=== PATIENT | male | born 1980 | race Caucasian/White ===

== ENCOUNTER 2017-04-06 06:04 | Emergency (ER) | payer SELFPAY ==
[2017-04-06] MEDS ORDERED: ALBUTEROL SULFATE 0.083% NEB 2.5 MG/3 ML AMPUL NEB ONE (07:54)
[2017-04-06] MEDS ORDERED: GUAIFENESIN/D-METHORPHAN (200-20 MG) SYRUP 10 ML PO ONE (07:54)
--- NOTE | 2017-04-06 08:30 | RADIOLOGY REPORT (SQ) ---
EXAM DESCRIPTION: CHEST PA/LAT COMPLETED DATE/TIME: 04/06/2017 8:21 am REASON FOR STUDY: vomiting "dust" cp, lung pain COMPARISON: Chest films 12/01/2010, 04/26/2012 EXAM PARAMETERS: NUMBER OF VIEWS: two views TECHNIQUE: Digital Frontal and Lateral radiographic views of the chest acquired. RADIATION DOSE: NA LIMITATIONS: none FINDINGS: LUNGS AND PLEURA: No opacities, masses or pneumothorax. No pleural effusion. MEDIASTINUM AND HILAR STRUCTURES: No masses or contour abnormalities. HEART AND VASCULAR STRUCTURES: Heart normal size. No evidence for failure. BONES: No acute findings. HARDWARE: None in the chest. OTHER: No other significant finding. IMPRESSION: NO SIGNIFICANT RADIOGRAPHIC FINDING IN THE CHEST. TECHNICAL DOCUMENTATION: JOB ID: [id number] [employer]- All Rights Reserved
--- NOTE | 2017-04-06 08:54 | ER Document Report ---
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 He states when he vomits it is white and "foamy" and looks like white dust. He denies nausea with vomiting, stating that he only vomits because he coughs so much. He denies fevers or chills but states that he has night sweats. He states that the cough is much worse in the morning and then pretty much subsided for the rest of the day but he does have some chest pressure for the rest of the day, shortness of breath. He denies any wheezing, history of asthma or COPD. He does smoke. TRAVEL OUTSIDE OF THE [place] IN LAST 30 DAYS: No - Related Data Allergies/Adverse Reactions: No Known Drug Allergies Allergy (Verified 04/01/14 07:41) Past Medical History - General Information source: Patient - Social History Smoking Status: Current Every Day Smoker Family History: Reviewed & Not Pertinent, Other - does not know family history Past Surgical History: Reports: Hx Oral Surgery - Immunizations Hx Diphtheria, Pertussis, Tetanus Vaccination: Yes - March 2013 Review of Systems - Review of Systems Constitutional: See HPI EENT: No symptoms reported Cardiovascular: No symptoms reported Respiratory: See HPI Gastrointestinal: No symptoms reported Genitourinary: No symptoms reported Male Genitourinary: No symptoms reported Musculoskeletal: No symptoms reported Skin: No symptoms reported Hematologic/Lymphatic: No symptoms reported Neurological/Psychological: No symptoms reported Physical Exam - Notes Notes: PHYSICAL EXAMINATION: GENERAL: Mildly ill-appearing, but in no acute distress. HEAD: Atraumatic, normocephalic. EYES: Pupils equal round and reactive to light, extraocular movements intact, sclera anicteric, conjunctiva are normal. NECK: Normal range of motion, supple without lymphadenopathy LUNGS: CTAB and equal. No wheezes rales or rhonchi. HEART: Regular rate and rhythm without murmurs ABDOMEN: Soft, no tenderness. No guarding, no rebound BACK: no vertebral tenderness, normal ROM GI/: no CVA tenderness EXTREMITIES: Normal range of motion, no pitting edema. No cyanosis. NEUROLOGICAL: Cranial nerves grossly intact. Normal sensory/motor exams. PSYCH: Normal mood, normal affect. SKIN: Warm, Dry, normal turgor, no rashes or lesions noted Course - Re-evaluation Re-evalutation: 04/06/17 08:54 chest x ray negative, pt's vitals are all normal, pulse ox 99-100% on room air with normal respirations. No productive cough here or vomiting. Will place him on azithromycin for 1 month of cough and have him follow up with pulmonology for "white dust/foam" coming up with cough. Discharge - Discharge Clinical Impression: Bronchitis Condition: Stable Disposition: HOME, SELF-CARE Additional Instructions: Return immediately for any new or worsening symptoms. Follow up with primary care provider/time study observer, call tomorrow to make followup appointment. Prescriptions: Azithromycin [Zithromax 250 mg Tablet] 250 mg PO ASDIR PRN #6 tablet PRN Reason: D-Methorphan Hb/Prometh HCl [Promethazine-Dm Syrup] 5 ml PO Q8 PRN #120 ml PRN Reason: Referrals: LESLIE HARVEY MD [ACTIVE STAFF] - Follow up as needed
[2017-04-06] MEDS ORDERED: ALBUTEROL SULFATE HFA (90 MCG/PUFF) 8 GM MDI (1 MDI/ER DISP) IH PRN (08:57)
[2017-04-06 09:08] LABS: ABSOLUTE BASOPHILS # (AUTO) 0.1 10^3/uL (0.0-0.2); ABSOLUTE EOSINOPHILS # (AUTO) 0.2 10^3/uL (0.0-0.6); ABSOLUTE LYMPHOCYTES (AUTO) 3.2 10^3/uL (0.5-4.7); ABSOLUTE MONOCYTES (AUTO) 0.6 10^3/uL (0.1-1.4); ABSOLUTE NEUT (AUTO) 2.1 10^3/uL (1.7-8.2); BASOPHILS % (AUTO) 0.8 % (0-2); EOSINOPHILS % (AUTO) 3.5 % (0-6); HEMATOCRIT 43.2 % (37.9-51.0); HEMOGLOBIN 14.8 g/dL (13.5-17.0); HGB HCT DIFFERENCE 1.2; LYMPHOCYTES % (AUTO) 52.6 % (13-45); MEAN CORPUSCULAR HEMOGLOBIN 32.2 pg (27.0-33.4); MEAN CORPUSCULAR HGB CONC 34.2 g/dL (32.0-36.0); MEAN CORPUSCULAR VOLUME 94 fl (80-97); MONOCYTES % (AUTO) 9.6 % (3-13); RED BLOOD COUNT 4.59 10^6/uL (4.35-5.55); RED CELL DISTRIBUTION WIDTH 13.8 % (11.5-14.0); SEGMENTED NEUTROPHILS % (AUTO) 33.5 % (42-78); WHITE BLOOD COUNT 6.1 10^3/uL (4.0-10.5)
[2017-04-06 09:28] LABS: ANION GAP 14 (5-19); BLOOD UREA NITROGEN 13 mg/dL (7-20); CALCIUM 9.8 mg/dL (8.4-10.2); CARBON DIOXIDE 22 mmol/L (22-30); CHLORIDE 109 mmol/L (98-107); GLUCOSE 87 mg/dL (75-110); POTASSIUM 4.1 mmol/L (3.6-5.0); SODIUM 145.2 mmol/L (137-145)
[2017-04-06 09:35] VITALS: BP 141/97
[2017-04-06 09:37] LABS: ALANINE AMINOTRANSFERASE 25 U/L (21-72); ALBUMIN 4.5 g/dL (3.5-5.0); ALKALINE PHOSPHATASE 69 U/L (38-126); ASPARTATE AMINO TRANSFERASE 18 U/L (17-59); BILIRUBIN,DIRECT 0.4 mg/dL (0.0-0.4); BILIRUBIN,TOTAL 0.5 mg/dL (0.2-1.3); LIPASE 314.1 U/L (23-300); TOTAL PROTEIN 7.4 g/dL (6.3-8.2)
[2017-04-06 11:35] LABS: PROTHROMBIN TIME 11.9 SEC (11.4-15.4)
--- NOTE | 2017-04-06 13:45 | EKG REPORT ---
SEVERITY:- ABNORMAL ECG - SINUS RHYTHM ABNRM R PROG, CONSIDER ASMI OR LEAD PLACEMENT V1 AND V2 FLIPPED. : Confirmed by: Cristofer Pacheco MD 06-Apr-2017 13:44:38
== END 2017-04-06 09:42 | disposition home or self-care (01) ==
LOC: ER 06:04
DX: J40 Bronchitis, not specified as acute or chronic (principal); R05 Cough; R61 Generalized hyperhidrosis; R07.89 Other chest pain; R06.02 Shortness of breath; F17.200 Nicotine dependence, unspecified, uncomplicated
CPT/HCPCS: 36415; 71020; 80053; 83690; 85025; 85610; 93005; 93010; 99284

== ENCOUNTER 2018-02-02 16:58 | Emergency (ER) | payer SELFPAY ==
[2018-02-02 17:04] VITALS: BP 166/105
--- NOTE | 2018-02-02 17:22 | ER Document Report ---
HPI - HPI Pain Level: 2 Notes: Patient is a 37-year-old male with no significant past medical history who presents to the ED complaining of posterior rib pain to his mid to lower ribs status post injury 2-3 days ago. Patient states that he slipped getting out of the bathtub and hit his ribs against the toilet. Patient states that he does have some bruising noted in that area and occasional pain with a deep breath on that posterior rib side. Patient states that he is otherwise eating and drinking without difficulties. He is able to ambulate without any difficulties as well or dyspnea on exertion. He denies any drug allergies or being on any blood thinners. Patient states that he just wants his ribs checked out and would like an x-ray. Denies any drug allergies. Patient does admit to smoking but denies IV drug use. Denies any loss of consciousness. Denies any headache , fever, head injury, neck pain, changes in vision/speech/mentation/hearing, URI , sore throat, chest pain, palpitations, syncope, cough, shortness of breath, wheeze, dyspnea, abdominal pain, nausea/vomiting/diarrhea, urinary retention, dysuria, hematuria, loss of control of bowel or bladder, numbness/tingling, saddle anesthesia, muscle paralysis/weakness, or rash. - ROS Systems Reviewed and Negative: Yes All other systems reviewed and negative Past Medical History - Social History Smoking Status: Current Every Day Smoker Family History: Reviewed & Not Pertinent, Other - does not know family history Past Surgical History: Reports: Hx Oral Surgery - Immunizations Hx Diphtheria, Pertussis, Tetanus Vaccination: Yes - March 2013 Vertical Provider Document - CONSTITUTIONAL Agree With Documented VS: Yes Notes: PHYSICAL EXAMINATION: GENERAL: Well-appearing, well-nourished and in no acute distress. LUNGS: Breath sounds clear to auscultation bilaterally and equal. No wheezes rales or rhonchi. HEART: Regular rate and rhythm without murmurs, rubs, gallops. ABDOMEN: Soft, nontender, nondistended abdomen. No guarding, no rebound. No masses appreciated. Normal bowel sounds present. No CVA tenderness bilaterally. No pulsatile mass Musculoskeletal: LE's b/l: FROM to passive/active. Strength 5+/5. No deficits noted. No bony tenderness of extremities. Back: FROM to passive/active. Strength 5+/5. No vertebral point tenderness, stepoffs, or deformities. SLR negative b/l. No SI jt tenderness. No foot drop + scant ecchymosis to the rt posterior mid/lower ribs with tenderness to palp, correlates with pain described. No chest wall tenderness. No obvious step- offs. Extremities: No cyanosis, clubbing, or edema b/l. Peripheral pulses 2+. Capillary refill less than 2 seconds. NEUROLOGICAL: Normal speech, normal gait. Normal sensory, motor exams. Reflexes 2+ b/l. PSYCH: Normal mood, normal affect. SKIN: Warm, Dry, normal turgor, no rashes or lesions noted. - INFECTION CONTROL TRAVEL OUTSIDE OF THE [place] IN LAST 30 DAYS: No Course - Re-evaluation Re-evalutation: 02/02/18 17:47 Patient is an afebrile, well-hydrated, 37-year-old male who presents to the ED with right posterior rib pain, suspect contusion. Vitals are acceptable. PE is otherwise unremarkable. X-ray was unremarkable for any acute pathology. He has no significant tachycardia, tachypnea, or hypoxia. Lungs are clear to auscultation bilaterally with breath sounds present throughout. Patient is tolerating p.o. without difficulties. I did visually inspect patient's urine and there is no bre hematuria. No other labs or imaging warranted at this time based on H&P. Low suspicion for any meningitis, fracture, expanding/ ruptured AAA, cauda equina syndrome, epidural mass lesion/abscess, herniated disc causing severe spinal stenosis, or other systemic infection at this time. Patient is aware that his condition can change from initial presentation and that he needs monitor symptoms closely for any acute changes. I will send him home with a prescription for naproxen. Conservative measures otherwise for symptoms. Recheck with your PCM in 3-5 days. Consider consult orthopedics. Return to the ED with any worsening/concerning symptoms otherwise as reviewed discharge. Patient is in agreement. - Vital Signs Vital signs: Temp Pulse Resp BP Pulse Ox 98.6 F 79 18 166/105 H 97 02/02/18 17:03 02/02/18 17:03 02/02/18 17:03 02/02/18 17:03 02/02/18 17:03 Discharge - Discharge Clinical Impression: Rib pain on right side Condition: Stable Disposition: HOME, SELF-CARE Instructions: Rib Contusion ([facility]) Additional Instructions: Rest, Ice, Compression Tylenol/ibuprofen as needed Light stretches daily Strength exercises as able Moist heat and massage may help F/u with your PCP in 3-5 days for a recheck Consider consult(s) with Orthopedics/physical therapy for ongoing/worsening symptoms Return to the ED with any worsening symptoms and/or development of fever, headache, chest pain, palpitations, syncope, shortness of breath, trouble breathing, abdominal pain, n/v/d, blood in stool/urine, loss of control of bowel /bladder, urinary retention, muscle weakness/paralysis, saddle anesthesia, numbness/tingling, or other worsening symptoms that are concerning to you. Prescriptions: Naproxen 500 mg PO BID PRN #30 tablet PRN Reason: Forms: Elevated Blood Pressure, Return to Work Referrals: [facility] [Provider Group] - Follow up as needed
--- NOTE | 2018-02-02 17:36 | RADIOLOGY REPORT (SQ) ---
EXAM DESCRIPTION: RIBS RIGHT W/PA CHEST COMPLETED DATE/TIME: 02/02/2018 5:24 pm REASON FOR STUDY: rib pain s/p fall COMPARISON: None. TECHNIQUE: Frontal view of the chest and additional views of the right ribs acquired. NUMBER OF VIEWS: 4 LIMITATIONS: None. FINDINGS: FRONTAL CXR: No pneumothorax. No pleural effusion. No atelectasis or infiltrates. RIBS: No displaced rib fractures. No lytic or blastic bony lesions. OTHER: No other significant finding. IMPRESSION: NO PNEUMOTHORAX. NO DISPLACED RIB FRACTURES. COMMENT: SITE OF TRAUMA/COMPLAINT MARKED/STAMP COMPLETED: YES. TECHNICAL DOCUMENTATION: JOB ID: [id number] [employer]- All Rights Reserved Reading location - IP/workstation name: [email or web address]
== END 2018-02-02 18:19 | disposition home or self-care (01) ==
LOC: ER 16:58
DX: R07.81 Pleurodynia (principal); W01.198A Fall on same level from slipping, tripping and stumbling with subsequent striking against other object, initial encounter; Y93.E1 Activity, personal bathing and showering; F17.200 Nicotine dependence, unspecified, uncomplicated
CPT/HCPCS: 99283

== ENCOUNTER 2018-07-25 05:52 | Emergency (ER) | payer SELFPAY ==
--- NOTE | 2018-07-25 07:11 | RADIOLOGY REPORT (SQ) ---
EXAM DESCRIPTION: XR HAND 3 OR MORE VIEWS COMPLETED DATE/TME: 07/25/2018 00:00 CLINICAL HISTORY: 37 years Male, punched a wall COMPARISON: None. Findings: 0.2 cm avulsion fracture fragment at the medial base of the right first metacarpus.. 0.3 x 0.1 cm curvilinear calcification associated with the right triquetrum at the medial aspect of the right wrist may indicate triquetral fracture of indeterminate age. Bones, joints, and soft tissues of the RIGHT XR HAND 4VIEWS appear otherwise intact. IMPRESSION: 1. A 0.2 cm avulsion fracture fragment at the base of the right first metacarpus. 2. Tiny triquetral fracture fragment or calcification.
[2018-07-25] MEDS ORDERED: ACETAMINOPHEN 325 MG TABLET ONE (07:31)
[2018-07-25] MEDS ORDERED: ACETAMINOPHEN 325 MG TABLET PO ONE (07:33)
[2018-07-25] MEDS ORDERED: KETOROLAC TROMETHAMINE 60 MG/2 ML SDV IM ONE (07:40)
--- NOTE | 2018-07-25 07:57 | ER Document Report ---
HPI - HPI Time Seen by Provider: 07/25/18 07:12 Pain Level: 3 Notes: Patient is a 37-year-old male who presents with chief complaint of right hand and wrist pain. Patient reports that he punched a wall last night. - MUSCULOSKELETAL Musculoskeletal: REPORTS: Extremity pain - R hand after punching a door Past Medical History - General Information source: Patient - Social History Smoking Status: Current Every Day Smoker Frequency of alcohol use: Social Drug Abuse: None Family History: Reviewed & Not Pertinent, Other - does not know family history Patient has suicidal ideation: No Patient has homicidal ideation: No - Medical History Medical History: Negative Renal/ Medical History: Denies: Hx Peritoneal Dialysis Past Surgical History: Reports: Hx Oral Surgery, Hx Orthopedic Surgery - Immunizations Hx Diphtheria, Pertussis, Tetanus Vaccination: Yes - March 2013 Vertical Provider Document - CONSTITUTIONAL Notes: PHYSICAL EXAMINATION: GENERAL: Well-appearing, well-nourished and in no acute distress. HEAD: Atraumatic, normocephalic. EYES: Pupils equal round extraocular movements intact, conjunctiva are normal. ENT: Nares patent NECK: Normal range of motion LUNGS: No respiratory distress Musculoskeletal: Limited range of motion to right hand, normal sensation distal to injury. Radial and ulnar pulses are present. No open wounds noted. No snuffbox tenderness. NEUROLOGICAL: Normal speech, normal gait. PSYCH: Normal mood, normal affect. SKIN: Warm, Dry, normal turgor, no rashes or lesions noted. - INFECTION CONTROL TRAVEL OUTSIDE OF THE [place] IN LAST 30 DAYS: No Course - Re-evaluation Re-evalutation: 07/25/18 07:52 X-ray reveals a 0.2 cm avulsion fracture fragment at the base of the right first metacarpus, there is also a tiny triquetral fracture fragment or calcification noted. Patient will be placed in a splint and referred to orthopedics. Patient requesting non-opioid analgesics. - Vital Signs Vital signs: Temp Pulse Resp BP Pulse Ox 97.6 F 89 16 152/110 H 96 07/25/18 05:56 07/25/18 05:56 07/25/18 05:56 07/25/18 05:56 07/25/18 05:56 Discharge - Discharge Clinical Impression: Right hand fracture Qualifiers: Encounter type: initial encounter Fracture type: closed Qualified Code(s): S62.91XA - Unspecified fracture of right wrist and hand, initial encounter for closed fracture Condition: Stable Disposition: HOME, SELF-CARE Additional Instructions: Fracture You have a fracture. The typical broken bone requires only protection and sufficient time for healing. "Setting" is necessary only if the bones are crooked or out of position. The physician will re-assess you periodically to make certain that the bone heals without complications. It's important that you follow the instructions given you. The initial treatment is immobilization, elevation of the injury, and cold packs. Not all fractures require a cast. Depending on the location and type of fracture, immobilization may consist of a splint, cast, sling, bulky dressing , or simply rest. The length of time required for healing depends on the location and type of fracture, and on the age of the patient. The treatment plan the physician has outlined for you is customized to your fracture and health condition. Call the doctor or return at once if pain becomes severe, or if severe swelling or numbness develop. Ice & Elevation Apply ice packs frequently against the painful area. Many different schedules are recommended, such as "20 minutes on, 20 minutes off" or "one hour ice, two hours rest." If you need to work, you may need to go longer between ice treatments. You should plan to have the area ice packed AT LEAST one- fourth of the time. The ice should be applied over the wrap, tape, or splint, or over a layer of cloth -- not directly against the skin. Some ice bags have a built-in cloth and can be put directly on the skin. Your injured part should be elevated as much as possible over the next 48 hours. Try to keep the injury above the level of the heart. Avoid use of the injured area. Elevation and rest will decrease the swelling. Ibuprofen Ibuprofen is an excellent, safe drug for pain control. In addition, it has potent antiinflammatory effects which are beneficial, especially in the treatment of injuries, arthritis, or tendonitis. It's best to take ibuprofen with food. Persons with ulcer disease or allergy to aspirin should notify their physician of this before taking ibuprofen. Take the medication exactly as prescribed. Don't take additional doses unless instructed to do so by your doctor. If you develop wheezing, shortness of breath, hives, faintness, stomach pain, vomiting, or dark black stools, return for re-evaluation at once. Please take ibuprofen 800 mg every 8 hours for pain. You can also take Tylenol 650 mg every 4 hours. Ice and elevate as outlined above. Follow-up with orthopedics, call them tomorrow to set up an appointment. Return to the emergency department if you develop extreme pain, severe swelling or numbness. Prescriptions: Ibuprofen [Motrin 800 mg Tablet] 800 mg PO Q8H PRN #30 tab PRN Reason: Forms: Return to Work
[2018-07-25 08:45] VITALS: BP 159/111
== END 2018-07-25 08:43 | disposition home or self-care (01) ==
LOC: ER 05:52
DX: S62.231A Other displaced fracture of base of first metacarpal bone, right hand, initial encounter for closed fracture (principal); W22.8XXA Striking against or struck by other objects, initial encounter; F17.200 Nicotine dependence, unspecified, uncomplicated
CPT/HCPCS: 99283

== ENCOUNTER 2018-08-28 10:39 | Emergency (ER) | payer SELFPAY ==
[2018-08-28 11:02] VITALS: BP 150/101
== END 2018-08-28 15:55 | disposition left against medical advice (07) ==
LOC: ER 10:39
DX: Z53.21 Procedure and treatment not carried out due to patient leaving prior to being seen by health care provider (principal)

== ENCOUNTER 2018-08-30 08:11 | Emergency (ER) | payer SELFPAY ==
--- NOTE | 2018-08-30 09:39 | ER Document Report ---
ED General - General Chief Complaint: Cough Stated Complaint: FLU LIKE SYMPTOMS Time Seen by Provider: 08/30/18 09:20 Notes: Patient is a 37-year-old male that presents to the emergency department for chief complaint of cough and shortness of breath patient states his been having cough is been having body aches and is generally weak, has had nausea and vomiting associated as well. He states he coughed so hard that he vomits. He said associated diarrhea with this as well but denies of any chest pain or abdominal pain. Has had fevers he is unaware of any sick contacts although his, but has not been as sick as him without the GI symptoms. He denies any other complaints at this time. Currently rates his pain as a 4 out of 10 is gener alized aching over the body. Past Medical History: Denies chronic medical conditions Past Surgical History: Hernia repair Social History: Admits to smoking cigarettes daily, denies alcohol or illicit drug use. Family History: Reviewed and noncontributory for presenting illness Allergies: Reviewed, see documented allergy list. REVIEW OF SYSTEMS: Other than noted above, the 12 point review of systems was reviewed with the patient and were negative, all pertinent findings are included in the HPI. PHYSICAL EXAMINATION: Vital signs reviewed, nursing noted reviewed. GENERAL: Ill-appearing male, coughing on exam HEAD: Atraumatic, normocephalic. EYES: Eyes appear normal, extraocular movements intact, sclera anicteric, conjunctiva are normal. ENT: nares patent, oropharynx clear without exudates. Moist mucous membranes. NECK: Normal range of motion, supple without lymphadenopathy LUNGS: Some mild expiratory wheezing noted throughout all lung tolbert, no respiratory distress however HEART: Rate tachycardic, regular rhythm, no audible murmur ABDOMEN: Soft, nontender, normoactive bowel sounds. No rebound, guarding, or rigidity. No masses appreciated. EXTREMITIES: Nontender, good range of motion, no pitting or edema. NEUROLOGICAL: No focal neurological deficits. Moves all extremities spontaneously Motor and sensory grossly intact on exam. PSYCH: Normal mood, normal affect. SKIN: Warm, Dry, normal turgor, no rashes or lesions noted on exposed skin TRAVEL OUTSIDE OF THE [place] IN LAST 30 DAYS: No - Related Data Allergies/Adverse Reactions: No Known Drug Allergies Allergy (Verified 08/30/18 08:14) Past Medical History - Social History Smoking Status: Current Every Day Smoker Family History: Reviewed & Not Pertinent, Other - does not know family history Renal/ Medical History: Denies: Hx Peritoneal Dialysis Past Surgical History: Reports: Hx Oral Surgery, Hx Orthopedic Surgery - Immunizations Hx Diphtheria, Pertussis, Tetanus Vaccination: Yes - March 2013 Physical Exam - Vital signs Vitals: Temp Pulse Resp BP Pulse Ox 98.2 F 124 H 20 130/82 H 96 08/30/18 08:18 08/30/18 08:18 08/30/18 08:18 08/30/18 08:18 08/30/18 08:18 Course - Re-evaluation Re-evalutation: Patient seen and examined vital signs reviewed. Laboratory data and imaging were ordered as appropriate for the patient's presenting symptoms and complaint, with consideration of any critical or life threatening conditions that may be associated with their obtained history and exam as noted above. Patient was treated with IV fluid bolusing times 2 L, given Toradol for his pain as well and his body aches, he is also given a DuoNeb breathing treatment Results were reviewed when available and demonstrated chest x-ray which revealed right upper lobe infiltrate, concerning for pneumonia, which fit clinically with his presentation, there is no leukocytosis, patient did however was noted to have transaminitis, likely secondary to his acute illness, patient did not have any right upper quadrant abdominal pain, denied history of hepatitis, he was nonjaundiced, I advised him as he was feeling better after treatment with IV fluids, and given a dose of IV doxycycline, that he will need to follow-up with a primary care physician to repeat this blood work in 2 weeks to see if it is improving or changing, as he may need acute hepatitis panel he. Patient verbalized agreement to this plan of care, he will be prescribed a prescription for doxycycline and given albuterol inhaler to take at home as well. He is also given a prescription for Tessalon Perles Evaluation was most consistent with community-acquired pneumonia Results were discussed with the patient at this point, after careful consideration I feel that that patient can be discharged from the emergency department, the patient was educated treatments and reasons to return to the emergency department based on their presumed diagnosis as noted above, they were advised to followup with a primary care physician in 2-3 days. Patient was agreeable to plan of care. *Note is created using voice recognition software and may contain spelling, syntax or grammatical errors. Laboratory 08/30/18 08/30/18 08/30/18 09:43 09:43 09:43 WBC 7.1 RBC 4.84 Hgb 15.7 Hct 43.8 MCV 90 MCH 32.4 MCHC 35.8 RDW 13.2 Plt Count 144 L Seg Neutrophils % 82.8 H Lymphocytes % 11.0 L Monocytes % 5.9 Eosinophils % 0.0 Basophils % 0.3 Absolute Neutrophils 5.9 Absolute Lymphocytes 0.8 Absolute Monocytes 0.4 Absolute Eosinophils 0.0 Absolute Basophils 0.0 PT 14.1 INR 1.04 Sodium 134.4 L Potassium 3.3 L Chloride 99 Carbon Dioxide 20 L Anion Gap 15 BUN 18 Creatinine 1.02 Est GFR ( Amer) > 60 Est GFR (Non-Af Amer) > 60 Glucose 105 Calcium 9.4 Total Bilirubin 0.8 Direct Bilirubin 0.5 H Neonat Total Bilirubin Not Reportable Neonat Direct Bilirubin Not Reportable Neonat Indirect Bili Not Reportable AST 549 H ALT 414 H Alkaline Phosphatase 172 H Troponin I Total Protein 6.8 Albumin 4.4 Influenza A (Rapid) Influenza B (Rapid) 08/30/18 08/30/18 09:43 10:02 WBC RBC Hgb Hct MCV MCH MCHC RDW Plt Count Seg Neutrophils % Lymphocytes % Monocytes % Eosinophils % Basophils % Absolute Neutrophils Absolute Lymphocytes Absolute Monocytes Absolute Eosinophils Absolute Basophils PT INR Sodium Potassium Chloride Carbon Dioxide Anion Gap BUN Creatinine Est GFR ( Amer) Est GFR (Non-Af Amer) Glucose Calcium Total Bilirubin Direct Bilirubin Neonat Total Bilirubin Neonat Direct Bilirubin Neonat Indirect Bili AST ALT Alkaline Phosphatase Troponin I < 0.012 Total Protein Albumin Influenza A (Rapid) NEGATIVE Influenza B (Rapid) NEGATIVE Chest X-Ray 08/30/18 09:20 IMPRESSION: New right upper lobe hazy opacification most compatible with pneumonia. - Vital Signs Vital signs: Temp Pulse Resp BP Pulse Ox 98.1 F 124 H 14 135/93 H 93 08/30/18 12:01 08/30/18 08:18 08/30/18 12:01 08/30/18 12:01 08/30/18 12:01 - Laboratory Result Diagrams: 08/30/18 09:43 08/30/18 09:43 Laboratory results interpreted by me: 08/30/18 08/30/18 09:43 09:43 Plt Count 144 L Seg Neutrophils % 82.8 H Lymphocytes % 11.0 L Sodium 134.4 L Potassium 3.3 L Carbon Dioxide 20 L Direct Bilirubin 0.5 H AST 549 H ALT 414 H Alkaline Phosphatase 172 H - EKG Interpretation by Me Additional EKG results interpreted by me: EKG demonstrates sinus rhythm with a ventricular rate of 89 bpm, left axis deviation, normal intervals, no evidence of acute ischemia in this EKG, this is compared with prior EKG from 04/06/2017, without significant change. Discharge - Discharge Clinical Impression: Transaminitis Community acquired pneumonia Qualifiers: Laterality: right Lung location: upper lobe of lung Qualified Code(s): J18.1 - Lobar pneumonia, unspecified organism Condition: Stable Disposition: HOME, SELF-CARE Instructions: Pneumonia ([facility]) Additional Instructions: Please take the prescribed antibiotics twice daily for 10 days, and please follow-up with a primary care physician, you having given 2 phone numbers to call to try to get in contact with 1, use the albuterol inhaler you are given 2 puffs every 4 hours as needed, and take the Tessalon Perles to help with her cough. If your symptoms are not improving in the next 48 hours or worsening over that period of time, do not hesitate to return to the emergency department. Prescriptions: Benzonatate [Tessalon Perle 100 mg Capsule] 100 mg PO Q8HP PRN #30 cap PRN Reason: Cough RX: Doxycycline Hyclate 100 mg PO BID #20 capsule Forms: Return to Work Referrals: [facility] [Provider Group] - Follow up in 3-5 days [facility] [Provider Group] - Follow up in 3-5 days
[2018-08-30] MEDS ORDERED: ONDANSETRON HCL INJ/PF 4 MG/2 ML SDV IV ONE (09:49)
[2018-08-30] MEDS ORDERED: NORMAL SALINE 1000 ML 1,000 ML IV ONE (09:49)
[2018-08-30] MEDS ORDERED: KETOROLAC TROMETHAMINE INJ/PF 30 MG/1 ML SDV IV ONE (09:50)
--- NOTE | 2018-08-30 09:50 | RADIOLOGY REPORT (SQ) ---
EXAM DESCRIPTION: CHEST SINGLE VIEW COMPLETED DATE/TIME: 08/30/2018 9:40 am REASON FOR STUDY: chest pain COMPARISON: 04/06/2017 EXAM PARAMETERS: NUMBER OF VIEWS: One view. TECHNIQUE: Single frontal radiographic view of the chest acquired. RADIATION DOSE: NA LIMITATIONS: None. FINDINGS: LUNGS AND PLEURA: New hazy opacification of the right upper lobe. No pleural effusion or pneumothorax. MEDIASTINUM AND HILAR STRUCTURES: No masses. Contour normal. HEART AND VASCULAR STRUCTURES: Heart normal in size. Normal vasculature. BONES: No acute findings. HARDWARE: None in the chest. OTHER: No other significant finding. IMPRESSION: New right upper lobe hazy opacification most compatible with pneumonia. TECHNICAL DOCUMENTATION: JOB ID: [id number] [employer]- All Rights Reserved Reading location - IP/workstation name: [email or web address]
[2018-08-30 09:56] LABS: ABSOLUTE LYMPHOCYTES (AUTO) 0.8 10^3/uL (0.5-4.7); ABSOLUTE MONOCYTES (AUTO) 0.4 10^3/uL (0.1-1.4); ABSOLUTE NEUT (AUTO) 5.9 10^3/uL (1.7-8.2); BASOPHILS % (AUTO) 0.3 % (0-2); HEMATOCRIT 43.8 % (37.9-51.0); HEMOGLOBIN 15.7 g/dL (13.5-17.0); MEAN CORPUSCULAR HEMOGLOBIN 32.4 pg (27.0-33.4); MEAN CORPUSCULAR HGB CONC 35.8 g/dL (32.0-36.0); MEAN CORPUSCULAR VOLUME 90 fl (80-97); MONOCYTES % (AUTO) 5.9 % (3-13); PLATELET COUNT 144 10^3/uL (150-450); RED BLOOD COUNT 4.84 10^6/uL (4.35-5.55); RED CELL DISTRIBUTION WIDTH 13.2 % (11.5-14.0); SEGMENTED NEUTROPHILS % (AUTO) 82.8 % (42-78); TOTAL CELLS COUNTED % (AUTO) 100 %; WHITE BLOOD COUNT 7.1 10^3/uL (4.0-10.5)
[2018-08-30 10:03] LABS: INTERNATIONAL RATION (INR) 1.04; PROTHROMBIN TIME 14.1 SEC (11.4-15.4)
[2018-08-30] MEDS ORDERED: DOXYCYCLINE HYCLATE INJ 100 MG VIAL IV ONE (10:04)
[2018-08-30] MEDS ORDERED: IPRATROPIUM/ALBUTEROL 0.5-2.5 MG/3 ML AMPUL NEB ONE (10:10)
[2018-08-30 10:13] LABS: ALANINE AMINOTRANSFERASE 414 U/L (21-72); ALBUMIN 4.4 g/dL (3.5-5.0); ALKALINE PHOSPHATASE 172 U/L (38-126); ANION GAP 15 (5-19); ASPARTATE AMINO TRANSFERASE 549 U/L (17-59); BILIRUBIN,DIRECT 0.5 mg/dL (0.0-0.4); BILIRUBIN,TOTAL 0.8 mg/dL (0.2-1.3); BLOOD UREA NITROGEN 18 mg/dL (7-20); CALCIUM 9.4 mg/dL (8.4-10.2); CARBON DIOXIDE 20 mmol/L (22-30); CHLORIDE 99 mmol/L (98-107); GLUCOSE 105 mg/dL (75-110); POTASSIUM 3.3 mmol/L (3.6-5.0); SODIUM 134.4 mmol/L (137-145); TOTAL PROTEIN 6.8 g/dL (6.3-8.2)
[2018-08-30 10:32] LABS: A TYPE INFLUENZA AG NEGATIVE (NEGATIVE); B INFLUENZA AG NEGATIVE (NEGATIVE)
--- NOTE | 2018-08-30 11:08 | EKG REPORT ---
SEVERITY:- ABNORMAL ECG - SINUS RHYTHM LAD, CONSIDER LEFT ANTERIOR FASCICULAR BLOCK : Confirmed by: Cristofer Pacheco MD 30-Aug-2018 11:06:49
[2018-08-30] MEDS ORDERED: RINGERS SOLUTION,LACTATED 1,000 ML IV ONE (11:25)
[2018-08-30] MEDS ORDERED: ALBUTEROL SULFATE HFA (90 MCG/PUFF) 8 GM MDI (1 MDI/ER DISP) IH ONE (12:09)
[2018-08-30 12:29] VITALS: BP 135/93
== END 2018-08-30 12:39 | disposition home or self-care (01) ==
LOC: ER 08:11
DX: J18.1 Lobar pneumonia, unspecified organism (principal); R74.0 Nonspecific elevation of levels of transaminase and lactic acid dehydrogenase [LDH]; R05 Cough; R06.02 Shortness of breath; R53.1 Weakness; R11.2 Nausea with vomiting, unspecified; R52 Pain, unspecified; R19.7 Diarrhea, unspecified; R06.2 Wheezing; R00.0 Tachycardia, unspecified; F17.210 Nicotine dependence, cigarettes, uncomplicated
CPT/HCPCS: 93005; 36415; 85025; 85610; 80053; 84484; 87804; 71045; 93010; J3490 ×2; J1885; J2405; J7030; J7120; J7620

== ENCOUNTER 2018-09-06 09:35 | Inpatient (IN) | payer SELFPAY ==
[2018-09-06] MEDS ORDERED: ALBUTEROL SULFATE 0.083% NEB 2.5 MG/3 ML AMPUL NEB ONE (10:00)
--- NOTE | 2018-09-06 10:02 | ER Document Report ---
ED Medical Screen (RME) - General Chief Complaint: Cold Symptoms Stated Complaint: HEADACHE/CHEST DISCOMFORT Time Seen by Provider: 09/06/18 09:54 Notes: 37-year-old male. Here third visit for worsening pneumonia, shortness of breath, chest pain. Went back to work 2 days ago but having extreme shortness of breath at this time as well as some right-sided chest pain. I have greeted and performed a rapid initial assessment of this patient. A comprehensive ED assessment and evaluation of the patient, analysis of test results and completion of the medical decision making process will be conducted by additional ED providers. TRAVEL OUTSIDE OF THE [place] IN LAST 30 DAYS: No - Related Data Allergies/Adverse Reactions: No Known Drug Allergies Allergy (Verified 09/06/18 09:36) Past Medical History - Social History Frequency of alcohol use: None Drug Abuse: None Renal/ Medical History: Denies: Hx Peritoneal Dialysis Past Surgical History: Reports: Hx Oral Surgery, Hx Orthopedic Surgery - Immunizations Hx Diphtheria, Pertussis, Tetanus Vaccination: Yes - March 2013 Review of Systems - Review of Systems Notes: Review of systems positive for the following: Shortness of breath, chest pain, intermittent fever Physical Exam - Vital signs Vitals: Temp Pulse Resp BP Pulse Ox 97.4 F 75 20 147/91 H 98 09/06/18 09:44 09/06/18 09:44 09/06/18 09:44 09/06/18 09:44 09/06/18 09:44 - Respiratory Respiratory status: No respiratory distress Chest status: Nontender Breath sounds: Rales, Wheezing - Cardiovascular Rhythm: Regular Heart sounds: Normal auscultation Murmur: No Course - Vital Signs Vital signs: Temp Pulse Resp BP Pulse Ox 97.4 F 75 20 147/91 H 98 09/06/18 09:44 09/06/18 09:44 09/06/18 09:44 09/06/18 09:44 09/06/18 09:44
[2018-09-06 10:16] LABS: ABSOLUTE LYMPHOCYTES (AUTO) 1.2 10^3/uL (0.5-4.7); ABSOLUTE MONOCYTES (AUTO) 0.7 10^3/uL (0.1-1.4); ABSOLUTE NEUT (AUTO) 4.1 10^3/uL (1.7-8.2); BASOPHILS % (AUTO) 0.3 % (0-2); EOSINOPHILS % (AUTO) 0.4 % (0-6); HEMATOCRIT 35.4 % (37.9-51.0); HEMOGLOBIN 12.6 g/dL (13.5-17.0); LYMPHOCYTES % (AUTO) 20.3 % (13-45); MEAN CORPUSCULAR HEMOGLOBIN 31.9 pg (27.0-33.4); MEAN CORPUSCULAR HGB CONC 35.5 g/dL (32.0-36.0); MEAN CORPUSCULAR VOLUME 90 fl (80-97); MONOCYTES % (AUTO) 11.4 % (3-13); PLATELET COUNT 386 10^3/uL (150-450); RED BLOOD COUNT 3.94 10^6/uL (4.35-5.55); RED CELL DISTRIBUTION WIDTH 13.4 % (11.5-14.0); SEGMENTED NEUTROPHILS % (AUTO) 67.6 % (42-78); TOTAL CELLS COUNTED % (AUTO) 100 %; WHITE BLOOD COUNT 6.1 10^3/uL (4.0-10.5)
[2018-09-06] MEDS ORDERED: IPRATROPIUM/ALBUTEROL 0.5-2.5 MG/3 ML AMPUL NEB ONE (10:25)
[2018-09-06] MEDS ORDERED: KETOROLAC TROMETHAMINE INJ/PF 30 MG/1 ML SDV IV ONE (10:25)
[2018-09-06] MEDS ORDERED: NORMAL SALINE 1000 ML 1,000 ML IV ONE (10:25)
[2018-09-06 10:34] LABS: ALANINE AMINOTRANSFERASE 87 U/L (21-72); ALBUMIN 3.7 g/dL (3.5-5.0); ALKALINE PHOSPHATASE 203 U/L (38-126); ANION GAP 11 (5-19); ASPARTATE AMINO TRANSFERASE 34 U/L (17-59); BILIRUBIN,DIRECT 0.7 mg/dL (0.0-0.4); BILIRUBIN,TOTAL 0.9 mg/dL (0.2-1.3); BLOOD UREA NITROGEN 11 mg/dL (7-20); CALCIUM 9.4 mg/dL (8.4-10.2); CARBON DIOXIDE 27 mmol/L (22-30); CHLORIDE 102 mmol/L (98-107); GLUCOSE 111 mg/dL (75-110); TOTAL PROTEIN 6.6 g/dL (6.3-8.2)
--- NOTE | 2018-09-06 10:34 | ER Document Report ---
ED General - General Chief Complaint: Cold Symptoms Stated Complaint: HEADACHE/CHEST DISCOMFORT Time Seen by Provider: 09/06/18 09:54 TRAVEL OUTSIDE OF THE [place] IN LAST 30 DAYS: No - HPI Notes: Patient is a 37-year-old male that presents to the emergency department for chief complaint of cough and shortness of breath. Patient reports increased dyspnea and coughing for the last week and a half. He is currently on doxycycline that was written on 08/30/18. Patient states his symptoms have intermittently improved with the albuterol inhaler at home. He states at night his coughing is significantly worse. He denies night sweats. He denies any known history of TB. Patient states that he tried to go back to work on Tuesday but was unable to because of increased coughing. Past Medical History: Negative Past Surgical History: Hernia repair Social History: Daily tobacco. Denies drugs and alcohol Family History: Reviewed and noncontributory for presenting illness Allergies: Reviewed, see documented allergy list. REVIEW OF SYSTEMS: CONSTITUTIONAL : No fever No chills No diaphoresis No recent illness EENT: No vision changes No congestion No sore throat CARDIOVASCULAR: No chest pain No palpitations RESPIRATORY: shortness of breath cough difficulty breathing GASTROINTESTINAL: No abdominal pain No nausea No vomiting No diarrhea GENITOURINARY: No dysuria No hematuria No difficulty urinating MUSCULOSKELETAL: No back pain No leg pain No arm pain SKIN: No rashes No lesions LYMPHATIC: No swollen, enlarged glands. NEUROLOGICAL: No lightheadedness No headache No weakness No paresthesias PSYCHIATRIC: No anxiety No depression PHYSICAL EXAMINATION: Vital signs reviewed, nursing noted reviewed. GENERAL: Well-appearing, well-nourished and in no acute distress. HEAD: Atraumatic, normocephalic. EYES: Eyes appear normal, extraocular movements intact, sclera anicteric, conjunctiva are normal. ENT: nares patent, oropharynx clear without exudates. Moist mucous membranes. NECK: Normal range of motion, supple without lymphadenopathy LUNGS: Diffuse wheezing. Right basilar rhonchi. No accessory muscle use or distress HEART: Regular rate and rhythm without murmurs ABDOMEN: Soft, nontender, normoactive bowel sounds. No rebound, guarding, or rigidity. No masses appreciated. EXTREMITIES: Nontender, good range of motion, no pitting or edema. NEUROLOGICAL: No focal neurological deficits. Moves all extremities spontaneously Motor and sensory grossly intact on exam. PSYCH: Normal mood, normal affect. SKIN: Warm, Dry, normal turgor, no rashes or lesions noted on exposed skin - Related Data Allergies/Adverse Reactions: No Known Drug Allergies Allergy (Verified 09/06/18 09:36) Past Medical History - Social History Smoking Status: Current Every Day Smoker Frequency of alcohol use: None Drug Abuse: None Family History: Reviewed & Not Pertinent, Other - does not know family history Patient has suicidal ideation: No Patient has homicidal ideation: No Renal/ Medical History: Denies: Hx Peritoneal Dialysis Past Surgical History: Reports: Hx Oral Surgery, Hx Orthopedic Surgery - Immunizations Hx Diphtheria, Pertussis, Tetanus Vaccination: Yes - March 2013 Physical Exam - Vital signs Vitals: Temp Pulse Resp BP Pulse Ox 97.4 F 75 20 147/91 H 98 09/06/18 09:44 09/06/18 09:44 09/06/18 09:44 09/06/18 09:44 09/06/18 09:44 Course - Re-evaluation Re-evalutation: 09/06/18 10:45 Vitals reviewed. Nursing notes reviewed. Patient has a normal WBC count. His x-ray shows multiple cavitary lesions which is new compared to his previous x- ray. This is concerning for septic emboli versus tuberculosis. Patient was placed in reverse isolation. I am currently awaiting a callback from Dr. Lockhart, pulmonology. 09/06/18 11:16 Still awaiting callback by pulmonology. Patient's care was discussed with Dr. Deluna who accepted admission. He states he is coming to the emergency room now to evaluate the patient and will pursue further testing on his tuberculosis. Patient was informed of his diagnosis and admission. He is in agreement with the plan. Laboratory 09/06/18 09/06/18 10:01 10:01 WBC 6.1 RBC 3.94 L Hgb 12.6 L Hct 35.4 L MCV 90 MCH 31.9 MCHC 35.5 RDW 13.4 Plt Count 386 Seg Neutrophils % 67.6 Lymphocytes % 20.3 Monocytes % 11.4 Eosinophils % 0.4 Basophils % 0.3 Absolute Neutrophils 4.1 Absolute Lymphocytes 1.2 Absolute Monocytes 0.7 Absolute Eosinophils 0.0 Absolute Basophils 0.0 Sodium 140.0 Potassium 3.0 L* Chloride 102 Carbon Dioxide 27 Anion Gap 11 BUN 11 Creatinine 0.57 Est GFR ( Amer) > 60 Est GFR (Non-Af Amer) > 60 Glucose 111 H Calcium 9.4 Total Bilirubin 0.9 Direct Bilirubin 0.7 H Neonat Total Bilirubin Not Reportable Neonat Direct Bilirubin Not Reportable Neonat Indirect Bili Not Reportable AST 34 ALT 87 H Alkaline Phosphatase 203 H Total Protein 6.6 Albumin 3.7 Chest X-Ray 09/06/18 10:00 IMPRESSION: Multiple cavitary infiltrates worrisome for septic emboli, necrotizing pneumonia, or tuberculosis. Findings called to the emergency doctor as above. - Vital Signs Vital signs: Temp Pulse Resp BP Pulse Ox 97.4 F 75 20 147/91 H 98 09/06/18 09:44 09/06/18 09:44 09/06/18 09:44 09/06/18 09:44 09/06/18 09:44 - Laboratory Result Diagrams: 09/06/18 10:01 09/06/18 10:01 Laboratory results interpreted by me: 09/06/18 09/06/18 10:01 10:01 RBC 3.94 L Hgb 12.6 L Hct 35.4 L Potassium 3.0 L* Glucose 111 H Direct Bilirubin 0.7 H ALT 87 H Alkaline Phosphatase 203 H Discharge - Discharge Clinical Impression: Hypokalemia, Cavitary lesion of lung Pneumonia Qualifiers: Pneumonia type: due to unspecified organism Laterality: right Lung location: unspecified part of lung Qualified Code(s): J18.9 - Pneumonia, unspecified organism Condition: Stable Disposition: ADMITTED INPATIENT Admitting Provider: Hospitalist Unit Admitted: Medical Floor
--- NOTE | 2018-09-06 10:37 | RADIOLOGY REPORT (SQ) ---
"EXAM DESCRIPTION: CHEST 2 VIEWS COMPLETED DATE/TIME: 09/06/2018 10:20 am REASON FOR STUDY: sob, chest pain COMPARISON: Chest films 08/30/2018, 04/06/2017 EXAM PARAMETERS: NUMBER OF VIEWS: two views TECHNIQUE: Digital Frontal and Lateral radiographic views of the chest acquired. RADIATION DOSE: NA LIMITATIONS: none FINDINGS: LUNGS AND PLEURA: Cavitary infiltrates are now present in the right upper lobe, left upper lobe, and both lung bases. Findings are worrisome for septic emboli or necrotizing pneumonia. Tube rculosis could not be excluded. This report was called to Dr. Barillas in the emergency room, 1015 hour s 09/06/2018. No pleural effusions. No pneumothorax. MEDIASTINUM AND HILAR STRUCTURES: No masses or contour abnormalities. HEART AND VASCULAR STRUCTURES: Heart normal size. No evidence for failure. BONES: No acute findings. HARDWARE: None in the chest. OTHER: No other significant finding. IMPRESSION: Multiple cavitary infiltrates worrisome for septic emboli, necrotizing pneumonia, or tub erculosis. Findings called to the emergency doctor as above. TECHNICAL DOCUMENTATION: JOB ID: [id number] [employer] | [employer]- All Rights Reserved Reading location - IP/workstation name: [email or web address]"
[2018-09-06] MEDS ORDERED: POTASSIUM CHLORIDE 10 MEQ CAPSULE.ER PO ONE (10:47)
[2018-09-06] MEDS ORDERED: ONDANSETRON HCL INJ/PF 4 MG/2 ML SDV IV PRN (11:45)
[2018-09-06] MEDS ORDERED: VANCOMYCIN HCL 0 MG in DEXTROSE 5%-WATER 250 ML IV NR (12:00)
[2018-09-06] MEDS ORDERED: CEFEPIME 2 GM/D5W RTU 2 GM/50 ML RTUPB IV SCH (12:30)
[2018-09-06] MEDS ORDERED: TUBERCULIN,PURIF.PROT.DERIV. 5 TU/0.1 ML TEST 1 ML VIAL ID ONE (12:30)
[2018-09-06] MEDS: VANCOMYCIN HCL 1,250 MG in DEXTROSE 5%-WATER 250 ML IV SCH ×2 (13:00→21:42)
[2018-09-06] MEDS: IPRATROPIUM/ALBUTEROL 0.5-2.5 MG/3 ML AMPUL NEB SCH ×3 (13:01→20:07)
--- NOTE | 2018-09-06 13:07 | PDOC H&P ---
History of Present Illness Admission Date/PCP: 09/06/18 11:23 History of Present Illness: MILY VELASCO is a 37 year old black male patient presents with chief complaint of cough and shortness of breath. Patient reports this he has been in apparently good state of health up until 10 days when he started to have cough which is nonproductive associated with shortness of breath. For the above- mentioned complaint he has visited ER about 3 times. His first x-ray shows right upper lobe consolidation at the time of his first presentation and the latest chest x-ray shows cavitation. He has been on doxycycline to no avail. Patient does not have significant medical problem except tobacco dependence. Patient denies any contact with chronically coughing patient. No history of fever, night sweats or significant weight loss. He gave history of incarceration about 20 years ago at [facility] for 45 days. He denies IV drug abuse. Past Surgical History Past Surgical History: Reports: Orthopedic Surgery Social History Smoking Status: Current Every Day Smoker - Advance Directive Resuscitation Status: Full Code Family History Family History: Reviewed & Not Pertinent, Other - does not know family history Parental Family History Reviewed: Yes Children Family History Reviewed: Yes Sibling(s) Family History Reviewed.: Yes Medication/Allergy Allergies/Adverse Reactions: No Known Drug Allergies Allergy (Verified 09/06/18 09:36) Review of Systems Constitutional: PRESENT: as per HPI Ears: PRESENT: as per HPI Cardiovascular: PRESENT: as per HPI Gastrointestinal: PRESENT: as per HPI Musculoskeletal: PRESENT: as per HPI Neurological: PRESENT: as per HPI Psychiatric: PRESENT: as per HPI Physical Exam Vital Signs: Temp Pulse Resp BP Pulse Ox 97.4 F 75 20 147/91 H 98 09/06/18 09:44 09/06/18 09:44 09/06/18 09:44 09/06/18 09:44 09/06/18 09:44 Intake & Output 09/05/18 09/06/18 09/07/18 06:59 06:59 06:59 Intake Total 1000 Balance 1000 Weight 72.5 kg General appearance: PRESENT: no acute distress Head exam: PRESENT: atraumatic, normocephalic Eye exam: PRESENT: conjunctiva pink Neck exam: ABSENT: carotid bruit, JVD, lymphadenopathy, thyromegaly Respiratory exam: PRESENT: crackles, rhonchi Cardiovascular exam: PRESENT: RRR. ABSENT: diastolic murmur, rubs, systolic murmur GI/Abdominal exam: PRESENT: normal bowel sounds, soft. ABSENT: distended, guarding, mass, organolmegaly, rebound, tenderness Neurological exam: PRESENT: alert, awake, oriented to time, oriented to situation Results Laboratory Results: 09/06/18 10:01 09/06/18 10:01 09/06/18 09/06/18 10:01 10:01 WBC 6.1 RBC 3.94 L Hgb 12.6 L Hct 35.4 L MCV 90 MCH 31.9 MCHC 35.5 RDW 13.4 Plt Count 386 Seg Neutrophils % 67.6 Lymphocytes % 20.3 Monocytes % 11.4 Eosinophils % 0.4 Basophils % 0.3 Absolute Neutrophils 4.1 Absolute Lymphocytes 1.2 Absolute Monocytes 0.7 Absolute Eosinophils 0.0 Absolute Basophils 0.0 Sodium 140.0 Potassium 3.0 L* Chloride 102 Carbon Dioxide 27 Anion Gap 11 BUN 11 Creatinine 0.57 Est GFR ( Amer) > 60 Est GFR (Non-Af Amer) > 60 Glucose 111 H Calcium 9.4 Total Bilirubin 0.9 AST 34 ALT 87 H Alkaline Phosphatase 203 H Total Protein 6.6 Albumin 3.7 Impressions: Chest X-Ray 09/06/18 10:00 IMPRESSION: Multiple cavitary infiltrates worrisome for septic emboli, necrotizing pneumonia, or tuberculosis. Findings called to the emergency doctor as above. Assessment & Plan - Diagnosis (1) Cavitary lesion of lung Is this a current diagnosis for this admission?: Yes Plan: The differential for cavitary lesion includes: Cavitary pulmonary TB including nontuberculous mycobacteria, septic emboli and necrotizing pneumonia. Patient is clinically and hemodynamically stable. Pulmonary tuberculosis looks unlikely since the time interval between the consolidation and being cavitated is a 9 days. Tuberculosis has an indolent course. Patient is also too good to have necrotizing pneumonia. I requested ESR, CRP, AFB culture and smear. Patient kept in isolation. Patient has been started on vancomycin and cefepime. I will consult Dr. Jorge Luis Johnson.
--- NOTE | 2018-09-06 14:12 | RADIOLOGY REPORT (SQ) ---
EXAM DESCRIPTION: CTA CHEST COMPLETED DATE/TIME: 09/06/2018 1:54 pm REASON FOR STUDY: cavitary lesions on cxr COMPARISON: Same day chest radiograph TECHNIQUE: CT scan of the chest performed using helical scanning technique with dynamic intravenous contrast injection. Images reviewed with lung, soft tissue and bone windows. Reconstructed coronal and sagittal MPR images reviewed. Additional 3 dimensional post-processing performed to develop Maximal Intensity Projection images (ID P). All images stored on PACS. All CT scanners at this facility use dose modulation, iterative reconstruction, and/or weight based d osing when appropriate to reduce radiation dose to as low as reasonably achievable (ALARA). [facility]: Dose Right [facility]: CareDose [facility]: Dose Right [facility]: Teradose 4D [facility]: [employer] Labs CONTRAST TYPE AND DOSE: contrast/concentration: Isovue 350.00 mg/ml; Total Contrast Delivered: 70.0 ml; Total Saline Delivered: 95.0 ml Contrast bolus optimized for the pulmonary arteries. Not diagnostic for the aorta. RENAL FUNCTION: None required. The patient is less than 50 years old. RADIATION DOSE: CT Rad equipment meets quality standard of care and radiation dose reduction techniq ues were employed. CTDIvol: 14.3 - 16.5 mGy. DLP: 594 mGy-cm. . LIMITATIONS: None. FINDINGS: LUNGS AND PLEURA: There is extensive bilateral somewhat geographic and subpleural ground-g lass pulmonary opacity and numerous cavitary lesions of various size. The largest lesions are cluste red in the right upper lobe (series 3, image 38). AORTA AND GREAT VESSELS: No aneurysm. Contrast bolus not optimized for the aorta. HEART: No pericardial effusion. No significant coronary artery calcifications. PULMONARY ARTERIES: No emboli visualized in the main pulmonary arteries or the segmental branches. HILAR AND MEDIASTINAL STRUCTURES: No identified masses or abnormal nodes. HARDWARE: None in the chest. UPPER ABDOMEN: No significant findings. Limited exam. THYROID AND OTHER SOFT TISSUES: No masses. No adenopathy. BONES: No acute or significant finding. 3D MIPS: Confirm above findings. OTHER: No other significant finding. IMPRESSION: 1. Negative examination for pulmonary embolism. 2. There is extensive bilateral somewhat geographic and subpleural ground-glass pulmonary opacity and numerous cavitary lesions of various size. The largest lesions are clustered in the right upper lob e. Findings are most suggestive of septic embolism although cavitary infection and inflammatory proc esses such as vasculitis are differential considerations. COMMENT: Quality ID # [id number]: Final reports with documentation of one or more dose reduction techniques (e.g., Automated exposure control, adjustment of the mA and/or kV according to patient size, use of iterative reconstruction technique) TECHNICAL DOCUMENTATION: JOB ID: [id number] [employer]- All Rights Reserved Reading location - IP/workstation name: [email or web address]
--- NOTE | 2018-09-06 14:17 | Progress Note ---
Provider Note Provider Note: ID Consult Note Asked to provide input regarding pt Avtar Verdugo by Dr Fernandes who is admitting pt. Pt not seen or examined. Reviewed chart, including VS, imaging reports, H&P and ED provider notes, and CBC and CMP, which are available. No cultures available presently. Pt is a 37 year old man with tobacco use being admitted for cavitary lung lesions on CXR, nonproductive cough and SOB that have been ongoing x 10 days despite empiric doxycycline. Pt first presented to ED on 08/30/18 one week ago with c/o cough, SOB, body aches, N&V. Rapid influenza antigen test was negative, and CXR was read as showing hazy opacification in RUL most compatible with pneumonia. Pt returned on 09/06 with "worsening pneumonia, shortness of breath, chest pain", which was right-sided. Pt denied night sweats, IVDU, admitted to remote hx of having been incarcerated. Pt found to be afebrile, not tachycardic, with O2 sat 98, RR 20. On exam he had no murmur and no skin lesions, or peripheral edema described. Adventitious lung sounds crackles and rhonchi were noted. He did not have accessory muscle use or other evidence of respiratory distress. WBC count was 6 with unremarkable differential, hgb 12.6 normocytic, wnl plt count. Abnormalities on CMP included some hypokalemia, elevated ALT, elevated alk phos. In the ED, pt was placed in isolation for suspicion that pt may have TB. Vancomycin and cefepime have been ordered and are being administered. Blood culture was ordered but has not been received by the lab. AFB culture has been ordered along with sputum culture. Impression/Recommendations Cavitary lung lesions - Agree, considering hx of incarceration and upper lobe involvement, PPD might be helpful but is not a substitute for AFB sputum smear and culture. Discontinuation of airborne precautions should be made in consultation with [facility] control practitioners. Agree with attempting to obtain AFB sputum smear or culture. - Respiratory therapy may be able to induce sputum for routine bacterial and AFB cultures with hypertonic saline nebs, but failing that bronchoscopy and BAL may be needed, as pt has been noted to have a nonproductive cough. - Consider CT scan of the chest to better define lung lesions - Consider HIV test, as it may help influence differential considerations including active TB risk, and is recommended as routine screening in all adults at some point in adults 15-65. Agree that there is no role for starting empiric TB treatment. - Obtaining blood cultures prior to antibiotics is recommended, and hopefully has been done to help establish a microbiological diagnosis, particularly as septic pulmonary emboli are being considered as well. There is a growing rate of IVDU in younger persons. Examining skin carefully for track carney may be helpful. - Another possibility is a necrotizing bacterial pneumonia superimposed on what had initially been a viral process, such as a post-influenza pneumonia due to Staph aureus. Although influenza antigen was negative previously when pt presented to ED, rapid antigen test has some limitations in sensitivity and does not rule out this possibility. Again, obtaining sputum culture is needed, and since cough has been described as dry, assistance in obtaining culture is likely going to be needed from either respiratory therapy or a roller cleaner. Jorge Luis Johnson MD [facility], [facility] Infectious Diseases pager [phone]
[2018-09-06] MEDS: ENOXAPARIN SODIUM INJ 40 MG/0.4 ML DISP.SYRIN SUBCUT SCH (14:44)
[2018-09-06] MEDS: ACETAMINOPHEN 325 MG TABLET PO PRN (17:41)
[2018-09-06] MEDS: LANSOPRAZOLE 30 MG TAB.RAP.DR PO SCH (17:42)
[2018-09-07] MEDS: IPRATROPIUM/ALBUTEROL 0.5-2.5 MG/3 ML AMPUL NEB SCH ×6 (00:29→21:01)
[2018-09-07] MEDS: CEFEPIME 2 GM/D5W RTU 2 GM/50 ML RTUPB IV SCH ×2 (05:41→17:40)
[2018-09-07] MEDS: LANSOPRAZOLE 30 MG TAB.RAP.DR PO SCH ×2 (05:42→17:40)
[2018-09-07] MEDS: ACETAMINOPHEN 325 MG TABLET PO PRN ×4 (05:53→21:21)
[2018-09-07 06:04] LABS: ABSOLUTE LYMPHOCYTES (AUTO) 1.4 10^3/uL (0.5-4.7); ABSOLUTE MONOCYTES (AUTO) 0.8 10^3/uL (0.1-1.4); ABSOLUTE NEUT (AUTO) 2.7 10^3/uL (1.7-8.2); BASOPHILS % (AUTO) 0.3 % (0-2); EOSINOPHILS % (AUTO) 0.4 % (0-6); HEMATOCRIT 32.4 % (37.9-51.0); HEMOGLOBIN 11.3 g/dL (13.5-17.0); LYMPHOCYTES % (AUTO) 28.7 % (13-45); MEAN CORPUSCULAR HEMOGLOBIN 31.7 pg (27.0-33.4); MEAN CORPUSCULAR HGB CONC 34.9 g/dL (32.0-36.0); MEAN CORPUSCULAR VOLUME 91 fl (80-97); MONOCYTES % (AUTO) 15.6 % (3-13); PLATELET COUNT 360 10^3/uL (150-450); RED BLOOD COUNT 3.57 10^6/uL (4.35-5.55); RED CELL DISTRIBUTION WIDTH 13.3 % (11.5-14.0); TOTAL CELLS COUNTED % (AUTO) 100 %; WHITE BLOOD COUNT 4.9 10^3/uL (4.0-10.5)
[2018-09-07] MEDS: VANCOMYCIN HCL 1,250 MG in DEXTROSE 5%-WATER 250 ML IV SCH ×2 (06:23→13:51)
[2018-09-07 06:31] LABS: ANION GAP 10 (5-19); BLOOD UREA NITROGEN 8 mg/dL (7-20); C-REACTIVE PROTEIN 84.1 mg/L (<10.0); CALCIUM 8.5 mg/dL (8.4-10.2); CARBON DIOXIDE 25 mmol/L (22-30); CHLORIDE 107 mmol/L (98-107); GLUCOSE 98 mg/dL (75-110); POTASSIUM 3.2 mmol/L (3.6-5.0); SODIUM 141.6 mmol/L (137-145)
[2018-09-07 06:42] LABS: ERYTHROCYTE SEDIMENTATION RATE 92 mm/hr (0-15)
[2018-09-07] MEDS: ENOXAPARIN SODIUM INJ 40 MG/0.4 ML DISP.SYRIN SUBCUT SCH (09:38)
[2018-09-07] MEDS ORDERED: POTASSIUM CHLORIDE 10 MEQ CAPSULE.ER PO ONE (10:26)
[2018-09-07 11:20] LABS: URINE AMPHETAMINES SCREEN NEGATIVE; URINE BARBITURATES SCREEN NEGATIVE; URINE BENZODIAZEPINES SCREEN NEGATIVE; URINE COCAINE SCREEN NEGATIVE; URINE METHADONE SCREEN NEGATIVE; URINE PHENCYCLIDINE SCREEN NEGATIVE
[2018-09-07 11:22] LABS: URINE MARIJUANA (THC) SCREEN UNCONFIRMED POSITIVE
[2018-09-07 14:22] LABS: VANCOMYCIN,TROUGH 10.2 ug/mL (5.0-20.0)
--- NOTE | 2018-09-07 15:25 | PDOC PROGRESS REPORT ---
Subjective Progress Note for:: 09/07/18 Subjective:: This is 37 years old male patient presented with 10-day history of weakness, cough and shortness of breath. For the above-mentioned complaint patient has had several ER visits. We will had been treated with doxycycline to no avail. His chest x-ray yesterday reported as right upper lobe cavitary lesion. He is CTA revealed bilateral numerous cavitary lesions. Patient is being worked up for tuberculosis and nontuberculous mycobacterial infection. Patient kept on isolation. The CTA finding is not compatible with tuberculosis. I considered the possibility of septic emboli or necrotizing pneumonia. Patient adamantly deny IV drug abuse. His urine drug screen is positive for marijuana. Echo requested for possible vegetation. Currently patient has been getting cefepime and Vanco. Dr. Jorge Luis Johnson consulted and appreciate her input. Reason For Visit: RT CAVITORY LESION Physical Exam Vital Signs: Temp Pulse Resp BP Pulse Ox 99.4 F 92 20 163/95 H 94 09/07/18 12:11 09/07/18 12:11 09/07/18 12:11 09/07/18 12:11 09/07/18 12:11 Intake & Output 09/06/18 09/07/18 09/08/18 06:59 06:59 06:59 Intake Total 2100 587 Balance 2100 587 Weight 74.3 kg General appearance: PRESENT: no acute distress, well-developed, well-nourished Head exam: PRESENT: atraumatic, normocephalic Eye exam: PRESENT: conjunctiva pink, EOMI, PERRLA. ABSENT: scleral icterus Ear exam: PRESENT: normal external ear exam Mouth exam: PRESENT: moist, tongue midline Neck exam: ABSENT: carotid bruit, JVD, lymphadenopathy, thyromegaly Respiratory exam: PRESENT: clear to auscultation nga. ABSENT: rales, rhonchi, wheezes Cardiovascular exam: PRESENT: RRR. ABSENT: diastolic murmur, rubs, systolic murmur Pulses: PRESENT: normal dorsalis pedis pul Vascular exam: PRESENT: normal capillary refill GI/Abdominal exam: PRESENT: normal bowel sounds, soft. ABSENT: distended, guarding, mass, organolmegaly, rebound, tenderness Rectal exam: PRESENT: deferred Extremities exam: PRESENT: full ROM. ABSENT: calf tenderness, clubbing, pedal edema Neurological exam: PRESENT: alert, awake, oriented to person, oriented to place, oriented to time, oriented to situation, CN II-XII grossly intact. ABSENT: motor sensory deficit Psychiatric exam: PRESENT: appropriate affect, normal mood. ABSENT: homicidal ideation, suicidal ideation Skin exam: PRESENT: dry, intact, warm. ABSENT: cyanosis, rash Results Laboratory Results: 09/07/18 05:36 09/07/18 05:36 09/07/18 09/07/18 05:36 05:36 WBC 4.9 RBC 3.57 L Hgb 11.3 L Hct 32.4 L MCV 91 MCH 31.7 MCHC 34.9 RDW 13.3 Plt Count 360 Seg Neutrophils % 55.0 Lymphocytes % 28.7 Monocytes % 15.6 H Eosinophils % 0.4 Basophils % 0.3 Absolute Neutrophils 2.7 Absolute Lymphocytes 1.4 Absolute Monocytes 0.8 Absolute Eosinophils 0.0 Absolute Basophils 0.0 Sodium 141.6 Potassium 3.2 L Chloride 107 Carbon Dioxide 25 Anion Gap 10 BUN 8 Creatinine 0.58 Est GFR ( Amer) > 60 Est GFR (Non-Af Amer) > 60 Glucose 98 Calcium 8.5 C-Reactive Protein 84.1 H Impressions: Chest X-Ray 09/06/18 10:00 IMPRESSION: Multiple cavitary infiltrates worrisome for septic emboli, necrotizing pneumonia, or tuberculosis. Findings called to the emergency doctor as above. Chest/Abdomen CTA 09/06/18 10:55 IMPRESSION: 1. Negative examination for pulmonary embolism. 2. There is extensive bilateral somewhat geographic and subpleural ground-glass pulmonary opacity and numerous cavitary lesions of various size. The largest lesions are clustered in the right upper lobe. Findings are most suggestive of septic embolism although cavitary infection and inflammatory processes such as vasculitis are differential considerations. Assessment & Plan - Diagnosis (1) Cavitary lesion of lung Is this a current diagnosis for this admission?: Yes Plan: Continue cefepime and vancomycin. Follow-up AFB result. (2) Hypokalemia Is this a current diagnosis for this admission?: Yes Plan: Improving (3) Tobacco dependence Is this a current diagnosis for this admission?: Yes Plan: Patient counseled and encouraged to quit smoking.
[2018-09-07] MEDS ORDERED: FUROSEMIDE INJ/PF 20 MG/2 ML SDV IV SCH (15:30)
[2018-09-07] MEDS: VANCOMYCIN HCL 1,500 MG in DEXTROSE 5%-WATER 250 ML IV SCH (21:12)
--- NOTE | 2018-09-07 21:25 | XCELERA REPORT ---
[address] [address] Transthoracic Echocardiogram Report Name: MILY VELASCO Age: 37 yrs Gender: Male : 1980 Patient Status: Inpatient Patient Location: [address] [place] [address] Study Date: 09/07/2018 02:31 PM Height: 74 in Weight: 163 lb BSA: 2.0 m2 Procedure: A two-dimensional transthoracic echocardiogram with color flow and Doppler was performed. Study Quality: Good. Reason For Study: infective endocarditis History: infective endocarditis. Ordering Physician: PAPA BARKLEY Performed By: Sebastian Rodriguez Interpretation Summary The left ventricle is normal in size. There is normal left ventricular wall thickness. LV EF is > than 65%.% Left ventricular systolic function is normal. Doppler measurements suggest normal left ventricular diastolic function The left ventricular wall motion is normal. There is no thrombus. There is no ventricular septal defect visualized. The right ventricle is normal in size and function. The right atrium is normal. The left atrial size is normal. The interatrial septum is intact with no evidence for an atrial septal defect. There is no evidence of mitral valve prolapse. Cannot entirely exclude a small vegetation in tip of the anterior mitral valve leaflet.Defenitely need LEAH to clarify this. There is no mitral valve stenosis. There is a mild amount of mitral regurgitation There is no aortic valvular vegetation. There is no aortic valve stenosis There is no LVOT obstruction. No aortic regurgitation is present. There is no tricuspid valve vegetation. There is no tricuspid stenosis. There is a mild amount of tricuspid regurgitation There is moderate pulmonary hypertension by echo RVSP is 48 to 53 mm of Hg , with RA mean of 5 to 10. There is no pulmonic valvular stenosis. There is a trace amount of pulmonic regurgitation The aortic root is normal size. The inferior vena cava appeared normal and decreased > 50% with respiration (RAP 5-10 mmHg) There is no pericardial effusion. MMode/2D Measurements & Calculations RVDd: 3.1 cm LVIDd: 5.4 cm FS: 41.1 % Ao root diam: 4.2 cm IVSd: 0.60 cm LVIDs: 3.2 cm EDV(Teich): 139.3 ml Ao root area: 13.8 cm2 LVPWd: 0.77 cm ESV(Teich): 39.8 ml LA dimension: 3.4 cm EF(Teich): 71.4 % LVOT diam: 2.5 cm LVOT area: 4.7 cm2 Doppler Measurements & Calculations MV E max santhosh: MV P1/2t max santhosh: Ao V2 max: LV V1 max P.3 cm/sec 91.8 cm/sec 130.9 cm/sec 5.5 mmHg MV A max santhosh: MV P1/2t: 73.4 msec Ao max PG: LV V1 max: 69.6 cm/sec MVA(P1/2t): 3.0 cm2 6.9 mmHg 117.0 cm/sec MV E/A: 1.3 MV dec slope: TESHA(V,D): 4.2 cm2 366.5 cm/sec2 MV dec time: 0.23 sec PA V2 max: PI end-d santhosh: TR max santhosh: MV P1/2t-pr_phl: 85.3 cm/sec 129.0 cm/sec 328.8 cm/sec 73.4 msec PA max PG: TR max P.9 mmHg 43.2 mmHg Left Ventricle The left ventricle is normal in size. There is normal left ventricular wall thickness. LV EF is > than 65%.%. Left ventricular systolic function is normal. Doppler measurements suggest normal left ventricular diastolic function. The left ventricular wall motion is normal. There is no thrombus. There is no ventricular septal defect visualized. Right Ventricle The right ventricle is normal in size and function. Atria The right atrium is normal. The left atrial size is normal. The interatrial septum is intact with no evidence for an atrial septal defect. Mitral Valve There is no evidence of mitral valve prolapse. Cannot entirely exclude a small vegetation in tip of the anterior mitral valve leaflet.Defenitely need LEAH to clarify this. There is no mitral valve stenosis. There is a mild amount of mitral regurgitation. Aortic Valve There is no aortic valvular vegetation. There is no aortic valve stenosis. There is no LVOT obstruction. No aortic regurgitation is present. Tricuspid Valve There is no tricuspid valve vegetation. There is no tricuspid stenosis. There is a mild amount of tricuspid regurgitation. There is moderate pulmonary hypertension by echo. RVSP is 48 to 53 mm of Hg , with RA mean of 5 to 10. Pulmonic Valve There is no pulmonic valvular stenosis. There is a trace amount of pulmonic regurgitation. Great Vessels The aortic root is normal size. The inferior vena cava appeared normal and decreased > 50% with respiration (RAP 5-10 mmHg). Effusions There is no pericardial effusion. : PAPA BARKLEY Lakshmi
[2018-09-08] MEDS: IPRATROPIUM/ALBUTEROL 0.5-2.5 MG/3 ML AMPUL NEB SCH ×5 (00:40→17:11)
[2018-09-08] MEDS: ACETAMINOPHEN 325 MG TABLET PO PRN ×4 (03:16→20:55)
[2018-09-08] MEDS: LANSOPRAZOLE 30 MG TAB.RAP.DR PO SCH ×2 (05:28→17:36)
[2018-09-08] MEDS: CEFEPIME 2 GM/D5W RTU 2 GM/50 ML RTUPB IV SCH ×2 (05:28→17:36)
[2018-09-08 05:50] LABS: ABSOLUTE EOSINOPHILS # (AUTO) 0.1 10^3/uL (0.0-0.6); ABSOLUTE LYMPHOCYTES (AUTO) 1.1 10^3/uL (0.5-4.7); ABSOLUTE MONOCYTES (AUTO) 0.8 10^3/uL (0.1-1.4); ABSOLUTE NEUT (AUTO) 3.9 10^3/uL (1.7-8.2); BASOPHILS % (AUTO) 0.2 % (0-2); EOSINOPHILS % (AUTO) 0.9 % (0-6); HEMATOCRIT 31.8 % (37.9-51.0); HEMOGLOBIN 11.3 g/dL (13.5-17.0); LYMPHOCYTES % (AUTO) 18.7 % (13-45); MEAN CORPUSCULAR HEMOGLOBIN 31.9 pg (27.0-33.4); MEAN CORPUSCULAR HGB CONC 35.5 g/dL (32.0-36.0); MEAN CORPUSCULAR VOLUME 90 fl (80-97); MONOCYTES % (AUTO) 13.2 % (3-13); PLATELET COUNT 397 10^3/uL (150-450); RED BLOOD COUNT 3.53 10^6/uL (4.35-5.55); RED CELL DISTRIBUTION WIDTH 13.4 % (11.5-14.0); TOTAL CELLS COUNTED % (AUTO) 100 %; WHITE BLOOD COUNT 5.8 10^3/uL (4.0-10.5)
[2018-09-08 06:12] LABS: ANION GAP 7 (5-19); BLOOD UREA NITROGEN 5 mg/dL (7-20); CALCIUM 8.7 mg/dL (8.4-10.2); CARBON DIOXIDE 26 mmol/L (22-30); CHLORIDE 107 mmol/L (98-107); GLUCOSE 100 mg/dL (75-110); POTASSIUM 3.5 mmol/L (3.6-5.0); SODIUM 139.6 mmol/L (137-145)
[2018-09-08] MEDS: VANCOMYCIN HCL 1,500 MG in DEXTROSE 5%-WATER 250 ML IV SCH ×3 (06:13→17:37)
[2018-09-08] MEDS: ALBUTEROL SULFATE 0.083% NEB 2.5 MG/3 ML AMPUL NEB PRN ×4 (08:32→19:20)
[2018-09-08] MEDS: ENOXAPARIN SODIUM INJ 40 MG/0.4 ML DISP.SYRIN SUBCUT SCH (11:16)
--- NOTE | 2018-09-08 18:11 | Progress Note ---
Provider Note Provider Note: ID Consult - Brief f/u note Interval results - Sputum obtained for AFB smear is negative x 3, and CT imaging of chest is most c/w septic pulmonary emboli. Sputum culture has MSSA and E coli. Staph aureus is the most common bacteria isolated from blood cultures that are positive in the setting of septic pulmonary emboli. GPCs in 1 out of 4 bottles are currently reported. It is unknown at present whether this blood isolate is the same MSSA or a different organism. Impression/Recommendations - If still on airborne precautions, contact Infection Control at [place] to be certain of hospital policies, but I suspect there is not a need to continue it at this point. - TTE did not show TR or TV vegetation to explain the CT scan findings. Source of emboli to lungs could be from a right sided valvular lesion that was not visualized with TTE. Alternatively, the pulmonary emboli could have originated from septic jugular vein thrombophlebitis or, perhaps less likely, another distant pyogenic process (e.g. liver abscess). - Cefepime can be discontinued. Significance of E coli from the sputum is dubious. Continue vancomycin, await identification of blood isolate. Jorge Luis Johnson MD [facility] Infectious Diseases
[2018-09-08] MEDS ORDERED: POTASSIUM CHLORIDE 10 MEQ CAPSULE.ER PO ONE (19:30)
--- NOTE | 2018-09-08 19:54 | PDOC PROGRESS REPORT ---
Subjective Progress Note for:: 09/08/18 Subjective:: saw patient today - he feels ok- states he's getting anxious being in here. states his back hurts. denies chest pain, Sob, abdominal pain, n/v or dizziness. states his breathing is somewhat better today. still does have some FROST Reason For Visit: RT CAVITORY LESION Physical Exam Vital Signs: Temp Pulse Resp BP Pulse Ox 97.7 F 89 16 164/106 H 97 09/08/18 15:41 09/08/18 14:00 09/08/18 13:25 09/08/18 15:41 09/08/18 13:25 Intake & Output 09/07/18 09/08/18 09/09/18 06:59 06:59 06:59 Intake Total 2100 2387 1250 Balance 2100 2387 1250 Weight 163 lb 12.855 oz 163 lb 12.855 oz General appearance: PRESENT: no acute distress Head exam: PRESENT: atraumatic, normocephalic Eye exam: PRESENT: EOMI. ABSENT: conjunctival injection, scleral icterus Ear exam: PRESENT: normal external ear exam Mouth exam: PRESENT: tongue midline Neck exam: ABSENT: tracheal deviation Respiratory exam: PRESENT: decreased breath sounds - bilaterally - poor inspiratory effort at times, symmetrical Cardiovascular exam: PRESENT: +S1, +S2 Pulses: PRESENT: +2 pedal pulses bilateral GI/Abdominal exam: PRESENT: normal bowel sounds, soft. ABSENT: tenderness Extremities exam: ABSENT: joint swelling, pedal edema Neurological exam: PRESENT: alert, awake, oriented to person, oriented to place, oriented to time, oriented to situation, CN II-XII grossly intact Skin exam: PRESENT: dry, warm Results Laboratory Results: 09/08/18 05:25 09/08/18 05:25 09/08/18 09/08/18 05:25 05:25 WBC 5.8 RBC 3.53 L Hgb 11.3 L Hct 31.8 L MCV 90 MCH 31.9 MCHC 35.5 RDW 13.4 Plt Count 397 Seg Neutrophils % 67.0 Lymphocytes % 18.7 Monocytes % 13.2 H Eosinophils % 0.9 Basophils % 0.2 Absolute Neutrophils 3.9 Absolute Lymphocytes 1.1 Absolute Monocytes 0.8 Absolute Eosinophils 0.1 Absolute Basophils 0.0 Sodium 139.6 Potassium 3.5 L Chloride 107 Carbon Dioxide 26 Anion Gap 7 BUN 5 L Creatinine 0.52 Est GFR ( Amer) > 60 Est GFR (Non-Af Amer) > 60 Glucose 100 Calcium 8.7 09/06/18 13:20 Sputum Sputum Culture - Final Escherichia Coli Staphylococcus Aureus Normal Heather 09/06/18 13:20 Sputum AFB Smear Concentration - Final 09/06/18 13:20 Sputum Acid Fast Bacilli Smear - Final Impressions: Chest X-Ray 09/06/18 10:00 IMPRESSION: Multiple cavitary infiltrates worrisome for septic emboli, necrotizing pneumonia, or tuberculosis. Findings called to the emergency doctor as above. Chest/Abdomen CTA 09/06/18 10:55 IMPRESSION: 1. Negative examination for pulmonary embolism. 2. There is extensive bilateral somewhat geographic and subpleural ground-glass pulmonary opacity and numerous cavitary lesions of various size. The largest lesions are clustered in the right upper lobe. Findings are most suggestive of septic embolism although cavitary infection and inflammatory processes such as vasculitis are differential considerations. Assessment & Plan - Diagnosis (1) Septic pulmonary embolism Is this a current diagnosis for this admission?: Yes (2) Tobacco dependence Is this a current diagnosis for this admission?: Yes (3) Bacteremia Is this a current diagnosis for this admission?: Yes - Plan Summary Plan Summary: Septic pulmonary emboli-assumed care patient today. Spoke with him today and he states his breathing is somewhat better but still gets some dyspnea on exertion. I reviewed Dr. Johnson infectious disease note-I greatly appreciate her input and recommendations regarding this patient. As per ID recommendation I will continue with vancomycin and I have DC'd cefepime. Given his history and recent echo there is concern for vegetation and hence it is recommended that we get a LEAH. I have also consulted Dr. Lockhart today since patient has a questionable cavitary lesion and septic emboli. Dr. Lockhart also saw the patient and recommends LEAH to evaluate for vegetation in his valves. Today I spoken with our nurse occupational health nurse supervisor and she has contacted [facility] and [facility] regarding a procedure where patient can go and come back to us. Unfortunately [facility] does not have any openings for this procedure. Fortunately [facility] is happy to accommodate this patient's LEAH procedure but he will not get done until 09/13/18. Bacteremia-blood culture is not growing gram-positive cocci and only in the preliminary stage. Awaiting final culture results. He is Gram stains came back positive for E. coli and MSSA. Tobacco abuse-encourage patient to stop smoking.
[2018-09-09] MEDS: IPRATROPIUM/ALBUTEROL 0.5-2.5 MG/3 ML AMPUL NEB SCH ×6 (00:05→17:03)
[2018-09-09] MEDS: ALBUTEROL SULFATE 0.083% NEB 2.5 MG/3 ML AMPUL NEB PRN ×3 (00:42→17:39)
[2018-09-09] MEDS: ACETAMINOPHEN 325 MG TABLET PO PRN ×2 (00:57→20:13)
[2018-09-09] MEDS: VANCOMYCIN HCL 1,500 MG in DEXTROSE 5%-WATER 250 ML IV SCH ×3 (02:05→18:09)
[2018-09-09] MEDS: LANSOPRAZOLE 30 MG TAB.RAP.DR PO SCH ×2 (05:36→18:10)
[2018-09-09 06:22] LABS: ANION GAP 8 (5-19); BLOOD UREA NITROGEN 7 mg/dL (7-20); CALCIUM 8.6 mg/dL (8.4-10.2); CARBON DIOXIDE 26 mmol/L (22-30); CHLORIDE 106 mmol/L (98-107); GLUCOSE 93 mg/dL (75-110); POTASSIUM 3.9 mmol/L (3.6-5.0); SODIUM 139.6 mmol/L (137-145)
[2018-09-09 10:22] LABS: VANCOMYCIN,TROUGH 14.6 ug/mL (5.0-20.0)
[2018-09-09] MEDS: ENOXAPARIN SODIUM INJ 40 MG/0.4 ML DISP.SYRIN SUBCUT SCH (10:43)
[2018-09-09 12:37] LABS: ANTICHROMATIN AB <0.2 AI (0.0-0.9); CENTROMERE B AB <0.2 AI (0.0-0.9); JO-1 ANTIBODY (ANACOMP) <0.2 AI (0.0-0.9); SJOGREN'S ANTI-SS-B AB <0.2 AI (0.0-0.9); SJOGREN'S SS-A ANTIBODY <0.2 AI (0.0-0.9)
--- NOTE | 2018-09-09 15:33 | PDOC PROGRESS REPORT ---
Subjective Progress Note for:: 09/09/18 Subjective:: saw patient today- she has no complaints but still has some SOB with exertion. spoke to him about plan for LEAH at [facility] on Tuesday- he's agreeable Reason For Visit: RT CAVITORY LESION Physical Exam Vital Signs: Temp Pulse Resp BP Pulse Ox 98.6 F 79 16 153/104 H 100 09/09/18 07:43 09/09/18 12:06 09/09/18 12:06 09/09/18 07:43 09/09/18 12:06 Intake & Output 09/08/18 09/09/18 09/10/18 06:59 06:59 06:59 Intake Total 2387 2600 Balance 2387 2600 Weight 163 lb 12.855 oz 167 lb 1.766 oz General appearance: PRESENT: no acute distress Head exam: PRESENT: atraumatic, normocephalic Eye exam: PRESENT: EOMI. ABSENT: conjunctival injection, scleral icterus Ear exam: PRESENT: normal external ear exam Mouth exam: PRESENT: tongue midline Teeth exam: PRESENT: poor dentation Neck exam: ABSENT: tracheal deviation Respiratory exam: PRESENT: decreased breath sounds - bilaterally- mostly the bases- otherwise CTA, symmetrical Cardiovascular exam: PRESENT: +S1, +S2 Pulses: PRESENT: +2 pedal pulses bilateral GI/Abdominal exam: PRESENT: normal bowel sounds, soft. ABSENT: tenderness Extremities exam: ABSENT: pedal edema Neurological exam: PRESENT: alert, awake, oriented to person, oriented to place, oriented to time, oriented to situation, CN II-XII grossly intact Skin exam: PRESENT: dry, warm, other - extensive tattoos in arms and other parts of body Results Laboratory Results: 09/08/18 05:25 09/09/18 09:39 09/09/18 09/09/18 05:09 09:39 Sodium 139.6 Potassium 3.9 Chloride 106 Carbon Dioxide 26 Anion Gap 8 BUN 7 Creatinine 0.53 0.56 Est GFR ( Amer) > 60 > 60 Est GFR (Non-Af Amer) > 60 > 60 Glucose 93 Calcium 8.6 09/06/18 13:20 Sputum Sputum Culture - Final Escherichia Coli Staphylococcus Aureus Normal Heather 09/06/18 13:20 Sputum AFB Smear Concentration - Final 09/06/18 13:20 Sputum Acid Fast Bacilli Smear - Final Impressions: Chest X-Ray 09/06/18 10:00 IMPRESSION: Multiple cavitary infiltrates worrisome for septic emboli, necrotizing pneumonia, or tuberculosis. Findings called to the emergency doctor as above. Chest/Abdomen CTA 09/06/18 10:55 IMPRESSION: 1. Negative examination for pulmonary embolism. 2. There is extensive bilateral somewhat geographic and subpleural ground-glass pulmonary opacity and numerous cavitary lesions of various size. The largest lesions are clustered in the right upper lobe. Findings are most suggestive of septic embolism although cavitary infection and inflammatory processes such as vasculitis are differential considerations. Assessment & Plan - Diagnosis (1) Septic pulmonary embolism Is this a current diagnosis for this admission?: Yes (2) Tobacco dependence Is this a current diagnosis for this admission?: Yes (3) Bacteremia Is this a current diagnosis for this admission?: Yes - Plan Summary Plan Summary: Septic pulmonary emboli-continue with vancomycin. I appreciate ID consult. I have DC'd his cefepime as recommended. I have also consulted pulmonology and they are on board. I had a long discussion with patient about use of IV drugs. He states that he did use heroin IV when he was 13 years old but none since t hat. He is very persistent that he does not use any IV drugs or not has used in the last 10 years. who is at bedside does admit that he uses needles at home to make his own tattoos on his arms. Although he does say that he has not had a tattoo in the last 5 years. He does admit to having night sweats at night which was concerning for TB. At this time the plan is to send [facility] to [facility] and then he will come back but unfortunately this will not get done until 09/13/18. This was arranged by the nursing nursery supervisor in the hospital. I appreciate her help. He remains on Lovenox 40 mg subcu for DVT prophylaxis. Bacteremia-blood culture is not growing gram-positive cocci and only in the preliminary stage-final results still pending. He's Gram stains came back positive for E. coli and MSSA. Tobacco abuse-encourage patient to stop smoking.
[2018-09-09 18:05] LABS: DNA DOUBLE STRAND ANTIBODY ANA <1 IU/mL (0-9)
[2018-09-10] MEDS: VANCOMYCIN HCL 1,500 MG in DEXTROSE 5%-WATER 250 ML IV SCH ×3 (01:19→17:40)
[2018-09-10] MEDS: LANSOPRAZOLE 30 MG TAB.RAP.DR PO SCH ×2 (05:59→17:40)
[2018-09-10] MEDS: ALBUTEROL SULFATE 0.083% NEB 2.5 MG/3 ML AMPUL NEB PRN ×3 (09:23→18:39)
[2018-09-10] MEDS: ENOXAPARIN SODIUM INJ 40 MG/0.4 ML DISP.SYRIN SUBCUT SCH (11:09)
[2018-09-10] MEDS: ACETAMINOPHEN 325 MG TABLET PO PRN (11:45)
--- NOTE | 2018-09-10 12:54 | PDOC PROGRESS REPORT ---
Subjective Progress Note for:: 09/10/18 Subjective:: nothing to report overnight. he has no new complaints. doing well. states he feels better because he got to take a shower Reason For Visit: RT CAVITORY LESION Physical Exam Vital Signs: Temp Pulse Resp BP Pulse Ox 99.2 F 82 16 151/92 H 96 09/10/18 06:28 09/10/18 09:23 09/10/18 09:23 09/10/18 06:28 09/10/18 09:23 Intake & Output 09/09/18 09/10/18 09/11/18 06:59 06:59 06:59 Intake Total 2600 868 Balance 2600 868 Weight 167 lb 1.766 oz 166 lb 7.184 oz General appearance: PRESENT: no acute distress Head exam: PRESENT: atraumatic, normocephalic Eye exam: PRESENT: EOMI. ABSENT: conjunctival injection, scleral icterus Mouth exam: PRESENT: tongue midline Neck exam: ABSENT: tracheal deviation Respiratory exam: PRESENT: clear to auscultation nga, symmetrical Cardiovascular exam: PRESENT: +S1, +S2 Pulses: PRESENT: +2 pedal pulses bilateral GI/Abdominal exam: PRESENT: normal bowel sounds, soft. ABSENT: tenderness Extremities exam: ABSENT: pedal edema Neurological exam: PRESENT: alert, awake, oriented to person, oriented to place, oriented to time, CN II-XII grossly intact Skin exam: PRESENT: dry, warm, other - he has tattoos in arms, legs, chest, and back Results Laboratory Results: 09/08/18 05:25 09/09/18 09:39 Impressions: Chest X-Ray 09/06/18 10:00 IMPRESSION: Multiple cavitary infiltrates worrisome for septic emboli, necrotizing pneumonia, or tuberculosis. Findings called to the emergency doctor as above. Chest/Abdomen CTA 09/06/18 10:55 IMPRESSION: 1. Negative examination for pulmonary embolism. 2. There is extensive bilateral somewhat geographic and subpleural ground-glass pulmonary opacity and numerous cavitary lesions of various size. The largest lesions are clustered in the right upper lobe. Findings are most suggestive of septic embolism although cavitary infection and inflammatory processes such as vasculitis are differential considerations. Assessment & Plan - Diagnosis (1) Septic pulmonary embolism Is this a current diagnosis for this admission?: Yes (2) Tobacco dependence Is this a current diagnosis for this admission?: Yes (3) Bacteremia Is this a current diagnosis for this admission?: Yes - Plan Summary Plan Summary: Septic pulmonary emboli-continue with vancomycin. I appreciate ID consult. I have DC'd his cefepime as recommended. I have also consulted pulmonology and they are on board. I had a long discussion with patient about use of IV drugs. 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 He is very persistent that he does not use any IV drugs or not has used in the last 10 years. who is at bedside does admit that he uses needles at home to make his own tattoos on his arms. Although he does say that he has not had a tattoo in the last 5 years. At this time the plan is to send him to [facility] for a LEAH and then he will come back but unfortunately this will not get done until 09/13/18. This was arranged by the nursing supervisor communications and signals in the hospital. I appreciate her help. He remains on Lovenox 40 mg subcu for DVT prophylaxis. Bacteremia-blood culture is not growing gram-positive cocci and only in the preliminary stage-final results still pending. He's Gram stains came back positive for E. coli and MSSA. Tobacco abuse-encourage patient to stop smoking. nothing new overnight. no new complaints
[2018-09-11] MEDS ORDERED: OXYCODONE-ACETAMINOPHEN 5-325 MG TABLET PO ONE (00:30)
[2018-09-11] MEDS ORDERED: OXYCODONE HCL IR 5 MG TABLET PO ONE (00:30)
[2018-09-11] MEDS: VANCOMYCIN HCL 1,500 MG in DEXTROSE 5%-WATER 250 ML IV SCH ×3 (04:25→17:36)
[2018-09-11] MEDS: LANSOPRAZOLE 30 MG TAB.RAP.DR PO SCH ×2 (06:17→17:36)
[2018-09-11] MEDS: ACETAMINOPHEN 325 MG TABLET PO PRN (06:47)
[2018-09-11] MEDS ORDERED: IBUPROFEN 600 MG TABLET PO ONE (06:56)
[2018-09-11] MEDS: ALBUTEROL SULFATE 0.083% NEB 2.5 MG/3 ML AMPUL NEB PRN ×2 (09:04→16:25)
[2018-09-11] MEDS: ENOXAPARIN SODIUM INJ 40 MG/0.4 ML DISP.SYRIN SUBCUT SCH (09:10)
[2018-09-11] MEDS ORDERED: HYDRALAZINE HCL 25 MG TABLET PO ONE (09:45)
--- NOTE | 2018-09-11 11:16 | PDOC PROGRESS REPORT ---
Subjective Progress Note for:: 09/11/18 Subjective:: he had a bad night- he was anxious and agitation- security was called- spoke with pt about this- states yesterday was his [id number] anniversary and he was very close with her- he became very emotional about it. states at night time he gets anxious being in the hospital. he denies any new complaints. denies chest pain, SOB, abdominal pain, n/v or dizziness. Reason For Visit: RT CAVITORY LESION Physical Exam Vital Signs: Temp Pulse Resp BP Pulse Ox 97.8 F 84 20 162/113 H 95 09/11/18 09:09 09/11/18 09:09 09/11/18 09:09 09/11/18 09:09 09/11/18 09:09 Intake & Output 09/10/18 09/11/18 09/12/18 06:59 06:59 06:59 Intake Total 868 1780 Balance 868 1780 Weight 166 lb 7.184 oz 165 lb 5.547 oz General appearance: PRESENT: no acute distress Head exam: PRESENT: atraumatic, normocephalic Eye exam: PRESENT: EOMI. ABSENT: conjunctival injection, scleral icterus Ear exam: PRESENT: normal external ear exam Mouth exam: PRESENT: tongue midline Neck exam: ABSENT: tracheal deviation Respiratory exam: PRESENT: clear to auscultation nga, symmetrical Cardiovascular exam: PRESENT: +S1, +S2 Pulses: PRESENT: +2 pedal pulses bilateral GI/Abdominal exam: PRESENT: normal bowel sounds, soft. ABSENT: tenderness Extremities exam: ABSENT: pedal edema Neurological exam: PRESENT: alert, awake, oriented to person, oriented to place, oriented to time, oriented to situation, CN II-XII grossly intact Psychiatric exam: PRESENT: anxious, depressed, other - tearful at times. ABSENT: homicidal ideation, suicidal ideation Skin exam: PRESENT: dry, warm Results Laboratory Results: 09/08/18 05:25 09/09/18 09:39 09/08/18 04:25 Sputum AFB Smear Concentration - Final 09/08/18 04:25 Sputum Acid Fast Bacilli Smear - Final 09/07/18 10:38 Sputum AFB Smear Concentration - Final 09/07/18 10:38 Sputum Acid Fast Bacilli Smear - Final 09/06/18 13:20 Blood Blood Culture - Final Staphylococcus Lugdunensis Impressions: Chest X-Ray 09/06/18 10:00 IMPRESSION: Multiple cavitary infiltrates worrisome for septic emboli, necrotizing pneumonia, or tuberculosis. Findings called to the emergency doctor as above. Chest/Abdomen CTA 09/06/18 10:55 IMPRESSION: 1. Negative examination for pulmonary embolism. 2. There is extensive bilateral somewhat geographic and subpleural ground-glass pulmonary opacity and numerous cavitary lesions of various size. The largest lesions are clustered in the right upper lobe. Findings are most suggestive of septic embolism although cavitary infection and inflammatory processes such as vasculitis are differential considerations. Assessment & Plan - Diagnosis (1) Septic pulmonary embolism Is this a current diagnosis for this admission?: Yes (2) Tobacco dependence Is this a current diagnosis for this admission?: Yes (3) Bacteremia Is this a current diagnosis for this admission?: Yes (4) Anxiety Is this a current diagnosis for this admission?: Yes (5) Depression Is this a current diagnosis for this admission?: Yes (6) Elevated BP without diagnosis of hypertension Is this a current diagnosis for this admission?: Yes - Plan Summary Plan Summary: Septic pulmonary emboli-nothing new- but he has no IV access so we are ordering PICC line. continue with vancomycin. I appreciate ID consult. I have DC'd his cefepime as recommended. I have also consulted pulmonology and they are on board. I had a long discussion with patient about use of IV drugs. 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 He is very persistent that he does not use any IV drugs or not has used in the last 10 years. who is at bedside does admit that he uses needles at home to make his own tattoos on his arms. Although he does say that he has not had a tattoo in the last 5 years. At this time the plan is to send him to [facility] for a LEAH and then he will come back but unfortunately this will not get done until 09/13/18. This was arranged by the nursing elevator supervisor in the hospital. I appreciate her help. He remains on Lovenox 40 mg subcu for DVT prophylaxis. Bacteremia-blood culture is now growing staph Ludgunesis. He's Gram stains came back positive for E. coli and MSSA. i have called pharmacy and asked them to reach out to ID about this finding. will await recommendations. c/w minerva for now. Tobacco abuse-encourage patient to stop smoking. started on nicotine patch. anxiety- overnight he had agitation and anxiety- security had to be called- i will start him on Xanax Q8h PRN, trazodone at night and i have consulted Psych.
[2018-09-11] MEDS: NICOTINE 21 MG/24 HR PATCH.TD24 TD SCH (13:50)
[2018-09-11] MEDS: ALPRAZOLAM 0.5 MG TABLET PO PRN (14:00)
--- NOTE | 2018-09-11 15:27 | RADIOLOGY REPORT (SQ) ---
EXAM DESCRIPTION: PICC INSERTION; FLUORO/CV PLACEMENT; U/S GUIDE FOR VASCULAR ACCESS COMPLETED DATE/TIME: 09/11/2018 2:44 pm REASON FOR STUDY: IV antibiotics; IV ANTIBIOTICS COMPARISON: Two-view chest 09/06/2018 FLUOROSCOPY TIME: 30 seconds 1 ultrasound and 1 fluoroscopic digital image saved to PACS. TECHNIQUE: Fluoroscopic and ultrasound guided PICC placement. LIMITATIONS: None. PROCEDURE: After written consent and assessment were obtained, the patient was brought into the fluo roscopy room and placed supine on the table. Ultrasound evaluation of potential access sites were per formed. After successfully identifying a patent left basilic vein, the left arm was prepped and drape d in a sterile fashion along with the ultrasound probe. The entry site was anesthetized with 1% lidoc leidy. A 21 gauge 7 cm needle was advanced through the skin and into the basilic vein under live ultra sound guidance. An ultrasound image was saved to PACS confirming access site. A .018 guide wire was then inserted through the needle and into the venous system. The needle was then removed and an 11 b lade scalpel was used to make a 1cm skin incision. A 5 fr peel-away sheath was advanced over the wir e and into the venous system. A measurement was then made using the existing wire and live fluoroscop ic guidance. The wire was then removed and trimmed. The PICC was advanced through the peel-away sheat h and into the venous system. The peel-away sheath was removed and the catheter was adhered to the pa tients arm with a stat lock. The catheter was then aspirated and flushed and a sterile bandage was pl aced over the access site. A fluoroscopic spot image was saved to PACS confirming the catheter tip w ithin the superior vena cava. IMPRESSION: SUCCESSFUL PLACEMENT OF A 5 FR DUAL LUMEN 42 CM PICC IN THE LEFT BASILIC VEIN. COMMENT: Patient medication list reviewed: Yes- Quality ID# 130:Eligible professional attests to doc umenting in the medical record they obtained, updated, or reviewed the patient's current medications. . Quality ID 145: Final reports for procedures using fluoroscopy that document radiation exposure sravan lorenzo, or exposure time and number of fluorographic images (if radiation exposure indices are not avail able) Quality ID #76: The patient was prepped and draped using maximum sterile barrier technique including cap, mask, sterile gown, sterile gloves, a large sterile sheet, hand hygiene, and 2% Chlorhexidine fo r cutaneous antisepsis. When ultrasound is used, sterile ultrasound techniques are followed requiring sterile gel and sterile probes. TECHNICAL DOCUMENTATION: JOB ID: [id number] [employer]- All Rights Reserved rev-01/06 Reading location - IP/workstation name: [email or web address] [id number]
[2018-09-11] MEDS: AMLODIPINE BESYLATE 5 MG TABLET PO SCH (15:28)
--- NOTE | 2018-09-11 16:08 | Progress Note ---
Provider Note Provider Note: ID Consult Brief Follow Up Note Asked to review chart by Dr Aquino and spoke with him briefly via telephone. Pt not seen or examined. The patient presented with right sided chest pain, nonproductive cough, and SOB. He has history of remote IV heroin use but denies any recent use and had a negative toxicology screen for any opiates. He was found to have multiple peripherally located bilateral cavitary lung lesions. TB skin test was negative, and serial AFB smears have been negative. Mr Verdugo's blood culture from admission was finalized as showing growth of Staphylococcus lugdunensis in one bottle of four and his tracheal aspirate was finalized as showing growth of E coli and MSSA. Impression/Recommendations The patient's case is challenging, but Staphylococcus lugdunensis is a coagulase negative staphylococcus species that potentially can cause agdaagux valve endocarditis, and the appearance of his lung lesions are most suggestive of septic pulmonary emboli. 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 - Recommend repeat blood cx to document that the bacteremia has cleared - Recommend discontinuing IV vancomycin and starting IV cefazolin 2 g q8h based on susceptibility results for the Staph lugdunensis - Agree with plan for LEAH, given question of AoV vegetation seen on TTE - Duration of IV cefazolin unknown at present, pending results of LEAH and repeat BCx. Jorge Luis Johnson MD [facility] pager [phone]
[2018-09-11] MEDS: HYDRALAZINE HCL INJ/PF 20 MG/1 ML SDV IV PRN ×2 (16:43→21:57)
[2018-09-11] MEDS ORDERED: ALPRAZOLAM 0.5 MG TABLET PO ONE (19:00)
[2018-09-11] MEDS: TRAZODONE HCL 50 MG TABLET PO SCH (21:58)
[2018-09-11] MEDS: BUSPIRONE HCL 10 MG TABLET PO SCH (21:58)
[2018-09-11] MEDS ORDERED: BUSPIRONE HCL 10 MG TABLET PO SCH (22:00)
[2018-09-12] MEDS: VANCOMYCIN HCL 1,500 MG in DEXTROSE 5%-WATER 250 ML IV SCH (02:35)
[2018-09-12] MEDS: LANSOPRAZOLE 30 MG TAB.RAP.DR PO SCH ×2 (05:31→19:39)
[2018-09-12] MEDS: ACETAMINOPHEN 325 MG TABLET PO PRN ×2 (08:28→15:18)
[2018-09-12] MEDS: ALPRAZOLAM 0.5 MG TABLET PO PRN ×2 (08:28→19:39)
[2018-09-12] MEDS ORDERED: NORMAL SALINE 10 ML SDV (AFTER EACH USE) IV PRN (10:30)
[2018-09-12] MEDS ORDERED: CEFAZOLIN 2 GM/D5W RTU 2 GM/50 ML RTUPB IV SCH (14:00)
[2018-09-12] MEDS: ENOXAPARIN SODIUM INJ 40 MG/0.4 ML DISP.SYRIN SUBCUT SCH (14:52)
[2018-09-12] MEDS: BUSPIRONE HCL 10 MG TABLET PO SCH ×2 (15:04→21:51)
[2018-09-12] MEDS: AMLODIPINE BESYLATE 5 MG TABLET PO SCH (15:04)
[2018-09-12] MEDS: NICOTINE 21 MG/24 HR PATCH.TD24 TD SCH (15:08)
[2018-09-12] MEDS: CEFAZOLIN SODIUM 2 GM in DEXTROSE 5%-WATER 100 ML IV SCH ×2 (15:18→21:51)
--- NOTE | 2018-09-12 17:04 | PDOC PROGRESS REPORT ---
Subjective Progress Note for:: 09/12/18 Subjective:: Patient went for his LEAH at outside facility and return. He is a little bit sleepy and also has a headache but otherwise denies any chest pain, shortness of breath, abdominal pain, nausea/vomiting or dizziness. He has no other acute complaints at this time. Reason For Visit: RT CAVITORY LESION Physical Exam Vital Signs: Temp Pulse Resp BP Pulse Ox 97.5 F 94 18 155/104 H 96 09/12/18 15:28 09/12/18 15:28 09/12/18 15:28 09/12/18 15:28 09/12/18 15:28 Intake & Output 09/11/18 09/12/18 09/13/18 06:59 06:59 06:59 Intake Total 1780 1430 Balance 1780 1430 Weight 165 lb 5.547 oz 153 lb 7.068 oz General appearance: PRESENT: no acute distress Head exam: PRESENT: atraumatic, normocephalic Eye exam: PRESENT: EOMI. ABSENT: conjunctival injection, scleral icterus Ear exam: PRESENT: normal external ear exam Mouth exam: PRESENT: tongue midline Neck exam: ABSENT: tracheal deviation Respiratory exam: PRESENT: clear to auscultation nga, symmetrical Cardiovascular exam: PRESENT: +S1, +S2 Pulses: PRESENT: +2 pedal pulses bilateral GI/Abdominal exam: PRESENT: normal bowel sounds, soft. ABSENT: tenderness Extremities exam: ABSENT: pedal edema Neurological exam: PRESENT: awake, oriented to person, oriented to place, oriented to time, oriented to situation, CN II-XII grossly intact Skin exam: PRESENT: dry, warm Results Laboratory Results: 09/08/18 05:25 09/09/18 09:39 09/06/18 16:05 Blood Blood Culture - Final NO GROWTH IN 5 DAYS 09/06/18 13:20 Sputum Gram Stain - Final 09/06/18 13:20 Sputum Sputum Culture - Final Escherichia Coli Staphylococcus Aureus Normal Heather Impressions: Chest X-Ray 09/06/18 10:00 IMPRESSION: Multiple cavitary infiltrates worrisome for septic emboli, necrotizing pneumonia, or tuberculosis. Findings called to the emergency doctor as above. Chest/Abdomen CTA 09/06/18 10:55 IMPRESSION: 1. Negative examination for pulmonary embolism. 2. There is extensive bilateral somewhat geographic and subpleural ground-glass pulmonary opacity and numerous cavitary lesions of various size. The largest lesions are clustered in the right upper lobe. Findings are most suggestive of septic embolism although cavitary infection and inflammatory processes such as v asculitis are differential considerations. Guidance Fluoroscopy 09/11/18 00:00 IMPRESSION: SUCCESSFUL PLACEMENT OF A 5 FR DUAL LUMEN 42 CM PICC IN THE LEFT BASILIC VEIN. Interventional Vascular Procedure 09/11/18 00:00 IMPRESSION: SUCCESSFUL PLACEMENT OF A 5 FR DUAL LUMEN 42 CM PICC IN THE LEFT BASILIC VEIN. PICC Line Insertion 09/11/18 00:00 IMPRESSION: SUCCESSFUL PLACEMENT OF A 5 FR DUAL LUMEN 42 CM PICC IN THE LEFT BASILIC VEIN. Assessment & Plan - Diagnosis (1) Septic pulmonary embolism Is this a current diagnosis for this admission?: Yes (2) Tobacco dependence Is this a current diagnosis for this admission?: Yes (3) Bacteremia Is this a current diagnosis for this admission?: Yes (4) Anxiety Is this a current diagnosis for this admission?: Yes (5) Depression Is this a current diagnosis for this admission?: Yes (6) Elevated BP without diagnosis of hypertension Is this a current diagnosis for this admission?: Yes - Plan Summary Plan Summary: Septic pulmonary emboli-he has returned from [facility] with a negative LEAH result which showed no vegetation. This was a very good news and I discussed this with the patient. I appreciate ID consult and they recommended to stop Vanco and start with Ancef. See plan below. I have also consulted pulmonology and they are on board-Dr. Lockhart is planning on doing bronchoscopy on 09/14. I had a long discussion a few days ago with patient about use of IV drugs. 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 He is very persistent that he does not use any IV drugs or not has used in the last 10 years. who is at bedside does admit that he uses needles at home to make his own tattoos on his arms. Although he does say that he has not had a tattoo in the last 5 years. He remains on Lovenox 40 mg subcu for DVT prophylaxis. Bacteremia-blood culture is now growing staph Ludgunesis. He's Gram stains came back positive for E. coli and MSSA. Spoke with infectious disease and I appreciate their assistance. At this time we will stop vancomycin and start on Ancef every 8 2 g IV per infectious disease recommendation. I also repeated the cultures today and we will see if it shows anything. He did receive a PICC line yesterday. Tobacco abuse-encourage patient to stop smoking. started on nicotine patch. anxiety-we started him on Xanax Q8h PRN, trazodone at night and i have consulted Psych and there recommendations still pending
[2018-09-12 17:36] LABS: ANTIMYELOPEROXIDASE (MPO) AB <9.0 U/mL (0.0-9.0); CYTOPLASMIC (C-ANCA) <1:20 titer (Neg:<1:20)
[2018-09-12] MEDS: HYDRALAZINE HCL INJ/PF 20 MG/1 ML SDV IV PRN (20:14)
[2018-09-12] MEDS: TRAZODONE HCL 50 MG TABLET PO SCH (21:50)
[2018-09-12] MEDS: NORMAL SALINE 10 ML SDV (SCHEDULED) IV SCH (21:53)
[2018-09-13] MEDS: LANSOPRAZOLE 30 MG TAB.RAP.DR PO SCH ×2 (06:01→16:40)
[2018-09-13] MEDS: CEFAZOLIN SODIUM 2 GM in DEXTROSE 5%-WATER 100 ML IV SCH ×3 (06:01→21:23)
[2018-09-13] MEDS: ALPRAZOLAM 0.5 MG TABLET PO PRN ×2 (06:01→16:40)
[2018-09-13 07:23] LABS: ATYPICAL PANCA <1:20 titer (Neg:<1:20); PERINUCLEAR (P-ANCA) <1:20 titer (Neg:<1:20)
[2018-09-13] MEDS: NORMAL SALINE 10 ML SDV (SCHEDULED) IV SCH ×2 (09:23→21:13)
[2018-09-13] MEDS: AMLODIPINE BESYLATE 5 MG TABLET PO SCH (09:24)
[2018-09-13] MEDS: ACETAMINOPHEN 325 MG TABLET PO PRN (09:24)
[2018-09-13] MEDS: BUSPIRONE HCL 10 MG TABLET PO SCH ×2 (09:25→21:12)
[2018-09-13] MEDS: NICOTINE 21 MG/24 HR PATCH.TD24 TD SCH (09:31)
[2018-09-13] MEDS: ENOXAPARIN SODIUM INJ 40 MG/0.4 ML DISP.SYRIN SUBCUT SCH (09:35)
[2018-09-13] MEDS: ALBUTEROL SULFATE 0.083% NEB 2.5 MG/3 ML AMPUL NEB PRN (11:14)
[2018-09-13] MEDS ORDERED: GLUCAGON,HUMAN RECOMB 1 MG INJ SUBCUT PRN (16:45)
[2018-09-13] MEDS ORDERED: DEXTROSE 50%-WATER 25 GM/50 ML DISP.SYRIN IV PRN ×2 (16:45)
[2018-09-13] MEDS ORDERED: DEXTROSE 40% GEL 15 GM TUBE PO PRN ×2 (16:45)
[2018-09-13] MEDS ORDERED: LIDOCAINE 2% INJ-PF (20 MG/ML) 10 ML AMPUL NEB ONE (18:00)
--- NOTE | 2018-09-13 18:08 | PDOC PROGRESS REPORT ---
Subjective Progress Note for:: 09/13/18 Subjective:: I conversed with patient at bedside this afternoon. He is feeling well and has no complaints. He did tell me he became a little anxious last night but it was for short period. He denies chest pain, acute worsening shortness of breath, abdominal pain, nausea/vomiting or dizziness. We discussed about his care and the fact that he needs a bronchoscopy tomorrow and possibly discharge in 1-2 days after if he is stable. Reason For Visit: RT CAVITORY LESION Physical Exam Vital Signs: Temp Pulse Resp BP Pulse Ox 98.4 F 100 16 176/106 H 96 09/13/18 12:30 09/13/18 14:00 09/13/18 12:30 09/13/18 12:30 09/13/18 12:30 Intake & Output 09/12/18 09/13/18 09/14/18 06:59 06:59 06:59 Intake Total 1430 881 200 Balance 1430 881 200 Weight 153 lb 7.068 oz 162 lb 11.218 oz General appearance: PRESENT: no acute distress Head exam: PRESENT: atraumatic, normocephalic Eye exam: PRESENT: EOMI. ABSENT: conjunctival injection, scleral icterus Ear exam: PRESENT: normal external ear exam Mouth exam: PRESENT: tongue midline Neck exam: ABSENT: tracheal deviation Respiratory exam: PRESENT: clear to auscultation nga, symmetrical Cardiovascular exam: PRESENT: +S1, +S2 Pulses: PRESENT: +2 pedal pulses bilateral GI/Abdominal exam: PRESENT: normal bowel sounds, soft. ABSENT: tenderness Extremities exam: ABSENT: pedal edema Neurological exam: PRESENT: alert, awake, oriented to person, oriented to place, oriented to time, oriented to situation, CN II-XII grossly intact Skin exam: PRESENT: dry, warm Results Laboratory Results: 09/08/18 05:25 09/09/18 09:39 Impressions: Chest X-Ray 09/06/18 10:00 IMPRESSION: Multiple cavitary infiltrates worrisome for septic emboli, necrotizing pneumonia, or tuberculosis. Findings called to the emergency doctor as above. Chest/Abdomen CTA 09/06/18 10:55 IMPRESSION: 1. Negative examination for pulmonary embolism. 2. There is extensive bilateral somewhat geographic and subpleural ground-glass pulmonary opacity and numerous cavitary lesions of various size. The largest lesions are clustered in the right upper lobe. Findings are most suggestive of septic embolism although cavitary infection and inflammatory processes such as vasculitis are differential considerations. Guidance Fluoroscopy 09/11/18 00:00 IMPRESSION: SUCCESSFUL PLACEMENT OF A 5 FR DUAL LUMEN 42 CM PICC IN THE LEFT BASILIC VEIN. Interventional Vascular Procedure 09/11/18 00:00 IMPRESSION: SUCCESSFUL PLACEMENT OF A 5 FR DUAL LUMEN 42 CM PICC IN THE LEFT BASILIC VEIN. PICC Line Insertion 09/11/18 00:00 IMPRESSION: SUCCESSFUL PLACEMENT OF A 5 FR DUAL LUMEN 42 CM PICC IN THE LEFT BASILIC VEIN. Assessment & Plan - Diagnosis (1) Septic pulmonary embolism Is this a current diagnosis for this admission?: Yes (2) Tobacco dependence Is this a current diagnosis for this admission?: Yes (3) Bacteremia Is this a current diagnosis for this admission?: Yes (4) Anxiety Is this a current diagnosis for this admission?: Yes (5) Depression Is this a current diagnosis for this admission?: Yes (6) Elevated BP without diagnosis of hypertension Is this a current diagnosis for this admission?: Yes - Plan Summary Plan Summary: Septic pulmonary emboli-he has returned from [facility] with a negative LEAH result which showed no vegetation. This was a very good news and I discussed this with the patient. I appreciate ID consult and they recommended to stop Vanco and start with Ancef. See plan below. I have also consulted pulmonology and they are on board-Dr. Lockhart is planning on doing bronchoscopy tomorrow. We did rule out TB for his symptoms of night sweats. We are still not sure why he has septic emboli's since he is not an IV drug user. I had a long discussion a few days ago with patient about use of IV drugs. 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 He is very persistent that he does not use any IV drugs or not has used in the last 10 years. who is at bedside does admit that he uses needles at home to make his own tattoos on his arms. Although he does say that he has not had a tattoo in the last 5 years. He remains on Lovenox 40 mg subcu for DVT prophylaxis Bacteremia-blood culture is now growing staph Ludgunesis. He's Gram stains came back positive for E. coli and MSSA. Spoke with infectious disease and I appreciate their assistance. At this time we will stop vancomycin and start on Ancef every 8 2 g IV per infectious disease recommendation. I also repeated the cultures on 09/12/13 and so far it is negative for 24 hours. He did receive a PICC line on 09/12/18 Tobacco abuse-encourage patient to stop smoking. started on nicotine patch. anxiety-we started him on Xanax Q8h PRN, trazodone at night and i have consulted Psych and there recommendations still pending Elevated blood pressure without diagnosis of hypertension-I started him on a small dose of amlodipine at 5 mg but his blood pressure continues to be elevated. I have increased his amlodipine to 10 mg. Since he is tachycardic have also added metoprolol 12.5 mg twice daily starting tonight. His blood pressure medications may need to be titrated and most likely he has underlying hypertension he is unaware of. He is a smoker most likely while driving because of his high blood pressure. Disposition-he is to undergo bronchoscopy tomorrow with Dr. Lockhart-if everything looks okay and Dr. Lockhart is comfortable we may have to talk with infectious disease about possible discharge in 1-2 days on p.o. antibiotics. We will need to consult with infectious disease discussed the length and antibiotic of choice upon discharge. This is all dependent on what is found on bronchoscopy tomorrow.
[2018-09-13] MEDS: METOPROLOL TARTRATE 25 MG TABLET PO SCH (21:12)
[2018-09-13] MEDS: TRAZODONE HCL 50 MG TABLET PO SCH (21:12)
[2018-09-14] MEDS: CEFAZOLIN SODIUM 2 GM in DEXTROSE 5%-WATER 100 ML IV SCH ×3 (06:14→23:09)
[2018-09-14] MEDS: LANSOPRAZOLE 30 MG TAB.RAP.DR PO SCH ×2 (06:14→17:46)
[2018-09-14] MEDS: ALPRAZOLAM 0.5 MG TABLET PO PRN ×3 (06:14→23:10)
[2018-09-14] MEDS ORDERED: FENTANYL CITRATE INJ/PF 100 MCG/2 ML AMPUL ONE (06:57)
[2018-09-14] MEDS ORDERED: METOPROLOL TARTRATE PF/INJ 5 MG/5 ML SDV IV ONE (06:57)
[2018-09-14] MEDS ORDERED: MIDAZOLAM 2 MG/2 ML INJ ONE (06:58)
[2018-09-14] MEDS ORDERED: PROPOFOL INJ 200 MG/20 ML VIAL IV ONE (06:58)
[2018-09-14] MEDS ORDERED: LIDOCAINE 2% INJ-PF (20 MG/ML) 10 ML AMPUL NEB ONE (07:30)
[2018-09-14] MEDS: BUSPIRONE HCL 10 MG TABLET PO SCH ×2 (10:46→23:11)
[2018-09-14] MEDS: NORMAL SALINE 10 ML SDV (SCHEDULED) IV SCH ×2 (10:47→23:12)
[2018-09-14] MEDS: AMLODIPINE BESYLATE 5 MG TABLET PO SCH (10:47)
[2018-09-14] MEDS: NICOTINE 21 MG/24 HR PATCH.TD24 TD SCH (10:47)
[2018-09-14] MEDS: METOPROLOL TARTRATE 25 MG TABLET PO SCH ×2 (10:48→23:10)
[2018-09-14] MEDS: ENOXAPARIN SODIUM INJ 40 MG/0.4 ML DISP.SYRIN SUBCUT SCH (10:48)
[2018-09-14] MEDS: ALBUTEROL SULFATE 0.083% NEB 2.5 MG/3 ML AMPUL NEB PRN (13:01)
[2018-09-14] MEDS: ACETAMINOPHEN 325 MG TABLET PO PRN (14:20)
--- NOTE | 2018-09-14 16:17 | Progress Note ---
Provider Note Provider Note: ID Consult - Follow up Note Spoke with Dr Mancia via telephone regarding his patient Mr. Verdugo and reveiwed pt's chart. His LEAH did not show any valvular vegetations. His CT scan is most consistent with septic pulmonary emboli. He has a remote history of IVDU. His blood cultures only had methicillin sensitive Staphylococcus lugdunensis, and his sputum had E coli and MSSA. The appearance of septic pulmonary emboli imply that he had right sided (usually tricuspid valve) involvement. LEAH is very sensitive but not perfectly so, and embolization of a vegetation could also result in a negative LEAH. The patient has had no growth from repeat blood cultures and has remained afebrile. He has no comorbidities apart from current tobacco use, history of IV heroin use, had urine drug screen with canabis detected. Unfortunately, he also has no health insurance. 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 He has no other valvular or deep seated involvement that has been appreciated and no persistent bacteremia. - For uncomplicated right sided MSSA, a two week course is an option in the guidelines, without synergistic aminoglycoside per the most recent publication in 2015. He has already received effective IV antimicrobial therapy for a week now. He should complete at least another week of IV cefazolin 2 g q8h (until 09/21/17). - If the patient is unable or unwilling to receive IV cefazolin, second line or salvage options with oral medications should be offered to the patient for another 3 weeks. Oral antibiotics are not standard of care but would be preferable over no treatment at all. * Linezolid has excellent bioavailability and is the best oral option, but it could be prohibitively expensive; there may be patient assistance or access programs that case management would be able to investigate. * Otherwise, PO Bactrim 2 DS BID may be the most readily accessible option for the patient, but it is not possible to offer this up front as standard of care or equivalent to receiving an IV beta-lactam. Jorge Luis Johnson MD [facility] Infectious Diseases pager [phone]
--- NOTE | 2018-09-14 17:26 | PSYCHOLOGICAL NOTE ---
Psych Note - Psych Note Date seen by psych provider: 09/13/18 Psych Note: Reason for Consult: depression, anxiety and agitation Clinician notes consultation was requested 09/11/2018. Patient was not seen seen by the Behavioral Health Team 09/11/2018 due to patient flow in the emergency room and not seen on 09/12/2018 due the patient not being present at [facility] (patient had a procedure done at [facility] and then returned to [facility] after completed). Patient discloses that he is currently feeling upset because he just found out he is not can be able to get the procedure he thought he was getting today so he can go home. He is denies any history of mental health stating that "I had neve r had problems until I got here." He states that his has diagnosis of PTSD depression anxiety and has solid understanding of these diagnoses and feels that he currently suffering because a situational issue. He reports that back in 2008 he briefly did have a similar bout of depression when his [id number]-nzy as a considered her like a mother. He reports he is never gone through anything like this medically for himself and is been overwhelming. He reports that has been having difficulty sleeping the last 2 nights and is concerned that it the medication that was started. He disclosed that he has had some violent outbursts since being in the hospital and states that that is not normally him that he is not a violent or depressed person. Patient is alert and orientated to person, place, time and circumstance. Mood is anxious with congruent affect. Patient denies suicidal homicidal ideations. Delusions are absent behaviors congruent with intact reality based presentation i.e. organized and linear thought process. Eye contact is well-maintained. Conversational speech is within normal rate, tone and prosody. Intellectual abilities appear to be within the average range. Attention and concentration are good. Insight, judgment, impulse control are good. Medication recommendations per [facility]'s contracted psychiatrist Dr. Serge CORTEZ are as follows Please discontinue trazodone 311 (F32.9) unspecified depressive disorder; situational due to current medical status 300.00 (F41.9) unspecified anxiety disorder; situational due to current medical status Impression\\plan: Patient is cleared from acute psychiatric services. Patient reports anxiety and depression directly correlating to current medical status. He reports that he is not normally a violent or depressed person however since dealing with his significant medical concerns he has been feeling overwhelmed. Medication recommendations have been provided. Dr. Nava was consulted and care management this patient; attending physician agreement with recommendations and disposition
--- NOTE | 2018-09-14 19:56 | PDOC PROGRESS REPORT ---
Subjective Progress Note for:: 09/14/18 Subjective:: Doing better, no cough, denies fever or chills, no chest pain or shortness of breath or palpitations. 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 I spoke again with [facility] ID physician Dr. Johnson, it is unclear if he tolerated T of bronchoscopy at this time. Her recommendations from today as an notes today appreciated. Reason For Visit: RT CAVITORY LESION Physical Exam Vital Signs: Temp Pulse Resp BP Pulse Ox 97.5 F 117 H 20 166/108 H 99 09/14/18 14:52 09/14/18 19:00 09/14/18 14:52 09/14/18 14:52 09/14/18 14:52 Intake & Output 09/13/18 09/14/18 09/15/18 06:59 06:59 06:59 Intake Total 881 1732 2710 Balance 881 1732 2710 Weight 73.8 kg 64.4 kg General appearance: PRESENT: no acute distress Head exam: PRESENT: atraumatic, normocephalic Eye exam: PRESENT: EOMI. ABSENT: conjunctival injection, scleral icterus Ear exam: PRESENT: normal external ear exam Mouth exam: PRESENT: tongue midline Neck exam: ABSENT: tracheal deviation Respiratory exam: PRESENT: clear to auscultation nga, symmetrical Cardiovascular exam: PRESENT: +S1, +S2 Pulses: PRESENT: +2 pedal pulses bilateral GI/Abdominal exam: PRESENT: normal bowel sounds, soft. ABSENT: tenderness Extremities exam: ABSENT: pedal edema Neurological exam: PRESENT: alert, awake, oriented to person, oriented to place, oriented to time, oriented to situation, CN II-XII grossly intact Skin exam: PRESENT: dry, warm Results Laboratory Results: 09/08/18 05:25 09/09/18 09:39 09/06/18 13:20 Sputum Gram Stain - Final 09/06/18 13:20 Sputum Sputum Culture - Final Escherichia Coli Staphylococcus Aureus Normal Heather Impressions: Chest X-Ray 09/06/18 10:00 IMPRESSION: Multiple cavitary infiltrates worrisome for septic emboli, necrotizing pneumonia, or tuberculosis. Findings called to the emergency doctor as above. Chest/Abdomen CTA 09/06/18 10:55 IMPRESSION: 1. Negative examination for pulmonary embolism. 2. There is extensive bilateral somewhat geographic and subpleural ground-glass pulmonary opacity and numerous cavitary lesions of various size. The largest lesions are clustered in the right upper lobe. Findings are most suggestive of septic embolism although cavitary infection and inflammatory processes such as vasculitis are differential considerations. Guidance Fluoroscopy 09/11/18 00:00 IMPRESSION: SUCCESSFUL PLACEMENT OF A 5 FR DUAL LUMEN 42 CM PICC IN THE LEFT BASILIC VEIN. Interventional Vascular Procedure 09/11/18 00:00 IMPRESSION: SUCCESSFUL PLACEMENT OF A 5 FR DUAL LUMEN 42 CM PICC IN THE LEFT BASILIC VEIN. PICC Line Insertion 09/11/18 00:00 IMPRESSION: SUCCESSFUL PLACEMENT OF A 5 FR DUAL LUMEN 42 CM PICC IN THE LEFT BASILIC VEIN. Assessment & Plan - Diagnosis (1) Septic pulmonary embolism Is this a current diagnosis for this admission?: Yes (2) Anxiety Is this a current diagnosis for this admission?: Yes (3) Bacteremia Is this a current diagnosis for this admission?: Yes (4) Depression Is this a current diagnosis for this admission?: Yes (5) Tobacco dependence Is this a current diagnosis for this admission?: Yes - Plan Summary Plan Summary: Discussed with patient. We will continue IV antibiotics with cefazolin at this time. Patient has no medical insurance, will work with care management to see h [facility] can pick him up at home. He adamantly denies use of IV drugs for several years. Follow CBC and Chem-7 in a.m.
[2018-09-14] MEDS: HYDRALAZINE HCL INJ/PF 20 MG/1 ML SDV IV PRN (20:24)
[2018-09-14] MEDS: TRAZODONE HCL 50 MG TABLET PO SCH (23:10)
[2018-09-15] MEDS: LANSOPRAZOLE 30 MG TAB.RAP.DR PO SCH ×2 (05:25→16:40)
[2018-09-15] MEDS: CEFAZOLIN SODIUM 2 GM in DEXTROSE 5%-WATER 100 ML IV SCH ×3 (05:30→22:10)
[2018-09-15 06:06] LABS: ABSOLUTE BASOPHILS # (AUTO) 0.1 10^3/uL (0.0-0.2); ABSOLUTE LYMPHOCYTES (AUTO) 1.5 10^3/uL (0.5-4.7); ABSOLUTE MONOCYTES (AUTO) 0.7 10^3/uL (0.1-1.4); ABSOLUTE NEUT (AUTO) 3.5 10^3/uL (1.7-8.2); EOSINOPHILS % (AUTO) 0.6 % (0-6); HEMOGLOBIN 11.1 g/dL (13.5-17.0); LYMPHOCYTES % (AUTO) 25.7 % (13-45); MEAN CORPUSCULAR HEMOGLOBIN 31.5 pg (27.0-33.4); MEAN CORPUSCULAR HGB CONC 34.7 g/dL (32.0-36.0); MEAN CORPUSCULAR VOLUME 91 fl (80-97); MONOCYTES % (AUTO) 11.7 % (3-13); PLATELET COUNT 384 10^3/uL (150-450); RED BLOOD COUNT 3.52 10^6/uL (4.35-5.55); RED CELL DISTRIBUTION WIDTH 13.1 % (11.5-14.0); TOTAL CELLS COUNTED % (AUTO) 100 %; WHITE BLOOD COUNT 5.7 10^3/uL (4.0-10.5)
[2018-09-15 06:24] LABS: ANION GAP 7 (5-19); BLOOD UREA NITROGEN 8 mg/dL (7-20); CALCIUM 9.2 mg/dL (8.4-10.2); CARBON DIOXIDE 29 mmol/L (22-30); CHLORIDE 107 mmol/L (98-107); GLUCOSE 106 mg/dL (75-110); POTASSIUM 4.3 mmol/L (3.6-5.0); SODIUM 143.1 mmol/L (137-145)
[2018-09-15] MEDS: ACETAMINOPHEN 325 MG TABLET PO PRN (08:23)
[2018-09-15] MEDS: ONDANSETRON HCL INJ/PF 4 MG/2 ML SDV IV PRN (08:26)
[2018-09-15] MEDS: BUSPIRONE HCL 10 MG TABLET PO SCH ×2 (09:55→22:12)
[2018-09-15] MEDS: AMLODIPINE BESYLATE 5 MG TABLET PO SCH (09:56)
[2018-09-15] MEDS: METOPROLOL TARTRATE 25 MG TABLET PO SCH ×2 (09:56→22:11)
[2018-09-15] MEDS: NICOTINE 21 MG/24 HR PATCH.TD24 TD SCH (09:56)
[2018-09-15] MEDS: NORMAL SALINE 10 ML SDV (SCHEDULED) IV SCH ×2 (10:01→22:13)
[2018-09-15] MEDS: ENOXAPARIN SODIUM INJ 40 MG/0.4 ML DISP.SYRIN SUBCUT SCH (10:01)
--- NOTE | 2018-09-15 17:29 | PDOC PROGRESS REPORT ---
Subjective Progress Note for:: 09/15/18 Subjective:: 37-year-old male with septic pulmonary emboli. Doing better, no cough, denies fever or chills, no chest pain or shortness of breath or palpitations. 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 I spoke again with [facility] ID physician Dr. Johnson, it is unclear if he needed bronchoscopy at this time. Please see her notes from 09/14/18 for her recommendations. Reason For Visit: RT CAVITORY LESION Physical Exam Vital Signs: Temp Pulse Resp BP Pulse Ox 97.5 F 100 20 164/103 H 100 09/14/18 23:21 09/15/18 07:00 09/14/18 23:21 09/14/18 23:21 09/14/18 23:21 Intake & Output 09/14/18 09/15/18 09/16/18 06:59 06:59 06:59 Intake Total 1732 3283 200 Balance 1732 3283 200 Weight 64.4 kg 64.5 kg General appearance: PRESENT: no acute distress Head exam: PRESENT: atraumatic, normocephalic Eye exam: PRESENT: EOMI. ABSENT: conjunctival injection, scleral icterus Ear exam: PRESENT: normal external ear exam Mouth exam: PRESENT: tongue midline Neck exam: ABSENT: tracheal deviation Respiratory exam: PRESENT: clear to auscultation nga, symmetrical Cardiovascular exam: PRESENT: +S1, +S2 Pulses: PRESENT: +2 pedal pulses bilateral GI/Abdominal exam: PRESENT: normal bowel sounds, soft. ABSENT: tenderness Extremities exam: ABSENT: pedal edema Neurological exam: PRESENT: alert, awake, oriented to person, oriented to place, oriented to time, oriented to situation, CN II-XII grossly intact Skin exam: PRESENT: dry, warm Results Laboratory Results: 09/15/18 05:21 09/15/18 05:21 09/15/18 09/15/18 05:21 05:21 WBC 5.7 RBC 3.52 L Hgb 11.1 L Hct 32.0 L MCV 91 MCH 31.5 MCHC 34.7 RDW 13.1 Plt Count 384 Seg Neutrophils % 61.0 Lymphocytes % 25.7 Monocytes % 11.7 Eosinophils % 0.6 Basophils % 1.0 Absolute Neutrophils 3.5 Absolute Lymphocytes 1.5 Absolute Monocytes 0.7 Absolute Eosinophils 0.0 Absolute Basophils 0.1 Sodium 143.1 Potassium 4.3 Chloride 107 Carbon Dioxide 29 Anion Gap 7 BUN 8 Creatinine 0.66 Est GFR ( Amer) > 60 Est GFR (Non-Af Amer) > 60 Glucose 106 Calcium 9.2 09/06/18 13:20 Sputum Gram Stain - Final 09/06/18 13:20 Sputum Sputum Culture - Final Escherichia Coli Staphylococcus Aureus Normal Heather Impressions: Chest X-Ray 09/06/18 10:00 IMPRESSION: Multiple cavitary infiltrates worrisome for septic emboli, necrotizing pneumonia, or tuberculosis. Findings called to the emergency doctor as above. Chest/Abdomen CTA 09/06/18 10:55 IMPRESSION: 1. Negative examination for pulmonary embolism. 2. There is extensive bilateral somewhat geographic and subpleural ground-glass pulmonary opacity and numerous cavitary lesions of various size. The largest lesions are clustered in the right upper lobe. Findings are most suggestive of septic embolism although cavitary infection and inflammatory processes such as vasculitis are differential considerations. Guidance Fluoroscopy 09/11/18 00:00 IMPRESSION: SUCCESSFUL PLACEMENT OF A 5 FR DUAL LUMEN 42 CM PICC IN THE LEFT BASILIC VEIN. Interventional Vascular Procedure 09/11/18 00:00 IMPRESSION: SUCCESSFUL PLACEMENT OF A 5 FR DUAL LUMEN 42 CM PICC IN THE LEFT BASILIC VEIN. PICC Line Insertion 09/11/18 00:00 IMPRESSION: SUCCESSFUL PLACEMENT OF A 5 FR DUAL LUMEN 42 CM PICC IN THE LEFT BASILIC VEIN. Assessment & Plan - Diagnosis (1) Septic pulmonary embolism Is this a current diagnosis for this admission?: Yes (2) Anxiety Is this a current diagnosis for this admission?: Yes (3) Bacteremia Is this a current diagnosis for this admission?: Yes (4) Depression Is this a current diagnosis for this admission?: Yes (5) Tobacco dependence Is this a current diagnosis for this admission?: Yes - Plan Summary Plan Summary: We will continue IV antibiotics with cefazolin at this time (end date, per ID recommendation). Patient has no medical insurance, spoke with elvis velasco to see home health can pick him up at home, but no success. Also, patient will need to be on a once a day medication and cefazolin is every 8 hours. Patient continues to adamantly denies use of IV drugs for several years, which makes his source of septic emboli worrisome. Of note is that LEAH done at [place] has been negative. Patient agreeable to staying to complete course of antibiotics at this time.
[2018-09-15] MEDS: ALPRAZOLAM 0.5 MG TABLET PO PRN (17:36)
[2018-09-15] MEDS: ALBUTEROL SULFATE 0.083% NEB 2.5 MG/3 ML AMPUL NEB PRN (20:51)
[2018-09-15] MEDS: TRAZODONE HCL 50 MG TABLET PO SCH (22:11)
[2018-09-16] MEDS: CEFAZOLIN SODIUM 2 GM in DEXTROSE 5%-WATER 100 ML IV SCH ×3 (05:21→23:25)
[2018-09-16] MEDS: LANSOPRAZOLE 30 MG TAB.RAP.DR PO SCH ×2 (05:21→17:05)
[2018-09-16] MEDS: METOPROLOL TARTRATE 25 MG TABLET PO SCH ×2 (09:47→22:34)
[2018-09-16] MEDS: AMLODIPINE BESYLATE 5 MG TABLET PO SCH (09:48)
[2018-09-16] MEDS: BUSPIRONE HCL 10 MG TABLET PO SCH ×2 (09:48→22:34)
[2018-09-16] MEDS: ALPRAZOLAM 0.5 MG TABLET PO PRN ×2 (09:48→17:53)
[2018-09-16] MEDS: NICOTINE 21 MG/24 HR PATCH.TD24 TD SCH (09:48)
[2018-09-16] MEDS: NORMAL SALINE 10 ML SDV (SCHEDULED) IV SCH ×2 (09:49→22:35)
[2018-09-16] MEDS: ENOXAPARIN SODIUM INJ 40 MG/0.4 ML DISP.SYRIN SUBCUT SCH (09:56)
--- NOTE | 2018-09-16 14:25 | PDOC PROGRESS REPORT ---
Subjective Progress Note for:: 09/16/18 Subjective:: Patient was seen and examined. He is sitting comfortable in bed. Has no complaints. Reason For Visit: RT CAVITORY LESION Physical Exam Vital Signs: Temp Pulse Resp BP Pulse Ox 97.5 F 99 16 160/110 H 100 09/16/18 07:34 09/16/18 07:34 09/16/18 07:34 09/16/18 07:34 09/16/18 07:34 Intake & Output 09/15/18 09/16/18 09/17/18 06:59 06:59 06:59 Intake Total 3283 2099 Balance 3283 2099 Weight 142 lb 3.17 oz 162 lb 11.218 oz General appearance: PRESENT: no acute distress, cooperative Head exam: PRESENT: atraumatic, normocephalic Eye exam: PRESENT: EOMI. ABSENT: nystagmus Ear exam: ABSENT: bleeding, drainage Mouth exam: PRESENT: moist, neck supple Neck exam: ABSENT: meningismus, tenderness Respiratory exam: PRESENT: clear to auscultation nga. ABSENT: accessory muscle use Cardiovascular exam: PRESENT: RRR. ABSENT: systolic murmur GI/Abdominal exam: PRESENT: soft. ABSENT: ascites, mass, tenderness Extremities exam: ABSENT: joint swelling Neurological exam: PRESENT: alert, awake, oriented to person, oriented to place, oriented to time, oriented to situation Results Laboratory Results: 09/15/18 05:21 09/15/18 05:21 Impressions: Chest X-Ray 09/06/18 10:00 IMPRESSION: Multiple cavitary infiltrates worrisome for septic emboli, necrotizing pneumonia, or tuberculosis. Findings called to the emergency doctor as above. Chest/Abdomen CTA 09/06/18 10:55 IMPRESSION: 1. Negative examination for pulmonary embolism. 2. There is extensive bilateral somewhat geographic and subpleural ground-glass pulmonary opacity and numerous cavitary lesions of various size. The largest lesions are clustered in the right upper lobe. Findings are most suggestive of septic embolism although cavitary infection and inflammatory processes such as vasculitis are differential considerations. Guidance Fluoroscopy 09/11/18 00:00 IMPRESSION: SUCCESSFUL PLACEMENT OF A 5 FR DUAL LUMEN 42 CM PICC IN THE LEFT BASILIC VEIN. Interventional Vascular Procedure 09/11/18 00:00 IMPRESSION: SUCCESSFUL PLACEMENT OF A 5 FR DUAL LUMEN 42 CM PICC IN THE LEFT BASILIC VEIN. PICC Line Insertion 09/11/18 00:00 IMPRESSION: SUCCESSFUL PLACEMENT OF A 5 FR DUAL LUMEN 42 CM PICC IN THE LEFT BASILIC VEIN. Assessment & Plan - Diagnosis (1) Septic pulmonary embolism Is this a current diagnosis for this admission?: Yes Plan: Denies IV drug use. LEAH done at [facility] and was negative. Blood cultures positive for staph Lugdunensis. Continue Ancef until 09/21/2018 recommended by ID. (2) Bacteremia Is this a current diagnosis for this admission?: Yes Plan: Repeat blood culture shows clearance.
[2018-09-16] MEDS: HYDRALAZINE HCL INJ/PF 20 MG/1 ML SDV IV PRN (17:06)
[2018-09-16] MEDS: ALBUTEROL SULFATE 0.083% NEB 2.5 MG/3 ML AMPUL NEB PRN (19:06)
[2018-09-16] MEDS: TRAZODONE HCL 50 MG TABLET PO SCH (22:34)
[2018-09-16] MEDS ORDERED: CEFAZOLIN 1 GM/D5W RTU 2 GM/100 ML RTUPB IV ONE (23:01)
[2018-09-17] MEDS: CEFAZOLIN SODIUM 2 GM in DEXTROSE 5%-WATER 100 ML IV SCH ×3 (06:14→21:31)
[2018-09-17] MEDS: LANSOPRAZOLE 30 MG TAB.RAP.DR PO SCH ×2 (06:14→16:41)
[2018-09-17] MEDS: ALPRAZOLAM 0.5 MG TABLET PO PRN ×2 (08:36→16:41)
[2018-09-17] MEDS: METOPROLOL TARTRATE 25 MG TABLET PO SCH ×2 (10:20→21:31)
[2018-09-17] MEDS: BUSPIRONE HCL 10 MG TABLET PO SCH ×2 (10:21→21:31)
[2018-09-17] MEDS: ENOXAPARIN SODIUM INJ 40 MG/0.4 ML DISP.SYRIN SUBCUT SCH (10:21)
[2018-09-17] MEDS: NORMAL SALINE 10 ML SDV (SCHEDULED) IV SCH ×2 (10:22→21:32)
[2018-09-17] MEDS: NICOTINE 21 MG/24 HR PATCH.TD24 TD SCH (10:22)
[2018-09-17] MEDS: AMLODIPINE BESYLATE 5 MG TABLET PO SCH (10:23)
--- NOTE | 2018-09-17 14:49 | PDOC PROGRESS REPORT ---
Subjective Progress Note for:: 09/17/18 Subjective:: Patient was seen and examined. no complaints Reason For Visit: RT CAVITORY LESION Physical Exam Vital Signs: Temp Pulse Resp BP Pulse Ox 97.2 F 100 18 156/98 H 99 09/17/18 12:20 09/17/18 12:20 09/17/18 12:20 09/17/18 12:20 09/17/18 12:20 Intake & Output 09/16/18 09/17/18 09/18/18 06:59 06:59 06:59 Intake Total 2098 1710 750 Balance 2098 1710 750 Weight 162 lb 11.218 oz 161 lb 6.054 oz General appearance: PRESENT: no acute distress, cooperative Head exam: PRESENT: atraumatic, normocephalic Mouth exam: PRESENT: moist, neck supple Neck exam: ABSENT: meningismus, tenderness Respiratory exam: PRESENT: clear to auscultation nga. ABSENT: accessory muscle use Cardiovascular exam: PRESENT: RRR Pulses: PRESENT: normal radial pulses GI/Abdominal exam: PRESENT: normal bowel sounds, soft. ABSENT: tenderness Neurological exam: PRESENT: alert, awake, oriented to person, oriented to place, oriented to time, oriented to situation Results Laboratory Results: 09/15/18 05:21 09/15/18 05:21 Impressions: Chest X-Ray 09/06/18 10:00 IMPRESSION: Multiple cavitary infiltrates worrisome for septic emboli, necrotizing pneumonia, or tuberculosis. Findings called to the emergency doctor as above. Chest/Abdomen CTA 09/06/18 10:55 IMPRESSION: 1. Negative examination for pulmonary embolism. 2. There is extensive bilateral somewhat geographic and subpleural ground-glass pulmonary opacity and numerous cavitary lesions of various size. The largest lesions are clustered in the right upper lobe. Findings are most suggestive of septic embolism although cavitary infection and inflammatory processes such as vasculitis are differential considerations. Guidance Fluoroscopy 09/11/18 00:00 IMPRESSION: SUCCESSFUL PLACEMENT OF A 5 FR DUAL LUMEN 42 CM PICC IN THE LEFT BASILIC VEIN. Interventional Vascular Procedure 09/11/18 00:00 IMPRESSION: SUCCESSFUL PLACEMENT OF A 5 FR DUAL LUMEN 42 CM PICC IN THE LEFT BASILIC VEIN. PICC Line Insertion 09/11/18 00:00 IMPRESSION: SUCCESSFUL PLACEMENT OF A 5 FR DUAL LUMEN 42 CM PICC IN THE LEFT BASILIC VEIN. Assessment & Plan - Diagnosis (1) Septic pulmonary embolism Is this a current diagnosis for this admission?: Yes Plan: Denies IV drug use. LEAH done at [facility] and was negative. Blood cultures positive for staph Lugdunensis. Continue Ancef until 09/21/2018 recommended by ID. (2) Bacteremia Is this a current diagnosis for this admission?: Yes Plan: Repeat blood culture shows clearance.
[2018-09-17] MEDS: ONDANSETRON HCL INJ/PF 4 MG/2 ML SDV IV PRN (18:42)
[2018-09-17] MEDS: ALBUTEROL SULFATE 0.083% NEB 2.5 MG/3 ML AMPUL NEB PRN (19:12)
[2018-09-17] MEDS: TRAZODONE HCL 50 MG TABLET PO SCH (21:32)
[2018-09-18] MEDS: LANSOPRAZOLE 30 MG TAB.RAP.DR PO SCH ×2 (06:33→16:26)
[2018-09-18] MEDS: CEFAZOLIN SODIUM 2 GM in DEXTROSE 5%-WATER 100 ML IV SCH ×3 (06:33→21:13)
[2018-09-18] MEDS: ACETAMINOPHEN 325 MG TABLET PO PRN (06:38)
[2018-09-18] MEDS: ALPRAZOLAM 0.5 MG TABLET PO PRN ×2 (08:22→17:30)
[2018-09-18] MEDS: METOPROLOL TARTRATE 25 MG TABLET PO SCH ×2 (09:35→21:13)
[2018-09-18] MEDS: AMLODIPINE BESYLATE 5 MG TABLET PO SCH (09:36)
[2018-09-18] MEDS: NICOTINE 21 MG/24 HR PATCH.TD24 TD SCH (09:36)
[2018-09-18] MEDS: BUSPIRONE HCL 10 MG TABLET PO SCH ×2 (09:36→21:14)
[2018-09-18] MEDS: ENOXAPARIN SODIUM INJ 40 MG/0.4 ML DISP.SYRIN SUBCUT SCH (09:38)
[2018-09-18] MEDS: NORMAL SALINE 10 ML SDV (SCHEDULED) IV SCH ×2 (09:38→21:14)
--- NOTE | 2018-09-18 14:16 | PDOC PROGRESS REPORT ---
Subjective Progress Note for:: 09/18/18 Subjective:: Patient was seen and examined. no complaints Reason For Visit: RT CAVITORY LESION Physical Exam Vital Signs: Temp Pulse Resp BP Pulse Ox 97.3 F 111 H 20 148/101 H 99 09/18/18 07:30 09/18/18 10:57 09/18/18 10:57 09/18/18 10:57 09/18/18 10:57 Intake & Output 09/17/18 09/18/18 09/19/18 06:59 06:59 06:59 Intake Total 1710 2580 850 Balance 1710 2580 850 Weight 161 lb 6.054 oz 164 lb 3.91 oz General appearance: PRESENT: no acute distress, cooperative Head exam: PRESENT: atraumatic, normocephalic Mouth exam: PRESENT: moist, neck supple Neck exam: ABSENT: meningismus, tenderness Respiratory exam: PRESENT: clear to auscultation nga. ABSENT: accessory muscle use Cardiovascular exam: PRESENT: RRR Pulses: PRESENT: normal radial pulses GI/Abdominal exam: PRESENT: normal bowel sounds, soft. ABSENT: tenderness Rectal exam: PRESENT: deferred Musculoskeletal exam: PRESENT: ambulatory. ABSENT: deformity Neurological exam: PRESENT: alert, awake, oriented to person, oriented to place, oriented to time, oriented to situation Psychiatric exam: PRESENT: appropriate affect. ABSENT: agitated, anxious Results Laboratory Results: 09/15/18 05:21 09/15/18 05:21 09/12/18 17:20 Blood Blood Culture - Final NO GROWTH IN 5 DAYS 09/12/18 16:17 Blood Blood Culture - Final NO GROWTH IN 5 DAYS Impressions: Chest X-Ray 09/06/18 10:00 IMPRESSION: Multiple cavitary infiltrates worrisome for septic emboli, necroti zing pneumonia, or tuberculosis. Findings called to the emergency doctor as above. Chest/Abdomen CTA 09/06/18 10:55 IMPRESSION: 1. Negative examination for pulmonary embolism. 2. There is extensive bilateral somewhat geographic and subpleural ground-glass pulmonary opacity and numerous cavitary lesions of various size. The largest lesions are clustered in the right upper lobe. Findings are most suggestive of septic embolism although cavitary infection and inflammatory processes such as vasculitis are differential considerations. Guidance Fluoroscopy 09/11/18 00:00 IMPRESSION: SUCCESSFUL PLACEMENT OF A 5 FR DUAL LUMEN 42 CM PICC IN THE LEFT BASILIC VEIN. Interventional Vascular Procedure 09/11/18 00:00 IMPRESSION: SUCCESSFUL PLACEMENT OF A 5 FR DUAL LUMEN 42 CM PICC IN THE LEFT BASILIC VEIN. PICC Line Insertion 09/11/18 00:00 IMPRESSION: SUCCESSFUL PLACEMENT OF A 5 FR DUAL LUMEN 42 CM PICC IN THE LEFT BASILIC VEIN. Assessment & Plan - Diagnosis (1) Septic pulmonary embolism Is this a current diagnosis for this admission?: Yes Plan: Denies IV drug use. LEAH done at [facility] and was negative. Blood cultures positive for staph Lugdunensis. Continue Ancef until 09/21/2018 as recommended by ID. (2) Bacteremia Is this a current diagnosis for this admission?: Yes Plan: Repeat blood culture shows clearance.
[2018-09-18] MEDS: ALBUTEROL SULFATE 0.083% NEB 2.5 MG/3 ML AMPUL NEB PRN (17:13)
[2018-09-18] MEDS: TRAZODONE HCL 50 MG TABLET PO SCH (21:13)
[2018-09-19] MEDS: LANSOPRAZOLE 30 MG TAB.RAP.DR PO SCH ×2 (06:24→17:08)
[2018-09-19] MEDS: CEFAZOLIN SODIUM 2 GM in DEXTROSE 5%-WATER 100 ML IV SCH ×2 (06:24→13:47)
[2018-09-19] MEDS: ALBUTEROL SULFATE 0.083% NEB 2.5 MG/3 ML AMPUL NEB PRN ×2 (09:11→20:58)
[2018-09-19] MEDS: ALPRAZOLAM 0.5 MG TABLET PO PRN ×2 (09:29→17:30)
[2018-09-19] MEDS: BUSPIRONE HCL 10 MG TABLET PO SCH ×2 (09:30→21:17)
[2018-09-19] MEDS: AMLODIPINE BESYLATE 5 MG TABLET PO SCH (09:30)
[2018-09-19] MEDS: METOPROLOL TARTRATE 25 MG TABLET PO SCH ×2 (09:31→21:17)
[2018-09-19] MEDS: ENOXAPARIN SODIUM INJ 40 MG/0.4 ML DISP.SYRIN SUBCUT SCH (09:31)
[2018-09-19] MEDS: NICOTINE 21 MG/24 HR PATCH.TD24 TD SCH (09:32)
[2018-09-19] MEDS: NORMAL SALINE 10 ML SDV (SCHEDULED) IV SCH ×2 (09:33→21:18)
[2018-09-19 11:47] LABS: HEMATOCRIT 32.7 % (37.9-51.0); HEMOGLOBIN 11.4 g/dL (13.5-17.0); MEAN CORPUSCULAR HEMOGLOBIN 31.6 pg (27.0-33.4); MEAN CORPUSCULAR HGB CONC 34.8 g/dL (32.0-36.0); MEAN CORPUSCULAR VOLUME 91 fl (80-97); PLATELET COUNT 254 10^3/uL (150-450); RED CELL DISTRIBUTION WIDTH 13.2 % (11.5-14.0); WHITE BLOOD COUNT 5.7 10^3/uL (4.0-10.5)
[2018-09-19 12:10] LABS: ANION GAP 9 (5-19); BLOOD UREA NITROGEN 11 mg/dL (7-20); CALCIUM 9.5 mg/dL (8.4-10.2); CARBON DIOXIDE 29 mmol/L (22-30); CHLORIDE 105 mmol/L (98-107); GLUCOSE 113 mg/dL (75-110); POTASSIUM 4.1 mmol/L (3.6-5.0); SODIUM 142.5 mmol/L (137-145)
--- NOTE | 2018-09-19 14:00 | PDOC PROGRESS REPORT ---
Subjective Progress Note for:: 09/19/18 Subjective:: Patient was seen and examined. no complaints Reason For Visit: RT CAVITORY LESION Physical Exam Vital Signs: Temp Pulse Resp BP Pulse Ox 97.5 F 109 H 16 142/100 H 97 09/19/18 07:09 09/19/18 09:11 09/19/18 07:09 09/19/18 07:09 09/19/18 09:11 Intake & Output 09/18/18 09/19/18 09/20/18 06:59 06:59 06:59 Intake Total 2580 1850 100 Balance 2580 1850 100 Weight 164 lb 3.91 oz 155 lb 6.814 oz General appearance: PRESENT: no acute distress, cooperative Head exam: PRESENT: atraumatic, normocephalic Eye exam: ABSENT: conjunctival injection Ear exam: ABSENT: bleeding, drainage Mouth exam: PRESENT: moist, neck supple Neck exam: ABSENT: meningismus, tenderness Respiratory exam: PRESENT: clear to auscultation nga. ABSENT: accessory muscle use Cardiovascular exam: PRESENT: RRR Pulses: PRESENT: normal radial pulses GI/Abdominal exam: PRESENT: normal bowel sounds, soft. ABSENT: tenderness Rectal exam: PRESENT: deferred Musculoskeletal exam: PRESENT: ambulatory. ABSENT: deformity Neurological exam: PRESENT: alert, awake, oriented to person, oriented to place, oriented to time, oriented to situation Results Laboratory Results: 09/19/18 11:12 09/19/18 11:26 09/19/18 09/19/18 11:12 11:26 WBC 5.7 RBC 3.60 L Hgb 11.4 L Hct 32.7 L MCV 91 MCH 31.6 MCHC 34.8 RDW 13.2 Plt Count 254 Sodium 142.5 Potassium 4.1 Chloride 105 Carbon Dioxide 29 Anion Gap 9 BUN 11 Creatinine 0.78 Est GFR ( Amer) > 60 Est GFR (Non-Af Amer) > 60 Glucose 113 H Calcium 9.5 Impressions: Chest X-Ray 09/06/18 10:00 IMPRESSION: Multiple cavitary infiltrates worrisome for septic emboli, necrotizing pneumonia, or tuberculosis. Findings called to the emergency doctor as above. Chest/Abdomen CTA 09/06/18 10:55 IMPRESSION: 1. Negative examination for pulmonary embolism. 2. There is extensive bilateral somewhat geographic and subpleural ground-glass pulmonary opacity and numerous cavitary lesions of various size. The largest lesions are clustered in the right upper lobe. Findings are most suggestive of septic embolism although cavitary infection and inflammatory processes such as vasculitis are differential considerations. Guidance Fluoroscopy 09/11/18 00:00 IMPRESSION: SUCCESSFUL PLACEMENT OF A 5 FR DUAL LUMEN 42 CM PICC IN THE LEFT BASILIC VEIN. Interventional Vascular Procedure 09/11/18 00:00 IMPRESSION: SUCCESSFUL PLACEMENT OF A 5 FR DUAL LUMEN 42 CM PICC IN THE LEFT BASILIC VEIN. PICC Line Insertion 09/11/18 00:00 IMPRESSION: SUCCESSFUL PLACEMENT OF A 5 FR DUAL LUMEN 42 CM PICC IN THE LEFT BASILIC VEIN. Assessment & Plan - Diagnosis (1) Septic pulmonary embolism Is this a current diagnosis for this admission?: Yes Plan: patient denies IV drug use. LEAH done at [facility] and was negative for valve vegetations. Blood cultures positive for staph Lugdunensis. Continue Ancef until 09/21/2018 as recommended by ID. (2) Bacteremia Is this a current diagnosis for this admission?: Yes Plan: Repeat blood culture shows clearance.
[2018-09-19] MEDS: TRAZODONE HCL 50 MG TABLET PO SCH (21:17)
[2018-09-19] MEDS ORDERED: CEFAZOLIN SODIUM 2 GM in DEXTROSE 5%-WATER 100 ML IV SCH (22:00)
[2018-09-19] MEDS ORDERED: CEFAZOLIN 2 GM/D5W RTU 2 GM/50 ML RTUPB IV ONE (22:30)
[2018-09-19] MEDS ORDERED: CEFAZOLIN 1 GM/D5W RTU 1 GM/50 ML RTUPB IV ONE (22:30)
--- NOTE | 2018-09-19 22:31 | RADIOLOGY REPORT (SQ) ---
XR CHEST 1 VIEW HISTORY: Pneumonia. COMPARISON: CT scan dated 09/06/2018. FINDINGS: There are multiple cavitary lesions better seen on recent CT scan. There is a left upper extremity PICC with the tip in the proximal SVC; recommend advancement 5 cm. No discernible pneumothorax. No large pleural effusions. The osseous structures are intact. IMPRESSION: Left upper extremity PICC with tip in proximal SVC; recommend advancement 5 cm. No pneumothorax.
[2018-09-20] MEDS: LANSOPRAZOLE 30 MG TAB.RAP.DR PO SCH ×2 (05:41→16:35)
[2018-09-20] MEDS: ACETAMINOPHEN 325 MG TABLET PO PRN (05:46)
[2018-09-20] MEDS ORDERED: CEFAZOLIN 2 GM/D5W RTU 2 GM/50 ML RTUPB IV SCH ×2 (06:00→10:00)
[2018-09-20] MEDS ORDERED: CEFAZOLIN 1 GM/D5W RTU 1 GM/50 ML RTUPB IV SCH (06:00)
[2018-09-20] MEDS: ALPRAZOLAM 0.5 MG TABLET PO PRN ×2 (08:13→16:35)
[2018-09-20] MEDS: CEFAZOLIN SODIUM 2 GM in DEXTROSE 5%-WATER 100 ML IV SCH ×2 (10:35→18:00)
[2018-09-20] MEDS: BUSPIRONE HCL 10 MG TABLET PO SCH ×2 (10:36→21:13)
[2018-09-20] MEDS: METOPROLOL TARTRATE 25 MG TABLET PO SCH ×2 (10:36→21:11)
[2018-09-20] MEDS: AMLODIPINE BESYLATE 5 MG TABLET PO SCH (10:36)
[2018-09-20] MEDS: ENOXAPARIN SODIUM INJ 40 MG/0.4 ML DISP.SYRIN SUBCUT SCH (10:37)
[2018-09-20] MEDS: NORMAL SALINE 10 ML SDV (SCHEDULED) IV SCH ×2 (10:37→21:19)
[2018-09-20] MEDS: NICOTINE 21 MG/24 HR PATCH.TD24 TD SCH (10:38)
--- NOTE | 2018-09-20 15:42 | CONSULTATION REPORT E ---
Consultation Report NAME: MILY VELASCO : 1980 AGE: 37Y DATE: 09/19/2018 335 A TO: MIGUELITO MOREL M.D. FROM: PAPA BARKLEY M.D. Requesting Physician HISTORY OF PRESENT ILLNESS: The patient is a 37-year-old male who came in with increased shortness of breath on 09/05/2018. Consulted because of bilateral pulmonary opacities noted on chest x-ray and CAT scan. The patient apparently was coughing yellow, green phlegm during that time. 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 Currently denies any fever, chills, purulent sputum production, hemoptysis, or chest pain, feeling and breathing better. Had a sputum AFB, and fungi and bacteria x3 every morning, which were negative for smear. Blood Cultures are negative. AFB cultures and fungal culture are also pending, may take 4-6 weeks before the final results. Sputum culture 09/06/2018 showed Staphylococcus aureus and E. coli and blood culture 1 bottle showing Staphylococcus aureus. PAST MEDICAL HISTORY: None. PAST SURGICAL HISTORY: Orthopedic surgery. SOCIAL HISTORY: The patient has a history of incarceration about 20 years ago at the [facility] for 45 days. Denies IV drug abuse. Claims use of marijuana. The patient lives with who is active smoker. FAMILY HISTORY: Reviewed. The patient has had no family history. MEDICATIONS: None. ALLERGIES: No known drug allergies. REVIEW OF SYSTEMS: CONSTITUTIONAL: No fever or chills. No night sweats. EYES: No jaundice or pallor. EARS, NOSE, AND THROAT: No ear drainage. No nasal discharge. CHEST AND LUNGS: shortness of Breath and productive coughing with purulent sputum production prior to this admission. Had been 3 times at the emergency room for treatment. GASTROINTESTINAL: No nausea, vomiting, diarrhea. GENITOURINARY: No dysuria or hematuria. EXTREMITIES: No joint swelling. No cellulitis. PHYSICAL EXAMINATION: GENERAL: The patient is awake, alert, coherent, oriented x3. VITAL SIGNS: Temperature is 97.6 with a T-max of 98.8, blood pressure is 159/107, heart rate of 102, respiratory rate 16, 100% oxygen saturation on room air. EYES: No jaundice or pallor. EARS, NOSE, AND THROAT: No ear drainage. No nasal discharge. CHEST AND LUNGS: No wheezing, no rhonchi, no coarse crackles. CARDIOVASCULAR: S1, S2 distinct. Normal rate. Regular rhythm. ABDOMEN: Flabby. Positive bowel sounds. Soft, nondistended, nontender. EXTREMITIES: No joint swelling. No cellulitis. LABORATORY: CBC done today showed white count of 5.7, hemoglobin is 11.4, hematocrit is 22.7, platelet count is 254. Chemistry showed sodium is 142, potassium 4.1, chloride 105, CO2 is 29, BUN is 11, creatinine is 0.78, glucose 113, and calcium is 9.5. The patient's HIV 1 and 2 antibodies negative. Sputum AFB smears are negative x3. ASSESSMENT: 1. Pulmonary infiltrates bilaterally, suggestive of pneumonia, positive for E. coli and staphylococcus aureus sensitive to IV ciprofloxacin. PLAN/RECOMMENDATION: 1. The patient may go home on oral antibiotics, but cover both the E. coli and Staph aureus. The patient may be able to go home on levaquin p.o. for an additional 1-2 weeks of therapy. 2. Recommend pulmonary clinic followup in 3-4 weeks after hospital discharge. Will sign off tonight, and if you have any questions, please feel free to call me. DICTATING PHYSICIAN: MIGUELITO MOREL MD,JENNIFER,MPH [id number] PHY#: [id number] ID: [id number] JOB#: [id number] ACCT: [id number] cc:MIGUELITO MOREL M.D. > MTDD
--- NOTE | 2018-09-20 18:00 | PDOC PROGRESS REPORT ---
Subjective Progress Note for:: 09/20/18 Subjective:: Patient was seen and examined. no complaints. Looking forward to going home tomorrow. Reason For Visit: RT CAVITORY LESION Physical Exam Vital Signs: Temp Pulse Resp BP Pulse Ox 98.0 F 93 16 166/112 H 100 09/20/18 13:08 09/20/18 13:08 09/20/18 13:08 09/20/18 13:08 09/20/18 13:08 Intake & Output 09/19/18 09/20/18 09/21/18 06:59 06:59 06:59 Intake Total 1850 1850 1000 Balance 1850 1850 1000 Weight 155 lb 6.814 oz 169 lb 1.513 oz General appearance: PRESENT: cooperative, disheveled Head exam: PRESENT: atraumatic, normocephalic Mouth exam: PRESENT: moist, neck supple Neck exam: ABSENT: meningismus, tenderness Respiratory exam: PRESENT: clear to auscultation nga. ABSENT: accessory muscle use Cardiovascular exam: PRESENT: RRR Pulses: PRESENT: normal radial pulses GI/Abdominal exam: PRESENT: normal bowel sounds, soft. ABSENT: tenderness Rectal exam: PRESENT: deferred Musculoskeletal exam: PRESENT: ambulatory. ABSENT: deformity Neurological exam: PRESENT: alert, awake, oriented to person, oriented to place, oriented to time, oriented to situation Results Laboratory Results: 09/19/18 11:12 09/19/18 11:26 Impressions: Chest/Abdomen CTA 09/06/18 10:55 IMPRESSION: 1. Negative examination for pulmonary embolism. 2. There is extensive bilateral somewhat geographic and subpleural ground-glass pulmonary opacity and numerous cavitary lesions of various size. The largest lesions are clustered in the right upper lobe. Findings are most suggestive of septic embolism although cavitary infection and inflammatory processes such as vasculitis are differential considerations. Guidance Fluoroscopy 09/11/18 00:00 IMPRESSION: SUCCESSFUL PLACEMENT OF A 5 FR DUAL LUMEN 42 CM PICC IN THE LEFT BASILIC VEIN. Interventional Vascular Procedure 09/11/18 00:00 IMPRESSION: SUCCESSFUL PLACEMENT OF A 5 FR DUAL LUMEN 42 CM PICC IN THE LEFT BASILIC VEIN. PICC Line Insertion 09/11/18 00:00 IMPRESSION: SUCCESSFUL PLACEMENT OF A 5 FR DUAL LUMEN 42 CM PICC IN THE LEFT BASILIC VEIN. Chest X-Ray 09/19/18 20:00 IMPRESSION: Left upper extremity PICC with tip in proximal SVC; recommend advancement 5 cm. No pneumothorax. Assessment & Plan - Diagnosis (1) Septic pulmonary embolism Is this a current diagnosis for this admission?: Yes Plan: patient denies IV drug use. LEAH done at [facility] and was negative for valve vegetations. Blood cultures positive for staph Lugdunensis. Continue Ancef until 09/21/2018 as recommended by ID. Follow-up with pulmonology and primary care physician after discharge (2) Bacteremia Is this a current diagnosis for this admission?: Yes Plan: Repeat blood culture shows clearance.
[2018-09-20] MEDS: TRAZODONE HCL 50 MG TABLET PO SCH (21:11)
[2018-09-21] MEDS: CEFAZOLIN SODIUM 2 GM in DEXTROSE 5%-WATER 100 ML IV SCH ×3 (02:20→16:02)
[2018-09-21] MEDS: LANSOPRAZOLE 30 MG TAB.RAP.DR PO SCH ×2 (05:37→16:02)
[2018-09-21 08:59] VITALS: BP 143/98
[2018-09-21] MEDS: BUSPIRONE HCL 10 MG TABLET PO SCH (09:39)
[2018-09-21] MEDS: AMLODIPINE BESYLATE 5 MG TABLET PO SCH (09:41)
[2018-09-21] MEDS: METOPROLOL TARTRATE 25 MG TABLET PO SCH (09:42)
[2018-09-21] MEDS: NORMAL SALINE 10 ML SDV (SCHEDULED) IV SCH (09:44)
[2018-09-21] MEDS: ENOXAPARIN SODIUM INJ 40 MG/0.4 ML DISP.SYRIN SUBCUT SCH (09:44)
[2018-09-21] MEDS: NICOTINE 21 MG/24 HR PATCH.TD24 TD SCH (09:44)
[2018-09-21] MEDS: ALPRAZOLAM 0.5 MG TABLET PO PRN (09:51)
--- NOTE | 2018-09-21 12:52 | PDOC DISCHARGE SUMMARY ---
General - Admit/Disc Date/PCP Admission Date/Primary Care Provider: 09/06/18 11:23 Discharge Date: 09/21/18 - Discharge Diagnosis (1) Septic pulmonary embolism Is this a current diagnosis for this admission?: Yes (2) Bacteremia Is this a current diagnosis for this admission?: Yes (3) Depression Is this a current diagnosis for this admission?: Yes - Additional Information Resuscitation Status: Full Code Discharge Diet: As Tolerated Discharge Activity: Activity As Tolerated Prescriptions: Albuterol Sulfate [Ventolin Hfa 8 gm Mdi (1 Mdi/ER Disp)] 2 puff IH Q4HP PRN #1 inhaler PRN Reason: Alprazolam [Xanax 0.5 mg Tablet] 0.5 mg PO Q12HP PRN #14 tablet PRN Reason: Amlodipine Besylate [Norvasc 5 mg Tablet] 10 mg PO DAILY #30 tablet Buspirone HCl [Buspar 10 mg Tablet] 5 mg PO Q12 #60 tablet Metoprolol Tartrate [Lopressor 25 mg Tablet] 12.5 mg PO Q12 #60 tablet Trazodone HCl [Desyrel 50 mg Tablet] 50 mg PO QHS #30 tablet Home Medications: Albuterol Sulfate [Ventolin Hfa 8 gm Mdi (1 Mdi/ER Disp)] 2 puff IH Q4HP PRN #1 inhaler 09/21/18 Alprazolam [Xanax 0.5 mg Tablet] 0.5 mg PO Q12HP PRN #14 tablet 09/21/18 Amlodipine Besylate [Norvasc 5 mg Tablet] 10 mg PO DAILY #30 tablet 09/21/18 Buspirone HCl [Buspar 10 mg Tablet] 5 mg PO Q12 #60 tablet 09/21/18 Metoprolol Tartrate [Lopressor 25 mg Tablet] 12.5 mg PO Q12 #60 tablet 09/21/18 Nicotine [Nicoderm 21 mg/24 Hr Transderm Patch] 1 each TD DAILY patch.td24 09/21/18 Trazodone HCl [Desyrel 50 mg Tablet] 50 mg PO QHS #30 tablet 09/21/18 History of Present Illness History of Present Illness: MILY VELASCO is a 37 year old male presents to the emergency room due to cough and shortness of breath. This started 10 days prior to admission. Cough is nonproductive associated with shortness of breath. He was in the emergency room about 3 times prior to this admission. His first x-ray shows right upper lobe consolidation, subsequent x-rays positive for cavitation. He was initially treated with p.o. antibiotics. Hospital Course Hospital Course: Patient was initially started on vancomycin and cefepime. Blood culture was positive for Staphylococcus Lugdunensis and sputum culture positive for E. coli and MSSA. Appearance of lung consolidative cavitary masses was suspicious for septic emboli. Patient had a LEAH done and was negative for vegetations. Patient was reviewed by infectious disease and they recommended IV cefazolin 2 g every 8 hours until 09/21/2018. Patient was evaluated by psych oncologist and was prescribed trazodone and BuSpar alone. Patient is done was IV antibiotics and should follow-up with his primary care physician and pulmonology outpatient. He is in stable condition. Physical Exam Vital Signs: Temp Pulse Resp BP Pulse Ox 97.3 F 95 16 143/98 H 100 09/21/18 12:00 09/21/18 12:00 09/21/18 12:00 09/21/18 12:00 09/21/18 12:00 Intake & Output 09/20/18 09/21/18 09/22/18 06:59 06:59 06:59 Intake Total 1850 1674 477 Balance 1850 1674 477 Weight 169 lb 1.513 oz 160 lb 4.417 oz General appearance: PRESENT: no acute distress, cooperative Head exam: PRESENT: atraumatic, normocephalic Mouth exam: PRESENT: moist, neck supple Neck exam: ABSENT: meningismus, tenderness Respiratory exam: PRESENT: clear to auscultation nga. ABSENT: accessory muscle use Cardiovascular exam: PRESENT: RRR Pulses: PRESENT: normal radial pulses GI/Abdominal exam: PRESENT: normal bowel sounds, soft. ABSENT: tenderness Neurological exam: PRESENT: alert, awake, oriented to person, oriented to place, oriented to time, oriented to situation Psychiatric exam: ABSENT: agitated, anxious Results Laboratory Results: 09/19/18 11:12 09/19/18 11:26 Impressions: Chest/Abdomen CTA 09/06/18 10:55 IMPRESSION: 1. Negative examination for pulmonary embolism. 2. There is extensive bilateral somewhat geographic and subpleural ground-glass pulmonary opacity and numerous cavitary lesions of various size. The largest lesions are clustered in the right upper lobe. Findings are most suggestive of septic embolism although cavitary infection and inflammatory processes such as vasculitis are differential considerations. Guidance Fluoroscopy 09/11/18 00:00 IMPRESSION: SUCCESSFUL PLACEMENT OF A 5 FR DUAL LUMEN 42 CM PICC IN THE LEFT BASILIC VEIN. Interventional Vascular Procedure 09/11/18 00:00 IMPRESSION: SUCCESSFUL PLACEMENT OF A 5 FR DUAL LUMEN 42 CM PICC IN THE LEFT BASILIC VEIN. PICC Line Insertion 09/11/18 00:00 IMPRESSION: SUCCESSFUL PLACEMENT OF A 5 FR DUAL LUMEN 42 CM PICC IN THE LEFT BASILIC VEIN. Chest X-Ray 09/19/18 20:00 IMPRESSION: Left upper extremity PICC with tip in proximal SVC; recommend advancement 5 cm. No pneumothorax. Qualifiers - * PATIENT BEING DISCHARGED WITH ANY OF THE FOLLOWING DIAGNOSIS: No
== END 2018-09-21 17:48 | disposition home or self-care (01) | DRG 299 ==
LOC: ER 09:35 → EH 11:23 → 3S 15:31 → 5 09-20 19:22
PROVIDERS: ADMIT Internal Medicine; ATTEND Internal Medicine
PROC: 02HV33Z Insertion of Infusion Device into Superior Vena Cava, Percutaneous Approach (ICD-10-PCS; principal; 2018-09-11)
PROC: 3E02340 Introduction of Influenza Vaccine into Muscle, Percutaneous Approach (ICD-10-PCS; 2018-09-21)
DX: I74.9 Embolism and thrombosis of unspecified artery (principal); I26.90 Septic pulmonary embolism without acute cor pulmonale; R78.81 Bacteremia; F32.9 Major depressive disorder, single episode, unspecified; F17.210 Nicotine dependence, cigarettes, uncomplicated; E87.6 Hypokalemia; R82.998 Other abnormal findings in urine; F41.9 Anxiety disorder, unspecified; R03.0 Elevated blood-pressure reading, without diagnosis of hypertension; B95.61 Methicillin susceptible Staphylococcus aureus infection as the cause of diseases classified elsewhere; B96.20 Unspecified Escherichia coli [E. coli] as the cause of diseases classified elsewhere; Z71.6 Tobacco abuse counseling; Z23 Encounter for immunization
CPT/HCPCS: 36415; 36569; 71045; 71046; 71275; 76937; 77001; 80048; 80053; 80202; 80307; 81332; 82164; 82565; 83516; 85025; 85027; 85652; 86140; 86225; 86235; 86256; 86701; 87015; 87040; 87070; 87077; 87116; 87186; 87205; 87206; 90471; 90686; 93306; 94640; 96361; 96374; 99285; G0008; J0360; J0690; J0692; J1642; J1650; J1885; J2250; J2405; J2704; J3010; J3370; J3490; J7030; J7060; J7620

== ENCOUNTER 2018-09-27 09:42 | Emergency (ER) | payer SELFPAY ==
[2018-09-27] MEDS ORDERED: RINGERS SOLUTION,LACTATED 1,000 ML IV ONE (10:05)
[2018-09-27] MEDS ORDERED: MORPHINE SULFATE 10 MG/ML INJ IV ONE (10:06)
[2018-09-27] MEDS ORDERED: ONDANSETRON HCL INJ/PF 4 MG/2 ML SDV IV ONE (10:06)
--- NOTE | 2018-09-27 10:09 | ER Document Report ---
ED Medical Screen (RME) - General Chief Complaint: Abdominal Pain Stated Complaint: DIFFCULTY BREATHING Time Seen by Provider: 09/27/18 09:59 Notes: Patient is a 37-year-old male that presents to the emergency department for chief complaint of cough, abdominal pain, nausea and vomiting. Patient was recently admitted and then discharged after 17 days for treatment of sepsis, concern for septic emboli to the lungs, he was discharged this past , at home he is been feeling the same, not any better, he felt lightheaded like he may pass out as well. ROS: Other than noted above, the 12 point review of systems was reviewed with the keli bates and were negative, all pertinent findings are included in the HPI. PHYSICAL EXAMINATION: Vital signs reviewed. GENERAL: Ill-appearing male, diaphoretic HEAD: Atraumatic, normocephalic. EYES: Pupils equal round extraocular movements intact, conjunctiva are normal. ENT: Nares patent NECK: Normal range of motion CV: Heart regular rate and rhythm LUNGS: No respiratory distress, dry cough noted on exam however Musculoskeletal: Normal range of motion NEUROLOGICAL: Normal speech PSYCH: Appears anxious MDM: Patient seen and examined for rapid initial assessment. Vital signs reviewed. A comprehensive ED assessment and evaluation of the patient, analysis of test results and completion of the medical decision making process will be conducted by additional ED providers. *Note is created using voice recognition software and may contain spelling, syntax or grammatical errors. TRAVEL OUTSIDE OF THE [place] IN LAST 30 DAYS: No - Related Data Allergies/Adverse Reactions: No Known Drug Allergies Allergy (Verified 09/27/18 09:45) Past Medical History - Social History Chew tobacco use (# tins/day): No Frequency of alcohol use: None Drug Abuse: Marijuana - Past Medical History Cardiac Medical History: Reports: Hx Hypertension Renal/ Medical History: Denies: Hx Peritoneal Dialysis Past Surgical History: Reports: Hx Oral Surgery, Hx Orthopedic Surgery - Immunizations Hx Diphtheria, Pertussis, Tetanus Vaccination: Yes - March 2013 Physical Exam - Vital signs Vitals: Temp Pulse Resp BP Pulse Ox 98.1 F 83 16 147/107 H 98 09/27/18 09:50 09/27/18 09:50 09/27/18 09:50 09/27/18 09:50 09/27/18 09:50 Course - Vital Signs Vital signs: Temp Pulse Resp BP Pulse Ox 98.1 F 83 16 147/107 H 98 09/27/18 09:50 09/27/18 09:50 09/27/18 09:50 09/27/18 09:50 09/27/18 09:50
--- NOTE | 2018-09-27 10:50 | RADIOLOGY REPORT (SQ) ---
EXAM DESCRIPTION: CHEST 2 VIEWS COMPLETED DATE/TIME: 09/27/2018 10:29 am REASON FOR STUDY: cough COMPARISON: 09/19/2018, 09/11/2018, 09/06/[address] chest 09/06/2018 EXAM PARAMETERS: NUMBER OF VIEWS: two views TECHNIQUE: Digital Frontal and Lateral radiographic views of the chest acquired. RADIATION DOSE: NA LIMITATIONS: none FINDINGS: LUNGS AND PLEURA: Ill-defined nodular infiltrates persist in the right upper lobe, and at both lung bases less prominent than on chest films from 09/06/[address] 09/06/2018. On the current study, no new infiltrates are present. No pleural effusion. No pneumothorax. MEDIASTINUM AND HILAR STRUCTURES: No masses or contour abnormalities. HEART AND VASCULAR STRUCTURES: Heart normal size. No evidence for failure. BONES: No acute findings. HARDWARE: None in the chest. OTHER: No other significant finding. IMPRESSION: Further partial clearing of the cavitary infiltrates seen on 09/06/2018. TECHNICAL DOCUMENTATION: JOB ID: [id number] [employer]- All Rights Reserved Reading location - IP/workstation name: [email or web address]
[2018-09-27 11:23] LABS: ABSOLUTE BASOPHILS # (AUTO) 0.1 10^3/uL (0.0-0.2); ABSOLUTE EOSINOPHILS # (AUTO) 0.1 10^3/uL (0.0-0.6); ABSOLUTE LYMPHOCYTES (AUTO) 2.8 10^3/uL (0.5-4.7); ABSOLUTE MONOCYTES (AUTO) 0.6 10^3/uL (0.1-1.4); ABSOLUTE NEUT (AUTO) 3.6 10^3/uL (1.7-8.2); BASOPHILS % (AUTO) 0.8 % (0-2); EOSINOPHILS % (AUTO) 1.6 % (0-6); HEMATOCRIT 36.3 % (37.9-51.0); HEMOGLOBIN 12.7 g/dL (13.5-17.0); LYMPHOCYTES % (AUTO) 38.4 % (13-45); MEAN CORPUSCULAR HEMOGLOBIN 31.2 pg (27.0-33.4); MEAN CORPUSCULAR VOLUME 89 fl (80-97); MONOCYTES % (AUTO) 8.9 % (3-13); PLATELET COUNT 235 10^3/uL (150-450); RED BLOOD COUNT 4.07 10^6/uL (4.35-5.55); RED CELL DISTRIBUTION WIDTH 13.5 % (11.5-14.0); SEGMENTED NEUTROPHILS % (AUTO) 50.3 % (42-78); TOTAL CELLS COUNTED % (AUTO) 100 %; WHITE BLOOD COUNT 7.2 10^3/uL (4.0-10.5)
[2018-09-27 11:30] LABS: INTERNATIONAL RATION (INR) 0.88; PROTHROMBIN TIME 12.4 SEC (11.4-15.4)
[2018-09-27 11:31] LABS: VENOUS BLOOD BASE EXCESS -1.6 mmol/L; VENOUS BLOOD HCO3 21.5 mmol/L (20-32); VENOUS BLOOD PCO2 31.8 mmHg (35-63); VENOUS BLOOD PH 7.45 (7.30-7.42)
[2018-09-27 11:43] LABS: ALANINE AMINOTRANSFERASE 28 U/L (21-72); ALKALINE PHOSPHATASE 97 U/L (38-126); ANION GAP 12 (5-19); ASPARTATE AMINO TRANSFERASE 44 U/L (17-59); BILIRUBIN,DIRECT 0.2 mg/dL (0.0-0.4); BILIRUBIN,TOTAL 0.5 mg/dL (0.2-1.3); BLOOD UREA NITROGEN 14 mg/dL (7-20); CALCIUM 10.2 mg/dL (8.4-10.2); CARBON DIOXIDE 25 mmol/L (22-30); CHLORIDE 106 mmol/L (98-107); GLUCOSE 92 mg/dL (75-110); POTASSIUM 4.2 mmol/L (3.6-5.0); SODIUM 142.8 mmol/L (137-145); TOTAL PROTEIN 8.6 g/dL (6.3-8.2)
[2018-09-27 12:35] LABS: APPEARANCE,URINE CLEAR; BILIRUBIN,URINE NEGATIVE (NEGATIVE); COLOR,URINE COLORLESS; GLUCOSE, URINE NEGATIVE (NEGATIVE); KETONES,URINE NEGATIVE (NEGATIVE); LEUKOCYTE ESTERASE,URINE NEGATIVE (NEGATIVE); NITRITE,URINE NEGATIVE (NEGATIVE); PROTEIN,URINE NEGATIVE (NEGATIVE); URINE SPECIFIC GRAVITY 1.002; UROBILINOGEN,URINE NEGATIVE mg/dL (<2.0)
--- NOTE | 2018-09-27 12:55 | ER Document Report ---
ED General - General Chief Complaint: Abdominal Pain Stated Complaint: DIFFCULTY BREATHING Time Seen by Provider: 09/27/18 09:59 TRAVEL OUTSIDE OF THE [place] IN LAST 30 DAYS: No - HPI Notes: Patient is a 37-year-old male with a history of recent admission for septic emboli with IV antibiotics who presents the emergency department complaining of feeling weaker this morning. Patient was discharged 5 days ago. He does have appointment set up with pulmonology as well as his family doctor. Patient states he does continue to have a cough, but has been eating and drinking without difficulty. Patient states that his cough is worse in the evenings. He has noticed nausea and vomiting on 1-2 occasions at night primarily. Patient states that he was also started on amlodipine and metoprolol upon his discharge. Patient states that he was normally triple over triple for his blood pressure and now is 140s over 80s at home. Patient states that he primarily feels this weakness after taking those medicines. He does notice a feeling of sob with a cough, but can ambulate w/o difficulty or worsening symptoms. He does check his blood pressure routinely and has not been lower than his current normal. Patient states that he did have one episode of darker colored stool, but states that this is not black or melena appearing. Patient states that he has had melena before and this is nothing like that. He denies drug allergies. No other concerns or complaints. Denies any headache, fever, neck pain, changes in vision/speech/mentation/hearing, URI, sore throat, chest pain, palpitations, syncope, wheeze, dyspnea, abdominal pain, nausea/vomiting/diarrhea, urinary retention, dysuria, hematuria, loss of control of bowel or bladder, numbness/tingling, saddle anesthesia, muscle paralysis/weakness, or rash. - Related Data Allergies/Adverse Reactions: No Known Drug Allergies Allergy (Verified 09/27/18 09:45) Past Medical History - Social History Smoking Status: Current Every Day Smoker Chew tobacco use (# tins/day): No Frequency of alcohol use: None Drug Abuse: Marijuana Family History: Reviewed & Not Pertinent, Other - does not know family history Patient has suicidal ideation: No Patient has homicidal ideation: No - Past Medical History Cardiac Medical History: Reports: Hx Hypertension Renal/ Medical History: Denies: Hx Peritoneal Dialysis Past Surgical History: Reports: Hx Oral Surgery, Hx Orthopedic Surgery - Immunizations Hx Diphtheria, Pertussis, Tetanus Vaccination: Yes - March 2013 Review of Systems - Review of Systems -: Yes All other systems reviewed and negative Physical Exam - Vital signs Vitals: Temp Pulse Resp BP Pulse Ox 98.1 F 83 16 147/107 H 98 09/27/18 09:50 09/27/18 09:50 09/27/18 09:50 09/27/18 09:50 09/27/18 09:50 - Notes Notes: PHYSICAL EXAMINATION: GENERAL: Well-appearing, well-nourished and in no acute distress. A&ox4. HEAD: Atraumatic, normocephalic. EYES: Pupils equal round and reactive to light, extraocular movements intact, sclera anicteric, conjunctiva are normal. ENT: Nares patent and without discharge. oropharynx clear without exudates. No tonsilar hypertrophy or erythema. Moist mucous membranes. NECK: Normal range of motion, supple without lymphadenopathy LUNGS: Breath sounds clear to auscultation bilaterally and equal. No wheezes rales or rhonchi. HEART: Regular rate and rhythm without murmurs, rubs, gallops. ABDOMEN: Soft, nontender, nondistended abdomen. No guarding, no rebound. No masses appreciated. Normal bowel sounds present. No CVA tenderness bilaterally. Musculoskeletal: FROM to passive/active. Strength 5+/5. Sheldon neg. No asymmetry to LE's. Extremities: No cyanosis, clubbing, or edema b/l. Peripheral pulses 2+. Capillary refill less than 3 seconds. NEUROLOGICAL: Normal speech, normal gait. PSYCH: Normal mood, normal affect. SKIN: Warm, Dry, normal turgor, no rashes or lesions noted. Course - Re-evaluation Re-evalutation: 09/27/18 12:53 Patient is an afebrile, well-hydrated, 37-year-old male who presents emergency department for weakness with some nausea and vomiting in the setting of continued cough status post recent discharge for septic emboli. Vitals are acceptable without significant tachycardia, tachypnea, or hypoxia. PE is otherwise unremarkable. Patient's lungs are clear to auscultation bilaterally. He is nontoxic-appearing and is tolerating p.o. without difficulty. Patient is drinking Mountain Dew and ate candy in the room without any difficulties at this time. Patient has declined a rectal exam to further evaluate to make sure that there is no melena present. Patient is very adamant that there is no melena. He has reportedly only had 1-2 episodes of vomiting over the last couple nights it is usually associated with a cough. Patient is sitting comfortably on the table. His lab work was unremarkable which included a CBC, CMP, Lactic, VBG, Coags. His urinalysis was not run as the liquid appeared to have come may be from the ?sink as it was very clear. He is otherwise not having any urinary symptoms. I did review with Dr. Martin who is in agreement with dispo/plan. I will send him home with a prescription for Tessalon and Zofran. I do suspect that being on new blood pressure medicine may be attributing to his feeling of weakness. Recheck as scheduled with your PCM next week. Keep consult with pulmonology. Return to the ED with any other worsening/concerning symptoms. Patient is in agreement. - Vital Signs Vital signs: Temp Pulse Resp BP Pulse Ox 98.1 F 83 16 147/107 H 98 09/27/18 09:50 09/27/18 09:50 09/27/18 09:50 09/27/18 09:50 09/27/18 09:50 - Laboratory Result Diagrams: 09/27/18 11:07 09/27/18 11:07 Laboratory results interpreted by me: 09/27/18 09/27/18 09/27/18 11:07 11:07 11:07 RBC 4.07 L Hgb 12.7 L Hct 36.3 L VBG pH 7.45 H VBG pCO2 31.8 L Total Protein 8.6 H Discharge - Discharge Clinical Impression: Cough Nausea and vomiting Qualifiers: Vomiting type: unspecified Vomiting Intractability: non-intractable Qualified C ode(s): R11.2 - Nausea with vomiting, unspecified Condition: Stable Disposition: HOME, SELF-CARE Instructions: Antinausea Medication ([facility]) Additional Instructions: Maintain adequate fluid and food intake P[place] diet ([employer] Bananas, rice, apples, toast, etc Zofran as needed tylenol if needed Wugp-[id number] cold medicines as needed Monitor for any worsening symptoms Make sure you are staying hydrated enough to urinate and have normal BM's Recheck with your PCM as scheduled Keep consult with pulmonology as scheduled Return to the ED with any worsening symptoms and/or development of fever, headache, chest pain, palpitations, syncope, shortness of breath, trouble breathing, abdominal pain, n/v/d, blood in stool/urine, weakness, or other worsening symptoms that are concerning to you. Prescriptions: Benzonatate [Tessalon Perle 100 mg Capsule] 100 mg PO Q8HP PRN #15 cap PRN Reason: Ondansetron [Zofran Odt 4 mg Tablet] 1 - 2 tab PO Q4H PRN #15 tab.rapdis PRN Reason: For Nausea/Vomiting Forms: Elevated Blood Pressure, Smoking Cessation Education, Return to Work Referrals: LESLIE HARVEY MD [ACTIVE STAFF] - Follow up as needed
[2018-09-27 13:29] VITALS: BP 143/96
--- NOTE | 2018-09-27 21:14 | EKG REPORT ---
SEVERITY:- NORMAL ECG - SINUS RHYTHM : Confirmed by: Olya Wood 27-Sep-2018 21:13:26
== END 2018-09-27 13:00 | disposition home or self-care (01) ==
LOC: ER 09:42
DX: R05 Cough (principal); R11.2 Nausea with vomiting, unspecified; R10.9 Unspecified abdominal pain; R53.1 Weakness; R06.02 Shortness of breath; F17.200 Nicotine dependence, unspecified, uncomplicated; Z79.899 Other long term (current) drug therapy; I10 Essential (primary) hypertension
CPT/HCPCS: 93005; 99284; 96361; 96374; 96375; 36415; 87040; 87086; 82962; 85025; 85610; 80053; 81001; 82803; 83605; 71046; 93010; J2270; J2405; J7120

== ENCOUNTER → 2018-10-06 | Outpatient (CLI) | payer OTHER ==
--- NOTE | 2018-10-06 09:49 | RADIOLOGY REPORT (SQ) ---
EXAM DESCRIPTION: CHEST PA/LATERAL COMPLETED DATE/TIME: 10/06/2018 9:40 am REASON FOR STUDY: TRANSIENT CEREBRAL ISCHEMIC ATTACK, UNSPECIFIED, UNSPECIFIED VISUAL DISTURB COMPARISON: 09/27/2018 EXAM PARAMETERS: NUMBER OF VIEWS: two views TECHNIQUE: Digital Frontal and Lateral radiographic views of the chest acquired. RADIATION DOSE: NA LIMITATIONS: none FINDINGS: LUNGS AND PLEURA: Right upper lobe and right basilar nodular opacities remain but continue d to improved. No new findings. No pneumothorax or effusions. MEDIASTINUM AND HILAR STRUCTURES: No masses or contour abnormalities. HEART AND VASCULAR STRUCTURES: Heart normal size. No evidence for failure. BONES: No acute findings. HARDWARE: None in the chest. OTHER: No other significant finding. IMPRESSION: Nodular opacities in the right upper lobe and right base continue to improve. TECHNICAL DOCUMENTATION: JOB ID: [id number] [employer]- All Rights Reserved Reading location - IP/workstation name: [email or web address]
[2018-10-06 10:00] LABS: ABSOLUTE EOSINOPHILS # (AUTO) 0.2 10^3/uL (0.0-0.6); ABSOLUTE LYMPHOCYTES (AUTO) 2.5 10^3/uL (0.5-4.7); ABSOLUTE MONOCYTES (AUTO) 0.5 10^3/uL (0.1-1.4); ABSOLUTE NEUT (AUTO) 3.2 10^3/uL (1.7-8.2); BASOPHILS % (AUTO) 0.6 % (0-2); EOSINOPHILS % (AUTO) 3.2 % (0-6); HEMATOCRIT 37.5 % (37.9-51.0); HEMOGLOBIN 13.1 g/dL (13.5-17.0); MEAN CORPUSCULAR HEMOGLOBIN 31.6 pg (27.0-33.4); MEAN CORPUSCULAR HGB CONC 34.9 g/dL (32.0-36.0); MEAN CORPUSCULAR VOLUME 91 fl (80-97); MONOCYTES % (AUTO) 7.8 % (3-13); PLATELET COUNT 230 10^3/uL (150-450); RED BLOOD COUNT 4.14 10^6/uL (4.35-5.55); RED CELL DISTRIBUTION WIDTH 14.3 % (11.5-14.0); SEGMENTED NEUTROPHILS % (AUTO) 49.4 % (42-78); TOTAL CELLS COUNTED % (AUTO) 100 %; WHITE BLOOD COUNT 6.4 10^3/uL (4.0-10.5)
[2018-10-06 10:25] LABS: ALANINE AMINOTRANSFERASE 30 U/L (21-72); ALBUMIN 4.8 g/dL (3.5-5.0); ALKALINE PHOSPHATASE 96 U/L (38-126); ANION GAP 11 (5-19); ASPARTATE AMINO TRANSFERASE 24 U/L (17-59); BILIRUBIN,DIRECT 0.3 mg/dL (0.0-0.4); BILIRUBIN,TOTAL 0.6 mg/dL (0.2-1.3); BLOOD UREA NITROGEN 11 mg/dL (7-20); CALCIUM 9.8 mg/dL (8.4-10.2); CARBON DIOXIDE 26 mmol/L (22-30); CHLORIDE 107 mmol/L (98-107); CHOLESTEROL 205.67 mg/dL (0-200); GLUCOSE 87 mg/dL (75-110); POTASSIUM 4.7 mmol/L (3.6-5.0); SODIUM 143.8 mmol/L (137-145); TOTAL PROTEIN 7.8 g/dL (6.3-8.2); TRIGLYCERIDES 52 mg/dL (<150)
[2018-10-06 10:33] LABS: DIRECT LDL 78 mg/dL (<100)
[2018-10-06 10:35] LABS: C-REACTIVE PROTEIN < 5.0 mg/L (<10.0)
[2018-10-06 10:42] LABS: ERYTHROCYTE SEDIMENTATION RATE 19 mm/hr (0-15)
== END ==
LOC: OD 09:03
DX: G45.9 Transient cerebral ischemic attack, unspecified (principal); H53.9 Unspecified visual disturbance
CPT/HCPCS: 36415; 71046; 80053; 80061; 83036; 85025; 85652; 86038; 86140

== ENCOUNTER 2018-10-17 05:45 | Emergency (ER) | payer SELFPAY ==
[2018-10-17] MEDS ORDERED: ONDANSETRON HCL INJ/PF 4 MG/2 ML SDV IV ONE (06:44)
[2018-10-17 06:50] LABS: ABSOLUTE BASOPHILS # (AUTO) 0.1 10^3/uL (0.0-0.2); ABSOLUTE EOSINOPHILS # (AUTO) 0.2 10^3/uL (0.0-0.6); ABSOLUTE LYMPHOCYTES (AUTO) 2.4 10^3/uL (0.5-4.7); ABSOLUTE MONOCYTES (AUTO) 0.4 10^3/uL (0.1-1.4); ABSOLUTE NEUT (AUTO) 1.5 10^3/uL (1.7-8.2); BASOPHILS % (AUTO) 1.4 % (0-2); EOSINOPHILS % (AUTO) 4.2 % (0-6); HEMATOCRIT 39.4 % (37.9-51.0); LYMPHOCYTES % (AUTO) 52.1 % (13-45); MEAN CORPUSCULAR HEMOGLOBIN 32.7 pg (27.0-33.4); MEAN CORPUSCULAR HGB CONC 35.5 g/dL (32.0-36.0); MEAN CORPUSCULAR VOLUME 92 fl (80-97); MONOCYTES % (AUTO) 9.5 % (3-13); PLATELET COUNT 235 10^3/uL (150-450); RED BLOOD COUNT 4.28 10^6/uL (4.35-5.55); RED CELL DISTRIBUTION WIDTH 15.6 % (11.5-14.0); SEGMENTED NEUTROPHILS % (AUTO) 32.8 % (42-78); TOTAL CELLS COUNTED % (AUTO) 100 %; WHITE BLOOD COUNT 4.6 10^3/uL (4.0-10.5)
[2018-10-17 07:04] LABS: BLOOD UREA NITROGEN 10 mg/dL (7-20); CALCIUM 10.1 mg/dL (8.4-10.2); GLUCOSE 117 mg/dL (75-110)
[2018-10-17 07:05] LABS: ALANINE AMINOTRANSFERASE 15 U/L (21-72); ALKALINE PHOSPHATASE 97 U/L (38-126); ANION GAP 14 (5-19); ASPARTATE AMINO TRANSFERASE 21 U/L (17-59); BILIRUBIN,DIRECT 0.3 mg/dL (0.0-0.4); BILIRUBIN,TOTAL 0.6 mg/dL (0.2-1.3); CARBON DIOXIDE 25 mmol/L (22-30); CHLORIDE 107 mmol/L (98-107); POTASSIUM 3.6 mmol/L (3.6-5.0); SODIUM 146.1 mmol/L (137-145); TOTAL PROTEIN 8.1 g/dL (6.3-8.2)
[2018-10-17 07:26] LABS: AMORPHOUS SEDIMENT,URINE TRACE /HPF; APPEARANCE,URINE CLOUDY; BILIRUBIN,URINE NEGATIVE (NEGATIVE); COLOR,URINE YELLOW; GLUCOSE, URINE NEGATIVE (NEGATIVE); KETONES,URINE NEGATIVE (NEGATIVE); LEUKOCYTE ESTERASE,URINE NEGATIVE (NEGATIVE); NITRITE,URINE NEGATIVE (NEGATIVE); PROTEIN,URINE 100 mg/dL (NEGATIVE); URINE SPECIFIC GRAVITY 1.018; UROBILINOGEN,URINE NEGATIVE mg/dL (<2.0)
[2018-10-17] MEDS ORDERED: NORMAL SALINE 1000 ML 1,000 ML IV ONE (07:37)
[2018-10-17 09:34] LABS: LIPASE 123.3 U/L (23-300)
--- NOTE | 2018-10-17 10:16 | ER Document Report ---
ED General - General Chief Complaint: Vomiting Stated Complaint: VOMITING Time Seen by Provider: 10/17/18 07:37 Notes: Patient is a 38-year-old male presents to the emergency department for generalized nausea and vomiting this morning. Patient states for the last couple of years he has woken up every morning and vomited. States this morning it was "more than normal which is why he presents to the emergency room. Patient was already treated with antiemetics and is currently denying any nausea, abdominal pain. Patient's is in the room stating initially his primary care provider had put him on Pepcid and that had helped with the v omiting with the patient has been noncompliant with his medications. Past medical history: Hypertension, "lung issues." Medications: Metoprolol, BuSpar, amlodipine Allergies: None TRAVEL OUTSIDE OF THE [place] IN LAST 30 DAYS: No - Related Data Allergies/Adverse Reactions: No Known Drug Allergies Allergy (Verified 09/27/18 09:45) Past Medical History - General Information source: Patient, Relative - Social History Smoking Status: Current Every Day Smoker Chew tobacco use (# tins/day): No Frequency of alcohol use: Rare Drug Abuse: Marijuana Family History: Reviewed & Not Pertinent, Other - does not know family history Patient has suicidal ideation: No Patient has homicidal ideation: No - Past Medical History Cardiac Medical History: Reports: Hx Hypertension Renal/ Medical History: Denies: Hx Peritoneal Dialysis Past Surgical History: Reports: Hx Oral Surgery, Hx Orthopedic Surgery - Immunizations Hx Diphtheria, Pertussis, Tetanus Vaccination: Yes - March 2013 Review of Systems - Review of Systems Constitutional: denies: Fever, Weakness EENT: No symptoms reported Cardiovascular: No symptoms reported Respiratory: No symptoms reported Gastrointestinal: See HPI Genitourinary: No symptoms reported Male Genitourinary: No symptoms reported Musculoskeletal: No symptoms reported Skin: No symptoms reported Hematologic/Lymphatic: No symptoms reported - 20 Neurological/Psychological: No symptoms reported Physical Exam - Vital signs Vitals: Temp Pulse Resp BP Pulse Ox 97.7 F 120 H 16 149/95 H 95 10/17/18 05:53 10/17/18 05:53 10/17/18 05:53 10/17/18 05:53 10/17/18 05:53 - Notes Notes: GENERAL: Alert, interacts well. No acute distress. HEAD: Normocephalic, atraumatic. EYES: Pupils equal, round, and reactive to light. Extraocular movements intact. ENT: Oral mucosa moist, tongue midline. NECK: Full range of motion. Supple. Trachea midline. LUNGS: Clear to auscultation bilaterally, no wheezes, rales, or rhonchi. No respiratory distress. HEART: Regular rate and rhythm. No murmur ABDOMEN: Soft, non-tender. Non-distended. Bowel sounds present in all 4 quadrants. No McBurney's point tenderness, no Rios sign noted, no epigastric abdominal pain. EXTREMITIES: Moves all 4 extremities spontaneously. No edema, normal radial and dorsalis pedis pulses bilaterally. No cyanosis. BACK: no cervical, thoracic, lumbar midline tenderness. No saddle anesthesia, normal distal neurovascular exam. NEUROLOGICAL: Alert and oriented x3. Normal speech. cranial nerves II through XII grossly intact PSYCH: Normal affect, normal mood. SKIN: Warm, dry, normal turgor. No rashes or lesions noted. Course - Re-evaluation Re-evalutation: 10/17/18 10:17 Patient's labs reveal no signs of leukocytosis, he does have a slight elevation in his sodium at 146.1, patient was rehydrated with lactated Ringer's in the emergency room. Patient's labs show no change in potassium, patient's urine shows a specific gravity of 1.018 with negative ketones, no signs of urinary tract infection. Discussed with patient and at bedside that he should potentially start taking omeprazole or Pepcid again if that was initially helping with his vomiting. Discussed same also prescribing him antinausea medications for home use. Discussed following up with [facility] or [facility] for gastroenterology follow-up. Patient voices understanding is stable for discharge. - Vital Signs Vital signs: Temp Pulse Resp BP Pulse Ox 97.7 F 120 H 16 149/95 H 95 10/17/18 05:53 10/17/18 05:53 10/17/18 05:53 10/17/18 05:53 10/17/18 05:53 - Laboratory Result Diagrams: 10/17/18 06:35 10/17/18 06:35 Laboratory results interpreted by me: 10/17/18 10/17/18 10/17/18 06:35 06:35 06:58 RBC 4.28 L RDW 15.6 H Seg Neutrophils % 32.8 L Lymphocytes % 52.1 H Absolute Neutrophils 1.5 L Sodium 146.1 H Glucose 117 H ALT 15 L Urine Protein 100 H Discharge - Discharge Clinical Impression: Vomiting Qualifiers: Vomiting type: unspecified Vomiting Intractability: non-intractable Nausea presence: with nausea Qualified Code(s): R11.2 - Nausea with vomiting, unspecified Condition: Stable Disposition: HOME, SELF-CARE Instructions: Intravenous (IV) Fluids ([facility]), Vomiting ([facility]), Antinausea Medication ([facility]) Additional Instructions: As we discussed you have been seen and treated in the emergency department for your generalized vomiting. You should take medications as prescribed and follow-up with your primary care provider in the next 24-48 hours. Please also return to the emergency room should you have any other concerning symptoms. Prescriptions: Omeprazole 20 mg PO DAILY #30 tablet. Ondansetron [Zofran Odt 4 mg Tablet] 1 - 2 tab PO Q4H PRN #15 tab.rapdis PRN Reason: For Nausea/Vomiting Forms: Smoking Cessation Education, Return to Work
[2018-10-17 10:35] VITALS: BP 153/90
== END 2018-10-17 10:35 | disposition home or self-care (01) ==
LOC: ER 05:45
DX: R11.2 Nausea with vomiting, unspecified (principal); Z79.899 Other long term (current) drug therapy; I10 Essential (primary) hypertension; F17.200 Nicotine dependence, unspecified, uncomplicated
CPT/HCPCS: 99284; 96361; 96374; 36415; 83690; 85025; 80053; 81001; J2405; J7030

== ENCOUNTER → 2019-09-04 | Outpatient (CLI) | payer SELFPAY ==
--- NOTE | 2019-09-04 17:07 | RADIOLOGY REPORT (SQ) ---
EXAM DESCRIPTION: CT ABD/PELVIS WITH IV ORAL COMPLETED DATE/TIME: 09/04/2019 3:34 pm REASON FOR STUDY: R10.84 GENERALIZED ABDOMINAL PAIN, R11.2 NAUSEA WITH VOMITING, UNSPECIFIED R10.84 GENERALIZED ABDOMINAL PAIN R11.2 NAUSEA WITH VOMITING, UNSPECIFIED COMPARISON: 04/01/2014. TECHNIQUE: CT scan of the abdomen and pelvis performed with intravenous and oral contrast using ivania kvng scanning technique with dynamic intravenous contrast injection. Images reviewed with lung, soft t issue, and bone windows. Reconstructed coronal and sagittal MPR images reviewed. Delayed images for e valuation of the urinary system also acquired. All images stored on PACS. All CT scanners at this facility use dose modulation, iterative reconstruction, and/or weight based d osing when appropriate to reduce radiation dose to as low as reasonably achievable (ALARA). [facility]: Dose Right [facility]: CareDose [facility]: Dose Right [facility]: Teradose 4D [facility]: [employer] CONTRAST TYPE AND DOSE: contrast/concentration: Isovue 350.00 mg/ml; Total Contrast Delivered: 100.0 ml; Total Saline Delivered: 35.1 ml RENAL FUNCTION: Creatinine 0.8. RADIATION DOSE: CT Rad equipment meets quality standard of care and radiation dose reduction techniq ues were employed. CTDIvol: 5.3 - 6.8 mGy. DLP: 690 mGy-cm.. LIMITATIONS: None. FINDINGS: LOWER CHEST: No significant findings. No nodules or infiltrates. LIVER: Normal size. No masses. No dilated ducts. SPLEEN: Normal size. No focal lesions. PANCREAS: No masses. No significant calcifications. No adjacent inflammation or peripancreatic fluid collections. Pancreatic duct not dilated. GALLBLADDER: No identified stones by CT criteria. No inflammatory changes to suggest cholecystitis. ADRENAL GLANDS: No significant masses or asymmetry. RIGHT KIDNEY AND URETER: No solid masses. No significant calcification. No hydronephrosis or hydroure ter. LEFT KIDNEY AND URETER: No solid masses. No significant calcification. No hydronephrosis or hydrouret er. AORTA AND VESSELS: No aneurysm. No dissection. Renal arteries, SMA, celiac without stenosis. RETROPERITONEUM: No retroperitoneal adenopathy, hemorrhage or masses. BOWEL AND PERITONEAL CAVITY: No obstruction. No visualized masses. No free fluid. No inflammatory ch anges or thickening of bowel wall. APPENDIX: Normal. PELVIS: No significant masses. Normal bladder. No free fluid. ABDOMINAL WALL: No masses. No hernias. BONES: No significant or acute findings. OTHER: No other significant finding. IMPRESSION: NO SIGNIFICANT OR ACUTE FINDINGS IN THE ABDOMEN OR PELVIS. TECHNICAL DOCUMENTATION: JOB ID: [id number] Quality ID # [id number]: Final reports with documentation of one or more dose reduction techniques (e.g., Au tomated exposure control, adjustment of the mA and/or kV according to patient size, use of iterative reconstruction technique) 2010 [employer]- All Rights Reserved Reading location - IP/workstation name: [email or web address]
== END ==
LOC: RAD 12:25
PROVIDERS: ATTEND Physician Assistant
DX: R10.84 Generalized abdominal pain (principal); R11.2 Nausea with vomiting, unspecified
CPT/HCPCS: 74177; 82565

== ENCOUNTER → 2020-02-21 | Outpatient (CLI) | payer SELFPAY ==
--- NOTE | 2020-02-21 11:02 | ER [facility] ASSESSMENT REPORT ---
Intake - In the Last 14 days Have you traveled outside [place]?: No Have you been in close contact with someone CONFIRMED: Yes Worked in Healthcare?: No - Symptoms Subjective Fever([place] feverish): Yes Chills: Yes Muscule Aches: Yes Runny Nose: Yes Sore Throat: Yes Cough (New or worsening chronic cough): Yes Shortness of breath: Yes Nausea or Vomiting: Yes Headache: Yes Abdominal Pain: Yes Diarrhea(3 or more loose stools in last 24 hours): Yes - Do you have any of the following Chronic lung disease: Asthma or emphysema or COPD: Yes Chronic Lung Disease Comment: COPD Cystic Fibrosis: No Diabetes: No High Blood Pressure: No Cardiovascular Disease: Yes Chronic Kidney Disease: No Chronic Liver Disease: No Chronic blood disorder like Sickle Cell Disease: No Weak immune system due to disease or medication: No Neurologic condition that limits movement: No Developmental delay - Moderate to Severe: No Recent (within past 2 weeks) or current : No Morbid Obesity (>100 pounds over ideal weight): No - Objective Temperature: 97.4 F Pulse Rate: 115 Respiratory Rate: 18 Blood Pressure: 138/93 O2 Sat by Pulse Oximetry: 94 Objective: Given above, testing performed: If Testing Performed: Test Specimen Type Sent to General - General Information source: Patient Notes: Patient presents to the [facility] for screening for the coronavirus. Patient reports having symptoms for the past 2 years although has recent known exposure to someone who tested positive. - Related Data Allergies/Adverse Reactions: No Known Drug Allergies Allergy (Verified 09/27/18 09:45) Past Medical History - General Information source: Patient - Social History Smoking Status: Current Every Day Smoker Family History: Reviewed & Not Pertinent, Other - does not know family history - Past Medical History Cardiac Medical History: Reports: Hx Hypertension, Other - Septic emboli Pulmonary Medical History: Reports: Hx Bronchitis, Hx COPD Renal/ Medical History: Denies: Hx Peritoneal Dialysis Past Surgical History: Reports: Hx Oral Surgery, Hx Orthopedic Surgery Physical Exam - Notes Notes: Full physical exam could not be performed due to covid 19 isolation protocols. Constitutional: Nontoxic appearance, no acute distress Eyes: Nonicteric, extraocular movements intact, sclera clear ENT: Erythematous posterior pharynx, no exudates, no tonsillar hypertrophy Cardiovascular: Heart rate and rhythm regular, mild tachycardia, no JVD Respiratory: Scattered wheezing bilaterally, nonlabored breathing, no use of accessory muscles, no tachypnea Gastrointestinal: Abdomen not distended Muculoskeletal: Moves all extremities well Skin: Normal color Neuro: Awake alert oriented, normal speech Psych: Normal mood and affect Diagnostic Results Laboratory Results: The patient was evaluated during the global Covid 19 pandemic, and that diagnosis was suspected/considered upon their initial presentation. Their evaluation, treatment and testing was consistent with current guidelines for patients who present with complaints or symptoms that may be related to Covid 19. Patient presents with upper respiratory symptoms worrisome for possible Covid 19. Patient does not have emergency worrying symptoms such as difficulty breathing,chest pain, pressure, confusion or cyanosis. Patient's is nontoxic in appearance. Patient does have wheezing bilaterally, will send for prescription for steroids as well as inhaler. Patient is a smoker. Good return precautions have been discussed with patient, patient verbalized understanding and is agreeable with discharge plan of care at this time. [facility] Discharge - Discharge Clinical Impression: Wheezing, COVID-19 screening Condition: Stable Disposition: Home; Selfcare
[2020-02-21 11:31] VITALS: BP 138/93
[2020-02-21 14:19] LABS: A TYPE INFLUENZA AG NEGATIVE (NEGATIVE); B INFLUENZA AG NEGATIVE (NEGATIVE)
--- NOTE | 2020-02-25 13:25 | Progress Note ---
Provider Note Provider Note: Strep culture positive. Patient informed by phone of results. Rx for penicillin sent to patient's preferred pharmacy.
== END ==
LOC: RDC 10:30
PROVIDERS: ATTEND Physician Assistant
DX: Z20.828 Contact with and (suspected) exposure to other viral communicable diseases (principal); R50.9 Fever, unspecified; R05 Cough; R06.02 Shortness of breath; J02.9 Acute pharyngitis, unspecified; R06.2 Wheezing; R09.89 Other specified symptoms and signs involving the circulatory and respiratory systems; M79.10 Myalgia, unspecified site; R11.0 Nausea; R51 Headache; R10.9 Unspecified abdominal pain; R19.7 Diarrhea, unspecified; J44.9 Chronic obstructive pulmonary disease, unspecified; I10 Essential (primary) hypertension; F17.200 Nicotine dependence, unspecified, uncomplicated
CPT/HCPCS: 87070; 87880; 87635; 87077; 87804; C9803; 99201; 99211